=== PATIENT | female | born 1935 | race Caucasian/White ===

== ENCOUNTER 2018-12-06 07:14 | Inpatient (IN) | payer MEDICARE ==
[2018-12-06] MEDS ORDERED: NALOXONE 0.4 MG/ML 1 ML VIAL IV PRN (10:48)
[2018-12-06] MEDS ORDERED: ACETAMINOPHEN TAB 325 MG TAB PO PRN (10:48)
[2018-12-06 12:00] LABS: Glucose,Whole Blood 148 mg/dL (75-99)
[2018-12-06] MEDS: INSULIN ASPART (NovoLOG) 100 UNIT/ML VIAL SQ SCH ×3 (12:14→20:23)
--- NOTE | 2018-12-06 12:14 | P.CONS ---
History of Present Illness - Reason for Consult Consult date: 12/06/18 GI bleeding Requesting physician: Marce Marcelo - Chief Complaint Abdominal pain nausea vomiting diarrhea - History of Present Illness 83-year-old female history of cholecystectomy, breast carcinoma with lumpectomy radiation in 2006, diabetes mellitus, glaucoma, anemia maintained on oral iron admitted to [facility] emergency room with nausea vomiting epigastric pain diarrhea 1 week recently traveled to [place]. Prior to vacationing she felt well with no complaints. Patient states last Wednesday when driving down to [place] she had a bagel within a few hours developed intractable nausea vomiting diarrhea. The symptoms persisted through the weekend she cut her vacation short and with stroke home on Wednesday. Diarrhea has subsided. She reports black colored diarrhea and took herself off of oral iron about a month ago. Pain located mostly in the upper abdomen. FOBT positive. BUN 25. Creatinine 0.8. White count 7. Hemoglobin on admission 13.3 decreased to 11.8. Platelet 162. Magnesium 1.0. Amylase lipase LFTs within normal limits. Lactic acid normal 1.7. Denies weight loss fever or chills. No recent EGD. She was scheduled for outpatient colonoscopy screening next month and [facility] with Dr. Tracey. No alcohol or NSAIDs. CT abdomen and pelvis reported inflammatory changes of the duodenum and proximal jejunum favoring an infectious inflammatory enteritis duodenitis with normal appendix. Colonic diverticulosis without diverticulitis. Review of Systems Constitutional: Denies fever, chills, sweats, weight gain, or loss. HEENT: Negative for migraines, blurred vision or loss, earaches, drainage, tinnitus, oral mucosal lesions, dysphagia, or odynophagia. CARDIAC: Negative for chest pain, arrhythmias, or palpitation. RESPIRATORY: Negative for shortness of breath, hemoptysis, cough, or sputum production. GI: See HPI for pertinent findings. : Negative for hematuria, urgency, frequency, polyuria, or dysuria. GYNc: Denies possibility of . Negative vaginal discharge. MUSCULOSKELETAL: Negative for muscle aches, swelling, arthritis, and arthralgias. NEUROLOGIC: Negative for stroke or TIA. ENDOCRINE: Negative for thyroid problems. SKIN: Negative for rash or itching. PSYCHIATRIC: Negative history for depression and anxiety Past Medical History Past Medical History: Cancer, Eye Disorder, Hypertension Additional Past Medical History / Comment(s): 2006 R breast cancer with lumpectomy/radiation, NIDDM type II, neuropathy bilateral hands/feet, anemia, occasional low back pain, bilateral glaucoma History of Any Multi-Drug Resistant Organisms: None Reported Past Surgical History: Back Surgery, Breast Surgery, Cholecystectomy, Hysterectomy Additional Past Surgical History / Comment(s): R breast lumpectomy, D&C, low back surgery x2 including caging, EGD, colonoscopy, surgery for kidney stones. Past Anesthesia/Blood Transfusion Reactions: No Reported Reaction Additional Past Anesthesia/Blood Transfusion Reaction / Comm: Pt has received blood in past without reaction. Smoking Status: Never smoker - Past Family History Father Additional Family Medical History / Comment(s): Father in a hunting accident when pt was 5 yrs old. Mother Family Medical History: Cancer Additional Family Medical History / Comment(s): Leukemia Medications and Allergies Home Medications Medication Instructions Recorded Confirmed Type Aspirin [Vance Aspirin EC] 81 mg PO DAILY 12/06/18 12/06/18 History Cholecalciferol (Vitamin D3) 2,000 unit PO DAILY 12/06/18 12/06/18 History [Vitamin D3] Cod Liver Oil 1 cap PO DAILY 12/06/18 12/06/18 History Glimepiride [Amaryl] 1 mg PO HS 12/06/18 12/06/18 History Hydrochlorothiazide [Hydrodiuril] 12.5 mg PO DAILY 12/06/18 12/06/18 History Latanoprost [Xalatan 0.005%] 1 drop BOTH EYES HS 12/06/18 12/06/18 History Liraglutide [Victoza 2-Earl] 1.2 ml SQ DAILY 12/06/18 12/06/18 History Loperamide HCl [Imodium A-D] 4 mg PO BID 12/06/18 12/06/18 History Oxybutynin Chloride [Ditropan] 5 mg PO DAILY 12/06/18 12/06/18 History Potassium 99 mg PO DAILY 12/06/18 12/06/18 History Pregabalin [Lyrica] 50 mg PO BID 12/06/18 12/06/18 History Quinapril HCl [Accupril] 20 mg PO BID 12/06/18 12/06/18 History Ranitidine HCl [Zantac] 150 mg PO DAILY 12/06/18 12/06/18 History Timolol 0.5% Ophth Soln [Timoptic 1 drop BOTH EYES BID 12/06/18 12/06/18 History 0.5% Ophth Soln] Zolpidem [Ambien] 5 mg PO HS 12/06/18 12/06/18 History metFORMIN HCL [Glucophage] 1,000 mg PO PC-SUPPER 12/06/18 12/06/18 History metFORMIN HCL [Glucophage] 500 mg PO DAILY 12/06/18 12/06/18 History Allergies Allergy/AdvReac Type Severity Reaction Status Date / Time sulfamethoxazole Allergy Unknown Verified 12/06/18 11:11 [From Bactrim] trimethoprim [From Bactrim] Allergy Unknown Verified 12/06/18 11:11 Physical Exam Vitals: Vital Signs Temp Pulse Resp BP Pulse Ox 12/06/18 09:38 97.8 F 64 16 149/70 97 Intake and Output 12/05/18 12/06/18 12/06/18 22:59 06:59 14:59 Other: Voiding Method Toilet Weight 76.8 kg General appearance: The patient is alert, oriented, in no acute distress. HET: Head is normocephalic and atraumatic. Pupils are equal and reactive. Oropharynx is clear without lesions. Neck: Supple without lymphadenopathy. Trachea midline. Heart: S1 S2. Regular rate and rhythm. Lungs: No crackles or wheezes are heard. Abdomen: Soft, nontender, nondistended with bowel sounds. No peritoneal signs. No palpable organomegaly or masses. Extremities: Normal skin color and turgor. No cyanosis, rash, ulceration, clubbing, or edema. Radial and pedal pulses are 2/4 bilaterally. Neurological: No focal deficits. Strength and sensation are grossly intact. Results CT scan - abdomen: report reviewed ([facility] report reviewed by Dr. Edgar) Assessment and Plan (1) Abdominal pain Narrative/Plan: 83-year-old female admitted with mild normocytic mild acute blood loss anemia hemoglobin 13.3 decreased to 11.8 with intractable epigastric upper abdominal pain nausea vomiting black colored diarrhea [address] reported inflammatory changes of the duodenum and proximal jejunum favoring an infectious inflammatory enteritis duodenitis with normal appendix. Colonic diverticulosis without diverticulitis. Current Visit: Yes Status: Acute Code(s): R10.9 - UNSPECIFIED ABDOMINAL PAIN SNOMED Code(s): 42813849 (2) Nausea vomiting and diarrhea Current Visit: Yes Status: Acute Code(s): R11.2 - NAUSEA WITH VOMITING, UNSPECIFIED; R19.7 - DIARRHEA, UNSPECIFIED SNOMED Code(s): 5882470 (3) Guaiac positive stools Current Visit: Yes Status: Acute Code(s): R19.5 - OTHER FECAL ABNORMALITIES SNOMED Code(s): 38476892 (4) Anemia Current Visit: Yes Status: Acute Code(s): D64.9 - ANEMIA, UNSPECIFIED SNOMED Code(s): 711806443 Plan: 1. EGD. Stool studies if diarrhea returns. Protonix 40 mg twice daily. CBC monitoring. Patient can follow up in the outpatient setting with Dr. Tracey next month for colonoscopy screening. The administrative assistant office manager has discussed the risks, benefits and alternative therapies for the above-mentioned procedure and for both sedation/analgesia as well as necessary blood product administration, if indicated, as they pertain to this patient. The patient has indicated understanding and acceptance of the risks and procedures discussed. Thank you for this kind referral and the opportunity to participate in the care of your patient. This consultation was discussed with Dr. Edgar. The impression and plan of care have been directed as dictated.
[2018-12-06] MEDS ORDERED: IV FLUID CONTINUATION 900 ML IV ONE (14:41)
[2018-12-06] MEDS ORDERED: LIDOCAINE 1% INJ 10MG/ML (20 ML MDV) ONE (14:41)
[2018-12-06] MEDS ORDERED: PROPOFOL 10 MG/ML 20 ML VIAL IV ONE (14:41)
--- NOTE | 2018-12-06 15:13 | P.PCN ---
Date of Procedure: 12/06/18 Description of Procedure: BRIEF HISTORY: 83-year-old female history of cholecystectomy, breast carcinoma with lumpectomy radiation in 2006, diabetes mellitus, glaucoma, anemia maintained on oral iron admitted to [facility] emergency room with nausea vomiting epigastric pain diarrhea 1 week recently traveled to [place]. Prior to vacationing she felt well with no complaints. Patient states last Wednesday when driving down to [place] she had a bagel within a few hours developed intractable nausea vomiting diarrhea. The symptoms persisted through the weekend she cut her vacation short and with stroke home on Wednesday. Diarrhea has subsided. She reports black colored diarrhea and took herself off of oral iron about a month ago. Pain located mostly in the upper abdomen. FOBT positive. BUN 25. Creatinine 0.8. White count 7. Hemoglobin on admission 13.3 decreased to 11.8. Platelet 162. Magnesium 1.0. Amylase lipase LFTs within normal limits. Lactic acid normal 1.7. Denies weight loss fever or chills. No recent EGD. She was scheduled for outpatient colonoscopy screening next month and [facility] with Dr. Tracey. No alcohol or NSAIDs. CT abdomen and pelvis reported inflammatory changes of the duodenum and proximal jejunum favoring an infectious inflammatory enteritis duodenitis with normal appendix. Colonic diverticulosis without diverticulitis. PROCEDURE PERFORMED: Esophagogastroduodenoscopy with biopsy. PREOPERATIVE DIAGNOSIS: Epigastric abdominal pain, nausea and vomiting, stool positive for occult blood, melena. ESTIMATED BLOOD LOSS: Minimal. IV sedation per anesthesia. PROCEDURE: After informed consent was obtained, the patient was brought into the endoscopy unit. IV sedation was administered by Anesthesia under continuous monitoring. Initially the Olympus GIF-190 video endoscope was inserted into the mouth. Jocy jani intubated without any difficulty. It was gradually advanced into the stomach and duodenum and carefully examined. The bulb appeared normal, however there was severe duodenitis in the second third portion of the duodenum marked by erythema and multiple superficial ulcerations with biopsies taken. The scope at this time was withdrawn to the stomach, adequately insufflated with air, and upon careful examination, mucosa of the antrum, body, cardia and the fundus appeared normal except for some mild scattered erythema in the antrum and body which were biopsied. The scope was then withdrawn into the esophagus. The GE junction was located at 39 cm from the incisors. LA grade B esophagitis noted in the distal esophagus and biopsied. The patient tolerated the procedure well. IMPRESSION: 1. Severe duodenitis with multiple superficial nonbleeding ulcers in the second and third portion, biopsied. 2. Mild gastritis antrum and body, biopsied. 3. LA grade B esophagitis in the distal esophagus, biopsied. RECOMMENDATIONS: The findings of this examination were discussed with the patient, her son and . Await pathology from biopsies. Continue Protonix therapy twice daily. Continue to monitor hemoglobin and hematocrit and transfuse as needed. Okay for diet. Labs have been ordered including CBC, CMP and lactic acid. Consideration for CT angiography if ischemia noted on pathology.
--- NOTE | 2018-12-06 16:06 | P.HPIM ---
History of Present Illness 83-year-old the female was transferred from [facility] for possibility of endoscopy. Patient presented there with complaints of nausea vomiting epigastric abdominal pain has been going on for about one week patient appears to have chronic diarrhea as well. Patient was having flulike symptoms he appears to have gastroenteritis CAT scan of the abdomen did not show any dermatitis but did show significant inflammatory changes in the ER in one proximal jejunum consistent with enteritis and duodenitis. Patient had a ques tionable history of dark stools. Although patient is signs of mentation at home. Discussed with gastroneurology tended of being upper GI endoscopy which showed 6 severe esophagitis. Patient denied any recent antibiotic use but will obtain C. diff testing. Patient is on IV Protonix at this time. Donaldo pain is diffuse and mostly crampy presently resolved Review of Systems REVIEW OF SYSTEMS: CONSTITUTIONAL: No fever, no malaise, no fatigue. HEENT: No recent visual problems or hearing problems. Denied any sore throat. CARDIOVASCULAR: No chest pain, orthopnea, PND, no palpitations, no syncope. PULMONARY: No shortness of breath, no cough, no hemoptysis. GASTROINTESTINAL: As mentioned in HPI NEUROLOGICAL: No headaches, no weakness, no numbness. HEMATOLOGICAL: Denies any bleeding or petechiae. GENITOURINARY: Denies any burning micturition, frequency, or urgency. MUSCULOSKELETAL/RHEUMATOLOGICAL: Denies any joint pain, swelling, or any muscle pain. ENDOCRINE: Denies any polyuria or polydipsia. The rest of the 14-point review of systems is negative. Past Medical History Past Medical History: Cancer, Eye Disorder, Hypertension Additional Past Medical History / Comment(s): 2007 R breast cancer with lumpectomy/radiation, NIDDM type II, neuropathy bilateral hands/feet, anemia, occasional low back pain, bilateral glaucoma History of Any Multi-Drug Resistant Organisms: None Reported Past Surgical History: Back Surgery, Breast Surgery, Cholecystectomy, Hysterectomy Additional Past Surgical History / Comment(s): R breast lumpectomy, D&C, low back surgery x2 including caging, EGD, colonoscopy, surgery for kidney stones. Past Anesthesia/Blood Transfusion Reactions: No Reported Reaction Additional Past Anesthesia/Blood Transfusion Reaction / Comment(s): Pt has received blood in past without reaction. Smoking Status: Never smoker - Past Family History Father Additional Family Medical History / Comment(s): Father in a hunting accident when pt was 5 yrs old. Mother Family Medical History: Cancer Additional Family Medical History / Comment(s): Leukemia Medications and Allergies Home Medications Medication Instructions Recorded Confirmed Type Aspirin [Pima Aspirin EC] 81 mg PO DAILY 12/06/18 12/06/18 History Cholecalciferol (Vitamin D3) 2,000 unit PO DAILY 12/06/18 12/06/18 History [Vitamin D3] Cod Liver Oil 1 cap PO DAILY 12/06/18 12/06/18 History Glimepiride [Amaryl] 1 mg PO HS 12/06/18 12/06/18 History Hydrochlorothiazide [Hydrodiuril] 12.5 mg PO DAILY 12/06/18 12/06/18 History Latanoprost [Xalatan 0.005%] 1 drop BOTH EYES HS 12/06/18 12/06/18 History Liraglutide [Victoza 2-Earl] 1.2 ml SQ DAILY 12/06/18 12/06/18 History Loperamide HCl [Imodium A-D] 4 mg PO BID 12/06/18 12/06/18 History Oxybutynin Chloride [Ditropan] 5 mg PO DAILY 12/06/18 12/06/18 History Potassium 99 mg PO DAILY 12/06/18 12/06/18 History Pregabalin [Lyrica] 50 mg PO BID 12/06/18 12/06/18 History Quinapril HCl [Accupril] 20 mg PO BID 12/06/18 12/06/18 History Ranitidine HCl [Zantac] 150 mg PO DAILY 12/06/18 12/06/18 History Timolol 0.5% Ophth Soln [Timoptic 1 drop BOTH EYES BID 12/06/18 12/06/18 History 0.5% Ophth Soln] Zolpidem [Ambien] 5 mg PO HS 12/06/18 12/06/18 History metFORMIN HCL [Glucophage] 1,000 mg PO PC-SUPPER 12/06/18 12/06/18 History metFORMIN HCL [Glucophage] 500 mg PO DAILY 12/06/18 12/06/18 History Allergies Allergy/AdvReac Type Severity Reaction Status Date / Time sulfamethoxazole Allergy Unknown Verified 12/06/18 11:11 [From Bactrim] trimethoprim [From Bactrim] Allergy Unknown Verified 12/06/18 11:11 Physical Exam Vitals: Vital Signs Temp Pulse Resp BP Pulse Ox 12/06/18 14:08 97.9 F 66 16 158/75 97 12/06/18 09:38 97.8 F 64 16 149/70 97 Intake and Output 12/06/18 12/06/18 12/06/18 06:59 14:59 22:59 Intake Total 100 Balance 100 Intake: IV 100 Other: Voiding Method Toilet # Voids 1 Weight 76.8 kg PHYSICAL EXAMINATION: GENERAL: The patient is alert and oriented x3, not in any acute distress. Well d eveloped, well nourished. HEENT: Pupils are round and equally reacting to light. EOMI. No scleral icterus. No conjunctival pallor. Normocephalic, atraumatic. No pharyngeal erythema. No thyromegaly. CARDIOVASCULAR: S1 and S2 present. No murmurs, rubs, or gallops. PULMONARY: Chest is clear to auscultation, no wheezing or crackles. ABDOMEN: Soft, nontender, nondistended, normoactive bowel sounds. No palpable organomegaly. MUSCULOSKELETAL: No joint swelling or deformity. EXTREMITIES: No cyanosis, clubbing, or pedal edema. NEUROLOGICAL: Gross neurological examination did not reveal any focal deficits. SKIN: No rashes. Results Labs: Abnormal Lab Results - Last 24 Hours (Table) 12/06/18 Range/Units 11:55 POC Glucose (mg/dL) 148 H (75-99) mg/dL Thrombosis Risk Factor Assmnt - Choose All That Apply Any of the Below Risk Factors Present?: Yes Each Factor Represents 1 point: Obesity (BMI >25) Other Risk Factors: Yes Each Risk Factor Represents 2 Points: Malignancy Each Risk Factor Represents 3 Points: Age 75 years or older Other congenital or acquired thrombophilia - If yes, enter type in comment: No Thrombosis Risk Factor Assessment Total Risk Factor Score: 6 Thrombosis Risk Factor Assessment Level: High Risk Assessment and Plan Plan: Possible viral gastroenteritis supportive care IV fluids. -Severe duodenitis and gastritis: Protonix twice a day IV -Hypertension continue with. -Chronic low back pain with peripheral neuropathy continue with Lyrica Azithromycin urinary incontinence for which patient is on oxybutynin which will be continued -Type 2 diabetes mellitus resumed on home regimen along with sliding scale insulin glimepiride and metformin will be temporally held. -History of chronic diarrhea may need colonoscopy as an outpatient -DVT prophylaxis: Early ambulation
[2018-12-06 16:09] LABS: Basophils % (A) 0 %; Eosinophils # (A) 0.1 k/uL (0-0.7); Eosinophils % (A) 1 %; HGB 11.8 gm/dL (11.4-16.0); Hypochromasia Slight; Lymphocytes # (A) 1.1 k/uL (1.0-4.8); Lymphocytes % (A) 16 %; MCH 28.7 pg (25.0-35.0); MCHC 32.8 g/dL (31.0-37.0); MCV 87.5 fL (80.0-100.0); Mean Platelet Volume 8.8; Monocytes # (A) 0.7 k/uL (0-1.0); Monocytes % (A) 10 %; Neutrophils % (A) 70 %; Platelet Count 142 k/uL (150-450); RBC 4.12 m/uL (3.80-5.40); RDW 13.8 % (11.5-15.5); WBC 7.1 k/uL (3.8-10.6)
[2018-12-06 16:12] LABS: ALT 28 U/L (9-52); AST 32 U/L (14-36); Alkaline Phosphatase 38 U/L (38-126); Anion Gap 6 mmol/L; Blood Urea Nitrogen 8 mg/dL (7-17); Carbon Dioxide 24 mmol/L (22-30); Chloride 109 mmol/L (98-107); Glucose 135 mg/dL (74-99); Sodium 139 mmol/L (137-145); Total Bilirubin 0.7 mg/dL (0.2-1.3); Total Protein 5.5 g/dL (6.3-8.2)
[2018-12-06 16:24] LABS: Potassium 4.4 mmol/L (3.5-5.1)
[2018-12-06 16:43] LABS: Glucose,Whole Blood 135 mg/dL (75-99)
[2018-12-06] MEDS: SODIUM CHLORIDE 0.9% 1,000 ML IV SCH (17:49)
[2018-12-06] MEDS: MAGNESIUM SULFATE-D5W PMX 1 GM in DEXTROSE/WATER 1 100ML.BAG IVPB SCH ×3 (17:50→21:38)
[2018-12-06 20:09] LABS: Glucose,Whole Blood 183 mg/dL (75-99)
[2018-12-06] MEDS: PREGABALIN 50 MG CAP PO SCH (20:22)
[2018-12-06] MEDS: TIMOLOL 0.5% OPHTH DROPS 5 ML BTL BOTH EYES SCH (20:22)
[2018-12-06] MEDS: LISINOPRIL 20 MG TAB PO SCH (20:22)
[2018-12-06] MEDS: PANTOPRAZOLE 40 MG/10 ML VIAL IV SCH (20:22)
[2018-12-06] MEDS ORDERED: LATANOPROST 0.005% OPHTH DROPS 2.5 ML BTL BOTH EYES SCH (21:00)
[2018-12-07] MEDS: SODIUM CHLORIDE 0.9% 1,000 ML IV SCH ×2 (02:27→12:28)
[2018-12-07 07:05] LABS: Glucose,Whole Blood 177 mg/dL (75-99)
[2018-12-07] MEDS: PREGABALIN 50 MG CAP PO SCH (08:10)
[2018-12-07] MEDS: PANTOPRAZOLE 40 MG/10 ML VIAL IV SCH (08:10)
[2018-12-07] MEDS: LISINOPRIL 20 MG TAB PO SCH (08:10)
[2018-12-07] MEDS: INSULIN ASPART (NovoLOG) 100 UNIT/ML VIAL SQ SCH (08:11)
[2018-12-07] MEDS: TIMOLOL 0.5% OPHTH DROPS 5 ML BTL BOTH EYES SCH (08:15)
[2018-12-07 08:17] VITALS: BP 164/73; PULSE 67; RESP 12; TEMP 98.5
[2018-12-07] MEDS ORDERED: OXYBUTYNIN CHLORIDE 5 MG TAB PO SCH (09:00)
[2018-12-07] MEDS ORDERED: ASPIRIN 81 MG PO SCH (09:00)
[2018-12-07 11:04] LABS: ALT 30 U/L (9-52); AST 20 U/L (14-36); Albumin 2.9 g/dL (3.5-5.0); Alkaline Phosphatase 48 U/L (38-126); Anion Gap 6 mmol/L; Blood Urea Nitrogen 6 mg/dL (7-17); Calcium 8.2 mg/dL (8.4-10.2); Carbon Dioxide 28 mmol/L (22-30); Chloride 106 mmol/L (98-107); Glucose 214 mg/dL (74-99); Magnesium 1.7 mg/dL (1.6-2.3); Potassium 3.7 mmol/L (3.5-5.1); Sodium 140 mmol/L (137-145); Total Bilirubin 0.4 mg/dL (0.2-1.3); Total Protein 5.4 g/dL (6.3-8.2)
[2018-12-07 11:40] LABS: Glucose,Whole Blood 235 mg/dL (75-99)
[2018-12-07 12:09] LABS: Basophils % (A) 0 %; Eosinophils # (A) 0.1 k/uL (0-0.7); Eosinophils % (A) 2 %; HGB 12.1 gm/dL (11.4-16.0); Hypochromasia Slight; Lymphocytes # (A) 0.9 k/uL (1.0-4.8); Lymphocytes % (A) 12 %; MCH 28.3 pg (25.0-35.0); MCV 91.5 fL (80.0-100.0); Mean Platelet Volume 7.9; Monocytes # (A) 0.5 k/uL (0-1.0); Monocytes % (A) 6 %; Neutrophils # (A) 5.8 k/uL (1.3-7.7); Neutrophils % (A) 78 %; Platelet Count 171 k/uL (150-450); RBC 4.26 m/uL (3.80-5.40); RDW 13.7 % (11.5-15.5); WBC 7.4 k/uL (3.8-10.6)
--- NOTE | 2018-12-07 12:52 | P.DS ---
Providers Date of admission: 12/06/18 09:37 Attending physician: Dain Ayon MD Primary care physician: Stated None Hospital Course: 83-year-old the female was transferred from [facility] for possibility of endoscopy. Patient presented there with complaints of nausea vomiting epigastric abdominal pain has been going on for about one week patient appears to have chronic diarrhea as well. Patient was having flulike symptoms he appears to have gastroenteritis CAT scan of the abdomen did not show any dermatitis but did show significant inflammatory changes in the ER in one proximal jejunum consistent with enteritis and duodenitis. Patient had a q uestionable history of dark stools. Although patient is signs of mentation at home. Discussed with gastroneurology tended of being upper GI endoscopy which showed 6 severe esophagitis. Patient denied any recent antibiotic use but will obtain C. diff testing. Patient is on IV Protonix at this time. Donaldo pain is diffuse and mostly crampy presently resolved. 12/07/2018 No evidence of GI bleed any more have symptoms completely resolved feeling much better wanted to go home. Patient will be discharged on 40 mg of Prilosec for a month. Patient will follow gastric body as an outpatient. If her biopsy showed 6 ischemia patient at that time related a CT angio of the abdomen. PHYSICAL EXAMINATION: GENERAL: The patient is alert and oriented x3, not in any acute distress. Well developed, well nourished. HEENT: Pupils are round and equally reacting to light. EOMI. No scleral icterus. No conjunctival pallor. Normocephalic, atraumatic. No pharyngeal erythema. No thyromegaly. CARDIOVASCULAR: S1 and S2 present. No murmurs, rubs, or gallops. PULMONARY: Chest is clear to auscultation, no wheezing or crackles. ABDOMEN: Soft, nontender, nondistended, normoactive bowel sounds. No palpable organomegaly. MUSCULOSKELETAL: No joint swelling or deformity. EXTREMITIES: No cyanosis, clubbing, or pedal edema. NEUROLOGICAL: Gross neurological examination did not reveal any focal deficits. SKIN: No rashes. Assessment and Plan Plan: Possible viral gastroenteritis -Severe duodenitis and gastritis: -Hypertension continue with. -Chronic low back pain with peripheral neuropathy continue with Lyrica Azithromycin urinary incontinence for which patient is on oxybutynin which will be continued -Type 2 diabetes mellitus resumed on home regimen -History of chronic diarrhea may need colonoscopy as an outpatient -DVT prophylaxis: Early ambulation Plan - Discharge Summary Discharge Rx Participant: No New Discharge Prescriptions: New Omeprazole [PriLOSEC] 40 mg PO -[facility] #30 capsule.dr Continue Cholecalciferol (Vitamin D3) [Vitamin D3] 2,000 unit PO DAILY Timolol 0.5% Ophth Soln [Timoptic 0.5% Ophth Soln] 1 drop BOTH EYES BID Liraglutide [Victoza 2-Earl] 1.2 ml SQ DAILY Potassium 99 mg PO DAILY Oxybutynin Chloride [Ditropan] 5 mg PO DAILY metFORMIN HCL [Glucophage] 1,000 mg PO PC-SUPPER metFORMIN HCL [Glucophage] 500 mg PO DAILY Pregabalin [Lyrica] 50 mg PO BID Loperamide HCl [Imodium A-D] 4 mg PO BID Latanoprost [Xalatan 0.005%] 1 drop BOTH EYES HS Hydrochlorothiazide [Hydrodiuril] 12.5 mg PO DAILY Quinapril HCl [Accupril] 20 mg PO BID Glimepiride [Amaryl] 1 mg PO HS Cod Liver Oil 1 cap PO DAILY Aspirin [Jay Aspirin EC] 81 mg PO DAILY Zolpidem [Ambien] 5 mg PO HS Discontinued Ranitidine HCl [Zantac] 150 mg PO DAILY Discharge Medication List Aspirin [Jay Aspirin EC] 81 mg PO DAILY 12/06/18 [History] Cholecalciferol (Vitamin D3) [Vitamin D3] 2,000 unit PO DAILY 12/06/18 [History] Cod Liver Oil 1 cap PO DAILY 12/06/18 [History] Glimepiride [Amaryl] 1 mg PO HS 12/06/18 [History] Hydrochlorothiazide [Hydrodiuril] 12.5 mg PO DAILY 12/06/18 [History] Latanoprost [Xalatan 0.005%] 1 drop BOTH EYES HS 12/06/18 [History] Liraglutide [Victoza 2-Earl] 1.2 ml SQ DAILY 12/06/18 [History] Loperamide HCl [Imodium A-D] 4 mg PO BID 12/06/18 [History] Oxybutynin Chloride [Ditropan] 5 mg PO DAILY 12/06/18 [History] Potassium 99 mg PO DAILY 12/06/18 [History] Pregabalin [Lyrica] 50 mg PO BID 12/06/18 [History] Quinapril HCl [Accupril] 20 mg PO BID 12/06/18 [History] Timolol 0.5% Ophth Soln [Timoptic 0.5% Ophth Soln] 1 drop BOTH EYES BID 12/06/18 [History] Zolpidem [Ambien] 5 mg PO HS 12/06/18 [History] metFORMIN HCL [Glucophage] 1,000 mg PO PC-SUPPER 12/06/18 [History] metFORMIN HCL [Glucophage] 500 mg PO DAILY 12/06/18 [History] Omeprazole [PriLOSEC] 40 mg PO [id number] #30 capsule. 12/07/18 [Rx] Follow up Appointment(s)/Referral(s): Deysi Tracey MD [STAFF PHYSICIAN] - 01/05/19 12:00 pm (Has appt at [place] office in December, if cannot get in earlier please add that date to discharge) Discharge Disposition: HOME SELF-CARE
[2018-12-07 18:25] LABS: Hemoglobin A1C 6.7 % (4.0-6.0)
== END 2018-12-07 13:35 | disposition home or self-care (01) | DRG 392 ==
LOC: 4SSUR 09:37
PROVIDERS: ADMIT Internal Medicine; ATTEND Internal Medicine
PROC: 0DB78ZX Excision of Stomach, Pylorus, Via Natural or Artificial Opening Endoscopic, Diagnostic (ICD-10-PCS; 2018-12-06)
PROC: 0DB38ZX Excision of Lower Esophagus, Via Natural or Artificial Opening Endoscopic, Diagnostic (ICD-10-PCS; 2018-12-06)
PROC: 0DB98ZX Excision of Duodenum, Via Natural or Artificial Opening Endoscopic, Diagnostic (ICD-10-PCS; principal; 2018-12-06 09:05)
DX: K29.80 Duodenitis without bleeding (principal); D62 Acute posthemorrhagic anemia; K29.70 Gastritis, unspecified, without bleeding; K20.9 Esophagitis, unspecified; K52.9 Noninfective gastroenteritis and colitis, unspecified; K57.30 Diverticulosis of large intestine without perforation or abscess without bleeding; R32 Unspecified urinary incontinence; Z80.6 Family history of leukemia; Z79.899 Other long term (current) drug therapy; Z79.84 Long term (current) use of oral hypoglycemic drugs; Z92.3 Personal history of irradiation; Z90.710 Acquired absence of both cervix and uterus; Z87.442 Personal history of urinary calculi; Z85.3 Personal history of malignant neoplasm of breast; E11.9 Type 2 diabetes mellitus without complications; E11.42 Type 2 diabetes mellitus with diabetic polyneuropathy; G89.29 Other chronic pain; H40.9 Unspecified glaucoma; I10 Essential (primary) hypertension; M54.5 Low back pain; Z88.2 Allergy status to sulfonamides
CPT/HCPCS: 43239; 80053; 83036; 83605; 83735; 85025; 87324; 88305

== ENCOUNTER → 2019-03-27 | Day surgery (SDC) | payer MEDICARE, BC ==
[2019-03-27 11:29] VITALS: RESP 16; BMI 33.4
[2019-03-27 14:21] VITALS: BP 145/78; PULSE 72; TEMP 97.7
--- NOTE | 2019-03-28 14:26 | USB ---
EXAMINATION TYPE: US biopsy breast VAD RT, MG diagnostic mammo RT wo CAD DATE OF EXAM: 03/27/2019 CLINICAL HISTORY: 84-year-old female N63 breast lump RT breast. Referred from [facility] for right breast biopsy. History of right breast cancer 12 years ago. TECHNIQUE: Ultrasound guided core biopsy of the right breast. COMPARISON: Outside imaging 03/06/2019 and 02/16/2019 FINDINGS: The procedure of ultrasound guided core biopsy was explained to the patient. Benefits, alternatives, and risks were discussed. An informed consent was then obtained. Initial scanning redemonstrated a similar focal hypoechoic area measuring 9 mm located at the 2:00 position rather than the 4:00 position. Suspect that patient positioning accounts for the altered altered location. The lower inner quadrant was thoroughly scanned and no other suspicious biopsy target is identified to correspond to the 4:00 outside ultrasound finding. The patient was placed in supine positioning for imaging and for the procedure. The overlying skin was prepped and draped in usual sterile fashion. Lidocaine was used as anesthetic into the skin and subcutaneous tissue up to area of concern in the 2:00 right breast. Under ultrasound guidance, a 19-gauge vacuum-assisted mammotome Elite biopsy gun was used to obtain 4 core samples. Following this, a ribbon clip was left at the site of biopsy. The patient tolerated the procedure well without any immediate complication. The patient was kept in the radiology department for short stay after the procedure and then discharged home in stable condition. Post procedure mammogram shows clip at the 3:00 position corresponding to the initially identified mammographic focal asymmetry. IMPRESSION: Successful, uncomplicated ultrasound guided core biopsy of the 2-3 o'clock area of concern in the right breast corresponding to the new/increasing mammographic focal asymmetry; full pathology results to follow. Patient with personal history of right breast cancer treated 12 years ago. Note that outside ultrasound described the lesion to be at 4:00. Pathology Results: Benign RIGHT BREAST, ULTRASOUND GUIDED CORE BIOPSY: Nodular scar with fat necrosis, inflammation and hemorrhage. Negative for malignancy. Recommendation Follow up mammogram of the right breast in 6 months. DAVIDD
== END | disposition home or self-care (01) ==
LOC: RADUSWWP 10:43
PROVIDERS: ATTEND Internal Medicine Hematology & Oncology
DX: N64.1 Fat necrosis of breast (principal); N61.0 Mastitis without abscess; Z85.3 Personal history of malignant neoplasm of breast
CPT/HCPCS: 88305; 77065; 19083; A4648; J2001

== ENCOUNTER → 2019-11-24 | Day surgery (SDC) | payer MEDICARE, BC ==
[2019-11-24 10:51] VITALS: BP 124/56; PULSE 72; RESP 16; TEMP 98.1
--- NOTE | 2019-11-24 12:15 | USB ---
EXAMINATION TYPE: US discontinued breast bx RT DATE OF EXAM: 11/24/2019 CLINICAL HISTORY: R92.8 abn mamm. Abnormal ultrasound. TECHNIQUE: Ultrasound guided core biopsy of right breast. COMPARISON: Prior outside right breast ultrasound September 06, 2019 and mammogram September 04, 2019 a nd older outside studies along with right breast ultrasound biopsy here March 27, 2019 FINDINGS: The procedure of ultrasound guided core biopsy was explained to the patient. Benefits, alt ernatives, and risks were discussed. An informed consent was then obtained. The patient was placed in supine positioning for imaging and for the procedure. Preprocedure scannin g of the entire right breast 12 to 6:00 position including targeting 2 and 4:00 levels at area of rayo or ultrasound concern corresponding to mammogram biopsy clip failed to redemonstrate suspicious hypoe choic lesion near 1 cm which was biopsied with benign results March 27, 2019 felt slightly increa sing in size on outside ultrasound. Real-time scanning performed by myself also at time of patient pr esentation. Because distinct enlarging hypoechoic lesion cannot be identified. Biopsy procedure was canceled. Patient was agreeable to cancel procedure and short-term follow-up. The patient was kept in the radiology department for short stay after the attempted procedure and the n discharged home in stable condition. IMPRESSION: Unsuccessful, canceled ultrasound guided core biopsy of area of concern in the right . Pa tient due for bilateral breast mammogram in 3 months time to be back on annual schedule. Repeat diagn ostic right breast ultrasound advised at time of mammogram. BI-RADS 3 probable benign findings.
== END ==
LOC: RADUSWWP 09:20
PROVIDERS: ATTEND Surgery
DX: R92.8 Other abnormal and inconclusive findings on diagnostic imaging of breast (principal); Z11.59 Encounter for screening for other viral diseases
CPT/HCPCS: 87635

== ENCOUNTER → 2020-12-18 | Outpatient (CLI) | payer MEDICARE, BC ==
--- NOTE | 2020-12-18 12:45 | MR ---
EXAMINATION TYPE: MR knee RT wo con DATE OF EXAM: 12/18/2020 COMPARISON: Outside right knee x-ray 1 week ago HISTORY: R knee pain and locking for years per patient. TECHNIQUE: Multiplanar, multisequence imaging of the right knee is performed without IV contrast. FINDINGS: MEDIAL MENISCUS: Increased signal posterior horn with some fraying along posterior margin. LATERAL MENISCUS: Anterior horn has globular increased signal extending to superior articular surface . CRUCIATE LIGAMENTS: The anterior and posterior cruciate ligaments are intact and unremarkable. COLLATERAL LIGAMENTS: The medial collateral ligament and lateral collateral ligament complex are inta ct and unremarkable. EXTENSOR MECHANISM: Visualized quadriceps and patellar tendons are intact. EFFUSION: There is moderate size suprapatellar joint effusion. POPLITEAL CYST: Moderate sized multi septated popliteal/weaver cyst sagittal image 10 with slight latonia rounding fluid. TRICOMPARTMENT SPACES: [id number]-hg-[id number] tricompartment joint space loss and spurring. CARTILAGE: Chondromalacia patella with cartilaginous loss along the posterior patellar pole particula rly medial aspect. Thinning of articular cartilage medial tibiofemoral compartment. BONE MARROW SIGNAL: No focal abnormal marrow signal is appreciated. OTHER: No additional significant abnormality is appreciated. IMPRESSION: 1. Full-thickness tear anterior horn of lateral meniscus. 2. Full-thickness tear posterior horn of medial meniscus. 3. Fairly moderate tricompartment degenerative changes as detailed above. 4. Moderate-sized suprapatellar joint effusion. 5. Moderate size septated leaking popliteal cyst.
== END | disposition home or self-care (01) ==
LOC: RADMRIMAIN 11:16
PROVIDERS: ATTEND Orthopaedic Surgery
DX: M23.321 Other meniscus derangements, posterior horn of medial meniscus, right knee (principal); M23.341 Other meniscus derangements, anterior horn of lateral meniscus, right knee; M66.0 Rupture of popliteal cyst; M17.11 Unilateral primary osteoarthritis, right knee

== ENCOUNTER 2021-01-23 08:10 | Day surgery (SDC) | payer MEDICARE, BC ==
[2021-01-22 11:52] VITALS: BMI 32.5
--- NOTE | 2021-01-22 18:52 | HP ---
HISTORY AND PHYSICAL REASON FOR ADMISSION: Surgery is scheduled for 01/23/2021 HISTORY OF PRESENT ILLNESS: Ángela Donohue is an 85-year-old patient seen with progressive right knee pain. We discussed options. She elected to proceed with right knee arthroscopy. Consent obtained. PAST MEDICAL HISTORY: Hypertension, hyperlipidemia, pyt-wbmtbwz-iiiajwued diabetes. PAST SURGICAL HISTORY: Cholecystectomy, hysterectomy, sinus surgery. MEDICATIONS: Atenolol, aspirin, glimepiride, metformin, omeprazole. ALLERGIES: NONE. SOCIAL HISTORY: She denies tobacco use. Cardiac clearance was provided by Dr. Rodriges. PHYSICAL EXAMINATION: Examination of the right knee: Range of motion is -2 to 125. Mild effusion. Tenderness medial joint line. Positive medial Clay's. Positive lateral Clay's. Tenderness along the lateral joint line. Ligaments stable. Hip rotation is without pain. Distal neurovascular exam is intact. RADIOGRAPHS: Right knee radiographs revealed some mild osteoarthritic changes, as well as chondrocalcinosis. MRI revealed a complex medial and lateral meniscal tears. IMPRESSION: 1. Internal derangement of right knee with medial and lateral meniscal tears. 2. Hypertension. 3. Hyperlipidemia. 4. Sqq-zyxacdz-wsibzrrgk diabetes. PLAN: Right knee arthroscopy with partial meniscectomy and debridement. Surgery scheduled for 01/23/2021. MMODL / IJN: [id number] /
[~2021-01-23 08:10] MED LIST: HYDROmorphone 0.5 MG/0.5 ML SYRINGE IVP PRN; LACTATED RINGERS 1,000 ML IV SCH; ONDANSETRON 4 MG/2 ML VIAL IVP ONE
[2021-01-23 09:08] LABS: Glucose,Whole Blood 142 mg/dL (75-99)
[2021-01-23] MEDS ORDERED: DEXAMETHASONE SOD PHOSPHATE 4 MG/ML 1 ML VIAL IVP ONE (09:23)
[2021-01-23] MEDS ORDERED: LIDOCAINE 1% INJ 10MG/ML (20 ML MDV) ONE (09:28)
[2021-01-23] MEDS ORDERED: fentaNYL (PF) 50 MCG/ML 2 ML AMP ONE (09:28)
[2021-01-23] MEDS ORDERED: PROPOFOL 10 MG/ML 20 ML VIAL IV ONE (09:28)
[2021-01-23] MEDS ORDERED: BUPIVACAINE (PF) 0.25% 30 ML VIAL SQ ONE (09:47)
[2021-01-23 10:11] VITALS: RESP 16; TEMP 97.9
--- NOTE | 2021-01-23 10:15 | P.OP ---
Date of Procedure: 01/23/21 Preoperative Diagnosis: Internal derangement right knee Postoperative Diagnosis: 1. Tear medial meniscus right knee 2. Grade 2/3 chondromalacia medial femoral condyle right knee 3. Reactive synovitis medial, lateral and suprapatellar compartments right knee Procedure(s) Performed: 1. Arthroscopic partial medial meniscectomy right knee 2. Arthroscopic chondroplasty medial femoral condyle right knee 3. Arthroscopic partial synovectomy medial, lateral and suprapatellar compartments right knee Anesthesia: PRINCEA, local Surgeon: Perry Rosales Estimated Blood Loss (ml): 5 Pathology: none sent Condition: stable Disposition: PACU Indications for Procedure: 85-year-old patient seen with progressive right knee pain. After treatment options were discussed, she elected to proceed with arthroscopy. Operative Findings: See description of procedure Description of Procedure: Patient was taken to the operative suite. Patient underwent a general anesthetic by the department of anesthesia. Patient was given preoperative antibiotics. The right lower extremity was placed in a well-padded arthroscopic leg maddox. The right leg was prepped and draped in the normal sterile orthopedic fashion. A lateral parapatellar and suprapatellar incision was made. Trochars were inserted. Arthroscopy was initiated. Suprapatellar pouch revealed diffuse thick reactive synovitis. The patellofemoral joint appeared to articulate congruently. There was grade 2/3 chondromalacia of the patella with no osteochondral tears present. The scope was guided into the medial gutter. No loose bodies or plica were identified. The scope was then guided into the medial compartment. A medial parapatellar incision was made. Trocar inserted followed by probe. There was a complex tear involving the posterior horn and midbody medial meniscus. There were grade 2/3 chondromalacia changes the medial femoral condyle. There was thick reactive synovitis anteriorly. I performed a partial medial meniscectomy getting down to stable meniscal tissue. I performed a chondroplasty of the medial femoral condyle getting down to stable osteochondral tissue. I performed a partial synovectomy decompressing the thick reactive synovitis. Shaver was removed. The residual meniscus was stable. The residual osteochondral surface was stable. There was good decompression of the synovitis. Scope and probe were then guided into the intercondylar notch. Cruciates were identified, probed and found to be stable. The scope and probe were then guided into lateral compartment. There was some superficial fraying of the anterior horn lateral meniscus. There were mild grade 1 chondromalacia changes of lateral compartment. There was thick reactive synovitis anteriorly. I introduced a motorized shaver and debrided out that area superficial fraying. I now performed a partial synovectomy decompressing the thick reactive synovitis. The shaver was now removed. There was good decompression of the synovitis. The scope was in guided back into the suprapatellar compartment. Used a motorized shaver into the super patellar compartment. I debrided some piecemeal fragments of meniscus I encountered. I performed a partial synovectomy decompressing the thick reactive synovitis. The shaver was now removed. I now took one more look on the entire knee, no residual debris. Instruments were now removed from the joint. The joint was infiltrated with .25% Marcaine. Steri-Strips were applied to the portal sites. Sterile dressings were applied. The patient was placed into a JAXON hose. No tourniquet was utilized. The patient was awakened, transferred to a bed and taken to recovery stable satisfactory condition.
[2021-01-23 11:43] VITALS: BP 128/79; PULSE 77
== END 2021-01-23 12:03 | disposition home or self-care (01) ==
LOC: OR 08:10
PROVIDERS: ATTEND Orthopaedic Surgery
DX: M23.203 Derangement of unspecified medial meniscus due to old tear or injury, right knee (principal); M94.261 Chondromalacia, right knee; M65.861 Other synovitis and tenosynovitis, right lower leg; I10 Essential (primary) hypertension; E78.5 Hyperlipidemia, unspecified; E11.9 Type 2 diabetes mellitus without complications; Z90.49 Acquired absence of other specified parts of digestive tract; Z90.710 Acquired absence of both cervix and uterus; Z98.890 Other specified postprocedural states; Z88.2 Allergy status to sulfonamides; Z79.84 Long term (current) use of oral hypoglycemic drugs; Z79.82 Long term (current) use of aspirin; Z79.899 Other long term (current) drug therapy; Z87.442 Personal history of urinary calculi; Z88.8 Allergy status to other drugs, medicaments and biological substances
CPT/HCPCS: 29881; 29876; J1100; J0690; J2405; J2001; J3010; J2704

== ENCOUNTER → 2021-05-22 | Outpatient (CLI) | payer MEDICARE, BC | END | disposition home or self-care (01) | LOC: LABPAT 14:00 | PROVIDERS: ATTEND Orthopaedic Surgery | DX: Z01.812 Encounter for preprocedural laboratory examination (principal); M17.12 Unilateral primary osteoarthritis, left knee; Z22.322 Carrier or suspected carrier of Methicillin resistant Staphylococcus aureus | CPT/HCPCS: 87070 ==

== ENCOUNTER 2021-05-26 10:39 | Inpatient (IN) | payer MEDICARE, BC ==
[2021-05-22 11:01] VITALS: BMI 31.4
--- NOTE | 2021-05-25 18:03 | HP ---
HISTORY AND PHYSICAL DATE OF SURGERY: 05/26/2021 Ángela Donohue is an 86-year-old patient seen with symptomatic left knee osteoarthritis. We discussed options for treatment. She elected to proceed with left total knee arthroplasty. Consent was obtained. Cardiac clearance was provided by Dr. Rodriges. PAST MEDICAL HISTORY: Hypertension, hyperlipidemia, zvk-wszvjud-gelwmxlki diabetes, cardiovascular disease. PAST SURGICAL HISTORY: Cholecystectomy, hysterectomy, sinus surgery. DAILY MEDICATIONS: Atenolol, glimepiride, metformin, omeprazole, quinapril. ALLERGIES: NONE. SOCIAL HISTORY: She denies tobacco use. PHYSICAL EVALUATION OF THE LEFT KNEE: Range of motions is negative 2/3 to 125. Tenderness, medial joint line. Crepitus, medial and patellofemoral compartments with range of motion. Pain with patellofemoral compression. Ligaments stable. Hip rotation without pain. Distal neurovascular exam is intact. Radiographs of the left knee reveal severe osteoarthritic changes. IMPRESSION: 1. Left knee osteoarthritis. 2. Hypertension. 3. Hyperlipidemia. 4. Zpq-mxtydwd-visebtskt diabetes. PLAN: Left total knee arthroplasty. MMODL / IJN: [id number] /
[~2021-05-26 10:39] MED LIST changes: +ACETAMINOPHEN TAB 500 MG TAB PO PRN; +DEXAMETHASONE SOD PHOSPHATE 4 MG/ML 1 ML VIAL IV ONE; -LACTATED RINGERS 1,000 ML IV SCH; +MELOXICAM 7.5 MG TAB PO PRN; +MIDAZOLAM 2 MG/2 ML VIAL IV PRN; +ROPIVACAINE/EPI/CLONIDINE/KET 50 ML SYRINGE MISCELLANE PRN; +TRANEXAMIC ACID 1,000 MG in SODIUM CHLORIDE 0.9% 100 ML IVPB PRN; +VANCOMYCIN 1,000 MG in SODIUM CHLORIDE 0.9% 250 ML IVPB ONE
[2021-05-26] MEDS ORDERED: LIDOCAINE 1% (10MG/ML) FOR IV START INTRADERMA ONE (11:43)
[2021-05-26 11:44] LABS: Glucose,Whole Blood 98 mg/dL (75-99)
[2021-05-26] MEDS: LACTATED RINGERS 1,000 ML IV SCH (11:44)
[2021-05-26] MEDS ORDERED: MIDAZOLAM 2 MG/2 ML VIAL IVP ONE (12:00)
[2021-05-26] MEDS ORDERED: fentaNYL (PF) 50 MCG/ML 2 ML AMP IVP ONE (12:01)
[2021-05-26] MEDS ORDERED: TRANEXAMIC ACID 1,000 MG/10 ML VIAL ONE (12:44)
[2021-05-26] MEDS ORDERED: fentaNYL (PF) 50 MCG/ML 2 ML AMP ONE (12:44)
[2021-05-26] MEDS ORDERED: ROPIVACAINE 5 MG/ML 30 ML VIAL ONE (12:44)
[2021-05-26] MEDS ORDERED: PROPOFOL 10 MG/ML 20 ML VIAL IV ONE (12:44)
[2021-05-26] MEDS ORDERED: KETAMINE 10 MG/ML 20 ML VIAL ONE (12:44)
[2021-05-26] MEDS ORDERED: SODIUM CHLORIDE 0.9% 100 ML BAG ONE (12:44)
[2021-05-26] MEDS ORDERED: SODIUM CHLORIDE 0.9% (PF) 10 ML VIAL ONE (12:44)
--- NOTE | 2021-05-26 13:10 | P.ANPRN ---
Procedure Note - Anesthesia - Nerve Block Performed Left Adductor Canal Single Time Out Performed: Yes (115) Date of Procedure: 05/26/21 Procedure Start Time: 12:00 Procedure Stop Time: 12:05 Location of Patient: PreOp Indication: Acute Post-Operative Pain, Requested by Surgeon Specifically requested for management of pain by DrChastity: Perry Rosales Sedation Type: Sedate with meaningful contact maintained Preparation: Sterile Prep, Sterile Dressing Position: Supine Catheter Depth at Skin (cm): 7 Catheter: Indwelling Needle Types: Pajunk Needle Gauge: 21 Ultrasound used to visualize needle placement: Yes Ultrasound used to observe medication spread: Yes Injectate: 0.5% Ropivacaine (see comment for volume) (15cc + 5cc nacl pf) Blood Aspirated: No Pain Paresthesia on Injection Noted: No Resistance on Injection: Normal Image Stored and Saved: Yes Events: Uneventful and Well Tolerated Left iPack Single Time Out Performed: Yes (115) Date of Procedure: 05/26/21 Procedure Start Time: 12:06 Procedure Stop Time: 12:09 Location of Patient: PreOp Indication: Acute Post-Operative Pain, Requested by Surgeon Specifically requested for management of pain by DrChastity: Perry Rosales Sedation Type: Sedate with meaningful contact maintained Preparation: Sterile Prep Position: Supine Catheter: None Needle Types: Pajunk Needle Gauge: 21 Ultrasound used to visualize needle placement: Yes Ultrasound used to observe medication spread: Yes Injectate: 0.5% Ropivacaine (see comment for volume) (15cc + nacl pf 5cc) Blood Aspirated: No Pain Paresthesia on Injection Noted: No Resistance on Injection: Normal Image Stored and Saved: Yes Events: Uneventful and Well Tolerated
[2021-05-26] MEDS ORDERED: HYDROmorphone 0.5 MG/0.5 ML SYRINGE IVP PRN (14:29)
[2021-05-26] MEDS ORDERED: NALOXONE 0.4 MG/ML 1 ML VIAL IV PRN (14:29)
[2021-05-26] MEDS ORDERED: HYDROmorphone 0.2 MG/1 ML SYRINGE IVP PRN (14:29)
[2021-05-26] MEDS ORDERED: ONDANSETRON 4 MG/2 ML VIAL IVP PRN (14:29)
--- NOTE | 2021-05-26 14:29 | P.OP ---
Date of Procedure: 05/26/21 Preoperative Diagnosis: Left knee osteoarthritis Postoperative Diagnosis: Left knee osteoarthritis Procedure(s) Performed: Left total knee arthroplasty Implants: 1. Depuy attune size 5 narrow left cruciate retaining cemented femur 2. Depuy attune size 5 fixed bearing cemented tibial baseplate 3. Depuy attune size 5 fixed bearing cruciate retaining 7 mm polyethylene tibial insert 4. Depuy attune 38 mm all polyethylene cemented patella Anesthesia: regional (Adductor canal catheter, Ipack block), spinal Surgeon: Perry Rosales Oceanographer Geological #1: Yonathan Solares Estimated Blood Loss (ml): 45 Pathology: other (Bone) Condition: stable Disposition: PACU Indications for Procedure: 86-year-old patient seen with symptomatic left knee osteoarthritis. After treatment options were discussed, she elected to proceed with total knee arthroplasty. Operative Findings: See description of procedure Description of Procedure: Patient was taken to the operative suite after having an adductor canal catheter placed by the department of anesthesia as well as an Ipack block for postoperative pain management . Patient underwent a spinal anesthetic by the department of anesthesia. Patient was given preoperative IV intake antibiotics and TXA. A well-padded tourniquet was placed about [facility] lower extremity. The lower extremity was then prepped and draped in the normal sterile orthopedic fashion. The extremity was elevated, a tourniquet was insufflated to 300. A standard anterior incision was made sharply through skin. Dissection was taken down through the subcutaneous soft tissues down to the extensor mechanism. A medial arthrotomy was performed, patella was everted and knee was flexed. There was advanced osteoarthritis noted. I introduced my distal intramedullary femoral drill. I then introduced the distal femoral cutting jig. Yonathan MOSQUERA secured the cutting jig with 2 pins. I held retractors in position while Yonathan MOSQUERA performed the distal femoral resection through the guide area we now removed her distal femoral cutting guide. We now placed our 4-in-1 femoral cutting block and positioned and it was secured with 2 pins by Yonathan MOSQUERA while I held the block in position. The distal femoral finishing was now completed. A proximal tibial cutting guide was positioned. I held the guide in the appropriate position with both hands while Yonathan MOSQUERA inserted stabilizing pins into the guide. Proximal tibial cut was made. We now placed a trial femoral component into position, along with an appropriate size tibial tray and insert. We now took the knee through range of motion and had full extension good flexion and good overall soft tissue balance noted. The patella was everted and stabilized with 2 towel clips held by Yonathan MOSQUERA while I performed a flush with patellar quad tendon utilizing a fresh sawblade. We templated the patella, appropriate drill holes were made. An appropriate trial patella was positioned, knee was taken through full range of motion with the patella tracking very nicely. The trial patella was removed. Drill holes were made through the femoral component. All trial components were removed after m arking off the appropriate rotation of the tibia. Retractors were now positioned along the proximal tibia. An appropriate keel punch was made with the appropriate size tibial guide by myself on Yonathan MOSQUERA assisted by holding retractors. At this point appropriate size implants were chosen and opened. The joint was irrigated copiously with pulse lavage mechanical irrigation. The posterior capsule was infiltrated with local analgesic. The wound was irrigated with pulse lavage mechanical irrigation. We mixed antibiotic methylmethacrylate. We placed the knee into flexion. We placed mul tiple retractors assisted by Yonathan MOSQUERA to expose the proximal tibia. Once the methyl methacrylate was ready, the tibial component was cemented into place removing any excess methylmethacrylate form by both myself and Yonathan MOSQUERA. The femoral component was cemented into place removing the removing any excess methylmethacrylate performed by both myself and Yonathan MOSQUERA. We then inserted the appropriate size polyethylene tibial insert. We made sure that it was locked into position. We took the knee into full extension, and then back in a flexion making sure we had removed any excess methylmethacrylate. The patellar component was then cemented down and secured with clamp. Excess methylmethacrylate removed. We kept the knee in full extension, patellar clamp in position until methylmethacrylate had hardened. Once it had hardened the patellar clamp was removed. The knee was taken through full range of motion. The patella tracked nicely. There was good soft tissue balancing. The tourniquet was now released. Additional hemostasis was achieved via electrocautery. A second gram of TXA was given. The wound again was irrigated with pulse lavage mechanical irrigation. The superficial soft tissues were infiltrated local analgesic. The extensor mechanism was repaired with Vicryl. We checked the repair with range of motion and it was stable. The subcutaneous soft tissues were repaired with Vicryl in layers. The skin was approximated with pernio/Dermabond. Sterile dressings were applied followed by loose web roll and Michael bandage. The patient was transferred to a bed, and taken to recovery in stable and satisfactory condition. Yonathan MOSQUERA assisted with this complex procedure.
[2021-05-26 14:55] LABS: Glucose,Whole Blood 134 mg/dL (75-99)
[2021-05-26] MEDS: SODIUM CHLORIDE 0.9% 1,000 ML IV SCH ×2 (15:44→16:38)
--- NOTE | 2021-05-26 15:46 | XR ---
EXAMINATION TYPE: XR knee limited LT DATE OF EXAM: 05/26/2021 COMPARISON: None HISTORY: Postop knee TECHNIQUE: Left knee is examined in 2 views FINDINGS: Tibiofemoral components in place. No acute fracture is evident. Soft tissue postsurgical ch anges are evident. IMPRESSION: 1. No acute fracture post left knee replacement.
[2021-05-26 16:32] LABS: Glucose,Whole Blood 154 mg/dL (75-99)
[2021-05-26] MEDS: HYDROmorphone 0.5 MG/0.5 ML SYRINGE IVP PRN ×2 (16:36→20:12)
[2021-05-26] MEDS: SENNOSIDES-DOCUSATE SODIUM 1 EACH TAB PO SCH (20:02)
[2021-05-26 20:57] LABS: Glucose,Whole Blood 236 mg/dL (75-99)
[2021-05-26] MEDS: HYDROcodone/APAP 5-325MG 1 EACH TAB PO PRN (23:30)
[2021-05-27] MEDS: ENOXAPARIN 30 MG/0.3 ML SYRINGE SQ SCH ×2 (03:08→15:05)
[2021-05-27] MEDS: HYDROmorphone 0.5 MG/0.5 ML SYRINGE IVP PRN ×3 (04:47→14:20)
--- NOTE | 2021-05-27 06:02 | P.CONS ---
History of Present Illness - Reason for Consult Consult date: 05/26/21 medical management Requesting physician: Perry Rosales - Chief Complaint Left knee osteoarthritis - History of Present Illness 86-year-old female with diabetes mellitus hypertension Patient comes in for scheduled left total knee arthroplasty patient tolerated procedure well however she is currently having difficulty walking she went to the bathroom already she's tolerated by mouth intake she has urinated with no complications. She denies any observed immediate postoperative complications. She denies any chest pain trouble breathing abdominal pain. Denies any nausea vomiting Pain is well tolerated Review of Systems Pertinent positives as noted in HPI. All other systems were reviewed and are negative Past Medical History Past Medical History: Cancer, Diabetes Mellitus, Eye Disorder, GERD/Reflux, Hypertension, Osteoarthritis (OA) Additional Past Medical History / Comment(s): herminia knee pain,torn meniscus rt knee,hx 2006 R breast cancer with lumpectomy/radiation, NIDDM type II, neuropathy bilateral hands/feet, past hx anemia, occasional low back pain, b ilateral glaucoma History of Any Multi-Drug Resistant Organisms: None Reported Past Surgical History: Back Surgery, Breast Surgery, Cholecystectomy, H ysterectomy Additional Past Surgical History / Comment(s): R breast lumpectomy, D&C, low back surgery x2 including caging, EGD, colonoscopy, surgery for kidney stones,sinus surgery, OOPHERECTOMY- BILATERAL Past Anesthesia/Blood Transfusion Reactions: No Reported Reaction, Motion Sickness Additional Past Anesthesia/Blood Transfusion Reaction / Comm: Pt has received blood in past without reaction. Smoking Status: Never smoker - Past Family History Father Family Medical History: No Reported History Additional Family Medical History / Comment(s): Father in a hunting accident Mother Family Medical History: Cancer Additional Family Medical History / Comment(s): Leukemia Medications and Allergies Home Medications Medication Instructions Recorded Confirmed Type Aspirin [[place] Aspirin EC] 81 mg PO DAILY 12/06/18 05/26/21 History Cholecalciferol (Vitamin D3) 2,000 unit PO DAILY 12/06/18 05/26/21 History [Vitamin D3] Glimepiride [Amaryl] 0.5 mg PO DAILY 12/06/18 05/26/21 History Latanoprost [Xalatan 0.005%] 1 drop BOTH EYES HS 12/06/18 05/26/21 History Loperamide HCl [Imodium A-D] 2 mg PO BID 12/06/18 05/26/21 History Quinapril HCl [Accupril] 20 mg PO BID 12/06/18 05/26/21 History Timolol 0.5% Ophth Soln [Timoptic 1 drop BOTH EYES BID 12/06/18 05/26/21 History 0.5% Ophth Soln] metFORMIN HCL [Glucophage] 1,000 mg PO PC-SUPPER 12/06/18 05/26/21 History metFORMIN HCL [Glucophage] 500 mg PO DAILY 12/06/18 05/26/21 History atenoloL [Tenormin] 50 mg PO QAM 03/23/19 05/26/21 History Furosemide [Lasix] 20 mg PO MOWEFR 03/27/19 05/26/21 History Ascorbic Acid [Vitamin C] 1,000 mg PO DAILY 01/22/21 05/26/21 History Cetirizine HCl [Zyrtec] 5 mg PO DAILY 01/22/21 05/26/21 History Escitalopram Oxalate [Lexapro] 5 mg PO QAM 01/22/21 05/26/21 History Melatonin 5 mg PO HS 01/22/21 05/26/21 History Omeprazole [PriLOSEC] 20 mg PO AC-BRKFST 01/22/21 05/26/21 History Potassium Chloride ER [K-Dur 10] 10 meq PO MOWEFR 01/22/21 05/26/21 History Semaglutide [Ozempic] 0.5 mg SQ WE 05/22/21 05/26/21 History Allergies Allergy/AdvReac Type Severity Reaction Status Date / Time atorvastatin [From Lipitor] Allergy muscle pain Verified 05/26/21 11:17 rosuvastatin [From Crestor] Allergy muscle pain Verified 05/26/21 11:17 sulfamethoxazole Allergy Nausea & Verified 05/26/21 11:17 [From Bactrim] Vomiting trimethoprim [From Bactrim] Allergy Nausea & Verified 05/26/21 11:17 Vomiting Physical Exam Vitals: Vital Signs Temp Pulse Resp BP Pulse Ox 05/27/21 02:00 97.6 F 71 119/69 97 05/26/21 20:00 97.4 F L 70 15 146/76 96 05/26/21 16:15 66 171/71 98 05/26/21 16:00 65 188/81 96 05/26/21 15:45 97.4 F L 68 16 179/77 95 05/26/21 15:15 63 14 177/77 100 05/26/21 15:00 64 14 155/74 100 05/26/21 14:48 96.8 F L 67 14 184/77 95 05/26/21 12:19 61 15 129/59 98 05/26/21 11:21 98.8 F 71 17 186/84 96 Intake and Output 05/26/21 05/26/21 05/27/21 14:59 22:59 06:59 Intake Total 550 320 Output Total 45 Balance 505 320 Intake: IV 550 Oral 320 Output: Estimated Blood Loss 45 Other: # Voids 1 Weight 73.028 kg Constitutional: No acute distress, conversant, pleasant Eyes: Anicteric sclerae, moist conjunctiva, Pupils equal round reactive to light ENMT: NC/AT Oropharynx clear, no erythema, or exudates Neck: Supple, FROM, no masses, or JVD No carotid bruits No thyromegaly Lungs: Clear to auscultation Clear to percussion Normal respiratory effort, no accessory muscle use Cardiovascular: Heart regular in rate and rhythm, No murmurs, gallops, or rubs No peripheral edema Abdominal: Soft Nontender, no guarding, rebound or rigidity Abdomen moving with respiration Normoactive bowel sounds No hepatomegaly, No splenomegaly No palpable mass No abdominal wall hernia noted Skin: Normal temperature, tone, texture, turgor No induration No subcutaneous nodules No rash, lesions No ulcers Extremities: No digital cyanosis No clubbing Pedal pulses intact and symmetrical Radial pulses intact and symmetrical No calf tenderness Psychiatric: Alert and oriented to person, place and time Appropriate affect fair judgement Neuro Muscles Strength 4/5 in bilateral upper and right lower extremity. left lower extremity limited exam due to surgery Sensation to light touch grossly present throughout Cranial nerves II-XII grossly intact Lymphatics: no palpable cervical or supraclavicular , or inguinal lymph nodes Results Labs: Abnormal Lab Results - Last 24 Hours (Table) 05/26/21 05/26/21 05/26/21 Range/Units 14:53 16:28 20:55 POC Glucose (mg/dL) 134 H 154 H 236 H (75-99) mg/dL Assessment and Plan Assessment: Left knee osteoarthritis status post left total knee arthroplasty postoperative day 0 Postoperative care per orthopedic Currently on Lovenox twice a day subcu Diabetes mellitus Insulin sliding scale Hypertension Resume atenolol Supportive care Follow-up renal function and hemoglobin level Thank you for allowing us to participate in the care of this patient. Do not hesitate to contact us with questions. Someone can be reached from the [facility] [place] hospitalist group at all hours of the day at [phone].
[2021-05-27 07:14] LABS: Glucose,Whole Blood 154 mg/dL (75-99)
[2021-05-27] MEDS: INSULIN ASPART (NovoLOG) 100 UNIT/ML VIAL SQ SCH ×4 (07:38→21:06)
[2021-05-27] MEDS: PANTOPRAZOLE 40 MG TABLET PO SCH (07:38)
[2021-05-27] MEDS: LACTATED RINGERS 1,000 ML IV SCH (08:22)
[2021-05-27] MEDS: HYDROcodone/APAP 5-325MG 1 EACH TAB PO PRN ×2 (08:30→15:01)
--- NOTE | 2021-05-27 08:31 | P.PN ---
Progress Note - Text The patient is status post[ left] adductor canal catheter placement. The catheter was placed for postoperative pain control, status post total [left ] arthroplasty. Ropivacaine 0.2% is infusing at[ 8] mLs per hour. The patient has no complaints of[ left] lower extremity numbness or weakness. Patient's VAS score is[0-1-10 at rest. 4-5 with movement. Assessment: Patient's adductor canal catheter is in place and working appropriately. Plan: continue infusion and adjust it as needed.
[2021-05-27] MEDS: ESCITALOPRAM 5 MG TAB PO SCH (09:03)
[2021-05-27] MEDS: atenoloL 50 MG TAB PO SCH (09:03)
[2021-05-27 09:08] LABS: Basophils # (A) 0.01 X 10*3/uL (0.00-0.10); Basophils % (A) 0.1 %; Eosinophils # (A) 0 X 10*3/uL (0.04-0.35); Eosinophils % (A) 0 %; HCT 35.4 % (37.2-46.3); HGB 10.3 g/dL (12.0-15.0); Lymphocytes # (A) 0.94 X 10*3/uL (0.90-5.00); Lymphocytes % (A) 8.6 %; MCH 26.7 pg (27.0-32.0); MCHC 29.1 g/dL (32.0-37.0); MCV 91.7 fL (80.0-97.0); Mean Platelet Volume 11.3 fL (9.5-12.2); Monocytes % (A) 8.2 %; Neutrophils # (A) 9.06 X 10*3/uL (1.80-7.70); Neutrophils % (A) 82.5 %; Platelet Count 196 X 10*3/uL (140-440); RBC 3.86 X 10*6/uL (4.10-5.20); RDW 14.6 % (11.5-14.5); WBC 10.98 X 10*3/uL (4.50-10.00)
[2021-05-27 10:55] LABS: Glucose,Whole Blood 154 mg/dL (75-99)
[2021-05-27] MEDS: SODIUM CHLORIDE 0.9% 1,000 ML IV SCH (11:18)
[2021-05-27 12:11] LABS: African American GFR (CKD) 72.5 (60.0-200.0); Anion Gap 13.6 mmol/L (4.00-12.00); BUN/Creat Ratio 27.4 Ratio (12.00-20.00); Blood Urea Nitrogen 23.4 mg/dL (9.0-27.0); Calcium 8.2 mg/dL (8.7-10.3); Carbon Dioxide 23.3 mmol/L (21.6-31.8); Non-African American GFR(CKD) 62.6 (60.0-200.0); Potassium 4.8 mmol/L (3.5-5.5)
--- NOTE | 2021-05-27 12:51 | P.PN ---
Subjective Progress Note Date: 05/27/21 Principal diagnosis: Left knee osteoarthritis Patient seen at bedside this morning resting complaint sitting up in chair. Patient says she is having some knee pain mostly located front of the knee. Patient says she did try to get up with therapy this morning was able to get up using her walker to the bathroom and back. Patient feels that she should wait 1 more day before going to rehab. Patient does say she has a walker at home. Patient says her does have some heart issues she is looking at going to rehab for a little bit before going home. Patient says she has not had bowel movement yet, however, she says she has passed gas. Patient denies chest pain, fever, shortness of breath, nausea, vomiting, change in vision, loss of bowel/bladder control. Objective - Vital Signs Vital signs: Vital Signs Temp 97.5 F L 05/27/21 07:43 Pulse 72 05/27/21 07:43 Resp 16 05/27/21 07:43 BP 113/61 05/27/21 07:43 Pulse Ox 97 05/27/21 07:43 Intake & Output 05/26/21 05/27/21 05/27/21 18:59 06:59 18:59 Intake Total 670 200 200 Output Total 45 Balance 625 200 200 Weight 73.028 kg Intake: IV 550 Oral 120 200 200 Output: Estimated Blood Loss 45 Other: Voiding Method Incontinent # Voids 1 - Exam Left knee: Incision is clean, dry, and intact. The silver foam dressing is in good condition. There is minimal soft tissue swelling and ecchymosis surrounding the medial and lateral aspects of the incision. Calf is soft, no tenderness with palpation. Plantar flexion, dorsiflexion, EHL, FHL are intact. Sensory exam to light touch throughout the extremity is intact, dorsal pedis pulses 2+. - Labs CBC & Chem 7: 05/27/21 06:12 05/27/21 06:12 Labs: Abnormal Lab Results - Last 24 Hours (Table) 05/26/21 05/26/21 05/26/21 Range/Units 14:53 16:28 20:55 WBC (4.50-10.00) X 10*3/uL RBC (4.10-5.20) X 10*6/uL Hgb (12.0-15.0) g/dL Hct (37.2-46.3) % MCH (27.0-32.0) pg MCHC (32.0-37.0) g/dL RDW (11.5-14.5) % Immature Gran # (0.00-0.04) X 10*3/uL Neutrophils # (1.80-7.70) X 10*3/uL Eosinophils # (0.04-0.35) X 10*3/uL POC Glucose (mg/dL) 134 H 154 H 236 H (75-99) mg/dL 05/27/21 05/27/21 Range/Units 06:12 07:13 WBC 10.98 H (4.50-10.00) X 10*3/uL RBC 3.86 L (4.10-5.20) X 10*6/uL Hgb 10.3 L (12.0-15.0) g/dL Hct 35.4 L (37.2-46.3) % MCH 26.7 L (27.0-32.0) pg MCHC 29.1 L (32.0-37.0) g/dL RDW 14.6 H (11.5-14.5) % Immature Gran # 0.07 H (0.00-0.04) X 10*3/uL Neutrophils # 9.06 H (1.80-7.70) X 10*3/uL Eosinophils # 0 L (0.04-0.35) X 10*3/uL POC Glucose (mg/dL) 154 H (75-99) mg/dL Assessment and Plan Assessment: Left knee osteoarthritis Postoperative day #1 status post left total knee arthroplasty Plan: 1. Left knee osteoarthritis - left total knee arthroplasty performed yesterday, 05/26/2021. Patient stable at bedside today. Plan discharge to rehab tomorrow 2. Appreciate medical management 3. Pain management - [place] 5 mg/325 mg; IV meds only when needed; add tramadol 50 mg between doses [place] 4. DVT prophylaxis - Lovenox 5. GI prophylaxis - senna; Protonix 6. PT/OT - weightbearing as tolerated with walker for assistance 7. Encourage incentive spirometer use 8. Discharge planning - plan discharge to rehab tomorrow Time with Patient: Less than 30
--- NOTE | 2021-05-27 14:47 | P.PN ---
Subjective Progress Note Date: 05/27/21 Hospital course: Patient is a very pleasant 86-year-old female with a past medical history of type II [id number]-isjlusmrz diabetes mellitus, hypertension, and ost eoarthritis. She is currently admitted under orthopedic surgery team and is status post left total knee arthroplasty secondary to left knee osteoarthritis. We have been consulted to follow along throughout hospitalization to provide continued medical management. Physical exam: Patient seen and fully evaluated at the bedside this morning. She was sitting upright in chair in currently reports doing well. Patient states postoperative pain is controlled and she has been ambulating with walker to and from bathroom without reported difficulties. Patient states some continued pain and left knee, but states current pain management regimen is controlling. Patient denies experiencing any headache, lightheadedness, dizziness, chest pain, palpitations, shortness of breath, or experiencing any numbness/tingling/weakness in her extremities. Patient reports she has been eating well and has had no difficulties with urinary output. Morning postoperative hemoglobin stable at 10.3. Vital signs reviewed and stable. General: Nontoxic, no distress and appears stated age. Derm: Skin warm and dry, normal coloration for ethnicity. Head: Atraumatic, normocephalic and symmetric. Eyes: EOMs intact, no lid lag, and anicteric sclera Mouth: no lip lesions, mucus membranes moist Cardiovascular: regular rate and rhythm with normal S1S2, no murmur, positive posterior tibial pulses bilaterally, and cap refill < 2 seconds. Lungs: Respirations even, regular, and unlabored on room air. Lungs CTA bilaterally, no rhonchi, no rales, no wheezing, and no accessory muscle usage. Abdominal: soft, nontender to palpation, no guarding, no appreciable organome robb Ext: Movement and sensation intact. No gross muscle atrophy, no edema, no contractures. Postoperative dressing to left knee. Neuro: Speech clear, face symmetrical and CN II-XII grossly intact with no noted focal neuro deficits Psych: Alert and oriented to person, place, time, and situation. Appropriate and pleasant affect. Assessment and Plan of Care: Status post total left knee arthroplasty secondary to left knee osteoarthritis, postoperative day 1. -Management per primary admitting orthopedic surgery team. -DVT prophylaxis, pain management, weightbearing, PT OT as directed by orthopedic surgery team. -DVT prophylaxis currently with Lovenox. Hypertension Monitor vital signs and continue daily medication regimen with atenolol. [id number] diabetes mellitus type 2 -Hold Glucophage and glimepiride and place patient on glycemic protocol with NovoLog sliding scale. Thank you for allowing us to participate in the care of this pleasant patient. Do not hesitate to contact us with questions. Someone can be reached from the [facility] hospitalist group all hours of the day at [phone] or via perfect serve. Objective - Vital Signs Vital signs: Vital Signs Temp 97.6 F 05/27/21 02:00 Pulse 71 05/27/21 02:00 Resp 15 05/26/21 20:00 BP 119/69 05/27/21 02:00 Pulse Ox 97 05/27/21 02:00 Intake & Output 05/26/21 05/27/21 05/27/21 18:59 06:59 18:59 Intake Total 670 200 Output Total 45 Balance 625 200 Weight 73.028 kg Intake: IV 550 Oral 120 200 Output: Estimated Blood Loss 45 Other: # Voids 1 - Labs CBC & Chem 7: 05/27/21 06:12 05/27/21 06:12 Labs: Abnormal Lab Results - Last 24 Hours (Table) 05/26/21 05/26/21 05/26/21 Range/Units 14:53 16:28 20:55 POC Glucose (mg/dL) 134 H 154 H 236 H (75-99) mg/dL 05/27/21 Range/Units 07:13 POC Glucose (mg/dL) 154 H (75-99) mg/dL
[2021-05-27 17:05] LABS: Glucose,Whole Blood 185 mg/dL (75-99)
[2021-05-27 19:37] VITALS: RESP 16
[2021-05-27] MEDS: lisinopriL 20 MG TAB PO SCH (19:40)
[2021-05-27] MEDS: traMADol 50 MG TAB PO SCH (19:40)
[2021-05-27] MEDS: SENNOSIDES-DOCUSATE SODIUM 1 EACH TAB PO SCH (19:40)
[2021-05-27 21:02] LABS: Glucose,Whole Blood 249 mg/dL (75-99)
[2021-05-27] MEDS: MELATONIN 5 MG TABLET PO SCH (21:05)
[2021-05-27] MEDS: TIMOLOL 0.5% OPHTH DROPS 5 ML BTL BOTH EYES SCH (21:11)
[2021-05-27] MEDS: LATANOPROST 0.005% OPHTH DROPS 2.5 ML BTL BOTH EYES SCH (21:24)
[2021-05-28] MEDS: HYDROcodone/APAP 5-325MG 1 EACH TAB PO PRN ×3 (03:34→19:30)
[2021-05-28] MEDS: ENOXAPARIN 30 MG/0.3 ML SYRINGE SQ SCH ×2 (03:35→17:21)
[2021-05-28 07:09] LABS: Glucose,Whole Blood 191 mg/dL (75-99)
[2021-05-28] MEDS: lisinopriL 20 MG TAB PO SCH ×2 (08:14→19:31)
[2021-05-28] MEDS: atenoloL 50 MG TAB PO SCH (08:14)
[2021-05-28] MEDS: traMADol 50 MG TAB PO SCH (08:18)
[2021-05-28] MEDS: INSULIN ASPART (NovoLOG) 100 UNIT/ML VIAL SQ SCH ×4 (08:20→21:43)
[2021-05-28] MEDS: CHOLECALCIFEROL 25 MCG (1000 IU) TABLET PO SCH (08:21)
[2021-05-28] MEDS: LORATADINE 10 MG TAB PO SCH (08:21)
[2021-05-28] MEDS: ASCORBIC ACID 500 MG TAB PO SCH (08:22)
[2021-05-28] MEDS: PANTOPRAZOLE 40 MG TABLET PO SCH (08:22)
[2021-05-28] MEDS: TIMOLOL 0.5% OPHTH DROPS 5 ML BTL BOTH EYES SCH ×2 (08:22→19:32)
[2021-05-28] MEDS: ESCITALOPRAM 5 MG TAB PO SCH (08:23)
--- NOTE | 2021-05-28 11:36 | P.PN ---
Subjective Progress Note Date: 05/28/21 Principal diagnosis: Left knee osteoarthritis Patient was seen up with physical therapy this morning using walker. Patient did use very small steps shuffling along the room. Patient says she did feel a little bit unsteady while walking around the room. However she says she is feeling better walking today versus yesterday. Patient also mentions she is feeling pretty tired this morning. Patient states her pain is under better control. Patient says she has used incentive spirometer. Patient says she has not had bowel movement yet, however, she says she has passed gas. Patient denies chest pain, fever, shortness of breath, nausea, vomiting, change in vision, loss of bowel/bladder control. Objective - Vital Signs Vital signs: Vital Signs Temp 97.7 F 05/28/21 08:00 Pulse 68 05/28/21 08:00 Resp 16 05/28/21 08:00 BP 131/72 05/28/21 08:00 Pulse Ox 98 05/28/21 08:00 Intake & Output 05/27/21 05/28/21 05/28/21 18:59 06:59 18:59 Intake Total 500 Balance 500 Intake: Oral 500 Other: Voiding Method Incontinent Incontinent Bedside Commode # Voids 6 3 1 # Bowel Movements 1 - Labs CBC & Chem 7: 05/27/21 06:12 05/27/21 06:12 Labs: Abnormal Lab Results - Last 24 Hours (Table) 05/27/21 05/27/21 05/27/21 Range/Units 06:12 17:03 20:58 Anion Gap 13.60 H (4.00-12.00) mmol/L BUN/Creatinine Ratio 27.40 H (12.00-20.00) Ratio Glucose 148 H (70-110) mg/dL POC Glucose (mg/dL) 185 H 249 H (75-99) mg/dL Calcium 8.2 L (8.7-10.3) mg/dL 05/28/21 Range/Units 07:08 Anion Gap (4.00-12.00) mmol/L BUN/Creatinine Ratio (12.00-20.00) Ratio Glucose (70-110) mg/dL POC Glucose (mg/dL) 191 H (75-99) mg/dL Calcium (8.7-10.3) mg/dL Assessment and Plan Assessment: Left knee osteoarthritis Postoperative day #2 status post left total knee arthroplasty Plan: 1. Left knee osteoarthritis - left total knee arthroplasty performed 05/26/2021. Patient stable at bedside today. Plan discharge to rehab tomorrow, 05/29/2021 2. Appreciate medical management 3. Pain management - [place] 5 mg/325 mg; d/c Tramadol, d/c Dilaudid 0.5 mg IVP q3h and Dilaudid 0.2 mg IVP q3h 4. DVT prophylaxis - Lovenox 5. GI prophylaxis - senna; Protonix 6. PT/OT - weightbearing as tolerated with walker for assistance 7. Encourage incentive spirometer use 8. Discharge planning - plan discharge to rehab tomorrow, 05/29/2021 Time with Patient: Less than 30
[2021-05-28 11:44] LABS: Glucose,Whole Blood 213 mg/dL (75-99)
--- NOTE | 2021-05-28 11:45 | P.PN ---
Subjective Progress Note Date: 05/28/21 Hospital course: Patient is a very pleasant 86-year-old female with a past medical history of type II yhd-vpsdwhh-tqprfzkno diabetes mellitus, hypertension, and ost eoarthritis. She is currently admitted under orthopedic surgery team and is status post left total knee arthroplasty secondary to left knee osteoarthritis. We have been consulted to follow along throughout hospitalization to provide continued medical management. Physical exam: Patient seen and fully evaluated at the bedside this morning. She was resting comfortably in bed and reports feeling very tired this morning. She states her postoperative pain is controlled and denies having any nausea or vomiting. Patient has been tolerating oral intake and denies any difficulties with the restroom. Vital signs unremarkable. Patient denies having any headache, lightheadedness, dizziness, chest pain, palpitations, shortness of breath, or experiencing any numbness/tingling/weakness in her extremities. Vital signs reviewed and stable. General: Nontoxic, no distress and appears stated age. Derm: Skin warm and dry, normal coloration for ethnicity. Head: Atraumatic, normocephalic and symmetric. Eyes: EOMs intact, no lid lag, and anicteric sclera Mouth: no lip lesions, mucus membranes moist Cardiovascular: regular rate and rhythm with normal S1S2, no murmur, positive posterior tibial pulses bilaterally, and cap refill < 2 seconds. Lungs: Respirations even, regular, and unlabored on room air. Lungs CTA bilaterally, no rhonchi, no rales, no wheezing, and no accessory muscle usage. Abdominal: soft, nontender to palpation, no guarding, no appreciable organomegaly Ext: Movement and sensation intact. No gross muscle atrophy, no edema, no contractures. Postoperative dressing to left knee. Neuro: Speech clear, face symmetrical and CN II-XII grossly intact with no noted focal neuro deficits Psych: Alert and oriented to person, place, time, and situation. Appropriate and pleasant affect. Assessment and Plan of Care: Status post total left knee arthroplasty secondary to left knee osteoarthritis, postoperative day 1. -Management per primary admitting orthopedic surgery team. -DVT prophylaxis, pain management, weightbearing, PT OT as directed by orthopedic surgery team. -DVT prophylaxis currently with Lovenox. Hypertension Monitor vital signs and continue daily medication regimen with atenolol. Xzy-tidpjmd-yjjgimxfw diabetes mellitus type 2 -Hold Glucophage and glimepiride and place patient on glycemic protocol with NovoLog sliding scale. Thank you for allowing us to participate in the care of this pleasant patient. Do not hesitate to contact us with questions. Someone can be reached from the [facility] hospitalist group all hours of the day at [phone] or via perfect serve. Objective - Vital Signs Vital signs: Vital Signs Temp 97.6 F 05/28/21 02:28 Pulse 72 05/28/21 02:28 Resp 16 05/27/21 20:00 BP 133/77 05/28/21 02:28 Pulse Ox 96 05/28/21 02:28 Intake & Output 05/27/21 05/28/21 05/28/21 18:59 06:59 18:59 Intake Total 500 Balance 500 Intake: Oral 500 Other: Voiding Method Incontinent Incontinent # Voids 6 3 # Bowel Movements 1 - Labs CBC & Chem 7: 05/27/21 06:12 05/27/21 06:12 Labs: Abnormal Lab Results - Last 24 Hours (Table) 05/27/21 05/27/21 05/27/21 Range/Units 06:12 06:12 10:52 WBC 10.98 H (4.50-10.00) X 10*3/uL RBC 3.86 L (4.10-5.20) X 10*6/uL Hgb 10.3 L (12.0-15.0) g/dL Hct 35.4 L (37.2-46.3) % MCH 26.7 L (27.0-32.0) pg MCHC 29.1 L (32.0-37.0) g/dL RDW 14.6 H (11.5-14.5) % Immature Gran # 0.07 H (0.00-0.04) X 10*3/uL Neutrophils # 9.06 H (1.80-7.70) X 10*3/uL Eosinophils # 0 L (0.04-0.35) X 10*3/uL Anion Gap 13.60 H (4.00-12.00) mmol/L BUN/Creatinine Ratio 27.40 H (12.00-20.00) Ratio Glucose 148 H (70-110) mg/dL POC Glucose (mg/dL) 154 H (75-99) mg/dL Calcium 8.2 L (8.7-10.3) mg/dL 05/27/21 05/27/21 05/28/21 Range/Units 17:03 20:58 07:08 WBC (4.50-10.00) X 10*3/uL RBC (4.10-5.20) X 10*6/uL Hgb (12.0-15.0) g/dL Hct (37.2-46.3) % MCH (27.0-32.0) pg MCHC (32.0-37.0) g/dL RDW (11.5-14.5) % Immature Gran # (0.00-0.04) X 10*3/uL Neutrophils # (1.80-7.70) X 10*3/uL Eosinophils # (0.04-0.35) X 10*3/uL Anion Gap (4.00-12.00) mmol/L BUN/Creatinine Ratio (12.00-20.00) Ratio Glucose (70-110) mg/dL POC Glucose (mg/dL) 185 H 249 H 191 H (75-99) mg/dL Calcium (8.7-10.3) mg/dL
[2021-05-28 16:30] LABS: Glucose,Whole Blood 180 mg/dL (75-99)
[2021-05-28] MEDS: MELATONIN 5 MG TABLET PO SCH (19:31)
[2021-05-28] MEDS: LATANOPROST 0.005% OPHTH DROPS 2.5 ML BTL BOTH EYES SCH (19:31)
[2021-05-28] MEDS: SENNOSIDES-DOCUSATE SODIUM 1 EACH TAB PO SCH (19:31)
[2021-05-28 20:48] LABS: Glucose,Whole Blood 227 mg/dL (75-99)
[2021-05-28] MEDS: SODIUM CHLORIDE 0.9% 1,000 ML IV SCH (23:08)
[2021-05-29] MEDS: ENOXAPARIN 30 MG/0.3 ML SYRINGE SQ SCH (06:11)
[2021-05-29 07:11] LABS: Glucose,Whole Blood 171 mg/dL (75-99)
[2021-05-29] MEDS: LORATADINE 10 MG TAB PO SCH (07:46)
[2021-05-29] MEDS: ASCORBIC ACID 500 MG TAB PO SCH (07:46)
[2021-05-29] MEDS: INSULIN ASPART (NovoLOG) 100 UNIT/ML VIAL SQ SCH ×2 (07:46→12:11)
[2021-05-29] MEDS: lisinopriL 20 MG TAB PO SCH (07:48)
[2021-05-29] MEDS: atenoloL 50 MG TAB PO SCH (07:48)
[2021-05-29] MEDS: ESCITALOPRAM 5 MG TAB PO SCH (07:50)
[2021-05-29] MEDS: TIMOLOL 0.5% OPHTH DROPS 5 ML BTL BOTH EYES SCH (07:54)
[2021-05-29] MEDS: CHOLECALCIFEROL 25 MCG (1000 IU) TABLET PO SCH (08:03)
[2021-05-29] MEDS: PANTOPRAZOLE 40 MG TABLET PO SCH (08:03)
[2021-05-29 08:58] VITALS: BP 151/79; PULSE 69; TEMP 97.6
[2021-05-29] MEDS ORDERED: ENOXAPARIN 30 MG/0.3 ML SYRINGE SQ SCH (09:00)
[2021-05-29 09:12] LABS: Basophils # (A) 0.02 X 10*3/uL (0.00-0.10); Basophils % (A) 0.2 %; Eosinophils # (A) 0.16 X 10*3/uL (0.04-0.35); Eosinophils % (A) 1.5 %; HCT 32.2 % (37.2-46.3); HGB 9.3 g/dL (12.0-15.0); Lymphocytes # (A) 0.73 X 10*3/uL (0.90-5.00); Lymphocytes % (A) 6.7 %; MCH 27.3 pg (27.0-32.0); MCHC 28.9 g/dL (32.0-37.0); MCV 94.4 fL (80.0-97.0); Mean Platelet Volume 11.5 fL (9.5-12.2); Monocytes # (A) 0.99 X 10*3/uL (0.20-1.00); Monocytes % (A) 9.1 %; Neutrophils % (A) 81.8 %; Platelet Count 166 X 10*3/uL (140-440); RBC 3.41 X 10*6/uL (4.10-5.20); RDW 14.8 % (11.5-14.5); WBC 10.88 X 10*3/uL (4.50-10.00)
--- NOTE | 2021-05-29 09:29 | P.PN ---
Subjective Progress Note Date: 05/29/21 Principal diagnosis: Status post left total knee arthroplasty, acute blood loss anemia expected surgical Patient was evaluated today at bedside, she is resting in her hospital bed. Patient states that she does continue to be quite tired, her pain is better controlled with current medication she states. She has been up ambulating, she is requiring quite a bit of assistance. Patient continues to utilize a walker for ambulation. Currently she denies any headaches, lightheadedness, chest pain or shortness of breath. Objective - Vital Signs Vital signs: Vital Signs Temp 97.6 F 05/29/21 08:00 Pulse 69 05/29/21 08:00 Resp 16 05/29/21 08:00 BP 151/79 05/29/21 08:00 Pulse Ox 100 05/29/21 08:00 Intake & Output 05/28/21 05/29/21 05/29/21 18:59 06:59 18:59 Intake Total 236 236 Balance 236 236 Intake: Oral 236 236 Other: Voiding Method Bedside Commode Bedside Commode # Voids 1 1 # Bowel Movements 0 - Exam Right lower extremity: Incision is clean, dry, and intact. The foam dressing is in good condition. There is minimal soft tissue swelling and ecchymosis surrounding the medial and lateral aspects of the incision. Calf is soft, no tenderness with palpation. Plantar flexion, dorsiflexion, EHL, FHL are intact. Sensory exam to light touch throughout the extremity is intact, dorsal pedis pulses 2+. - Labs CBC & Chem 7: 05/29/21 05:52 05/27/21 06:12 Labs: Abnormal Lab Results - Last 24 Hours (Table) 05/28/21 05/28/21 05/28/21 Range/Units 11:43 16:28 20:46 WBC (4.50-10.00) X 10*3/uL RBC (4.10-5.20) X 10*6/uL Hgb (12.0-15.0) g/dL Hct (37.2-46.3) % MCHC (32.0-37.0) g/dL RDW (11.5-14.5) % Immature Gran # (0.00-0.04) X 10*3/uL Neutrophils # (1.80-7.70) X 10*3/uL Lymphocytes # (0.90-5.00) X 10*3/uL POC Glucose (mg/dL) 213 H 180 H 227 H (75-99) mg/dL 05/29/21 05/29/21 Range/Units 05:52 07:09 WBC 10.88 H (4.50-10.00) X 10*3/uL RBC 3.41 L (4.10-5.20) X 10*6/uL Hgb 9.3 L (12.0-15.0) g/dL Hct 32.2 L (37.2-46.3) % MCHC 28.9 L (32.0-37.0) g/dL RDW 14.8 H (11.5-14.5) % Immature Gran # 0.08 H (0.00-0.04) X 10*3/uL Neutrophils # 8.90 H (1.80-7.70) X 10*3/uL Lymphocytes # 0.73 L (0.90-5.00) X 10*3/uL POC Glucose (mg/dL) 171 H (75-99) mg/dL Assessment and Plan Assessment: Postoperative day #3 status post right total knee arthroplasty Acute blood loss anemia, expected surgical outcome Plan: Pain control, plan for discharge on [place] 5 mg/25 mg DVT prophylaxis, aspirin 81 mg twice a day for 30 days, we'll resume daily aspirin after that Ferrous sulfate 325 mg twice a day for a month for anemia Wound care instructions were discussed with patient, this including icing and elevating techniques Recommend use of walker with ambulation at all times, daily therapy at subacute rehab Medical recommendations Discharge planning: Patient will be discharged to rehab today Time with Patient: Less than 30
--- NOTE | 2021-05-29 09:34 | P.DS ---
Providers Date of admission: 05/27/21 14:51 Expected date of discharge: 05/29/21 Attending physician: Perry Rosales Consults: 05/26/21 14:29 Consult Physician Routine Consulting Provider: Braydon Ochoa Consult Reason/Comments: Medical management Do you want consulting provider notified?: Yes Primary care physician: Kristopher Lopes Hospital Course: Date of admission: 05/26/2021 Date of discharge: 05/29/2021 Admission diagnosis: Status post right total knee arthroplasty Discharge diagnosis: Same Attending physician: Dr. Rosales Surgical procedures: Right total knee arthroplasty Brief history: Patient is a 86-year-old female with a history of progressive primary right knee osteoarthritis. At this point patient has failed conservative treatment measures and has opted to proceed with a elective right total knee arthroplasty. Hospital course: Details of patient's surgery can be found in operative report. Patient tolerated the procedure well and was subsequently transported to orthopedic floor. Patient's orthopeidc and medical care was provided daily. Patient had daily laboratory tests performed for evaluation of overall blood counts. Patient had daily physical therapy to include strengthening range of motion as well as education with walker ambulation. Patient was treated with Lovenox for their postoperative DVT prophylaxis during their inpatient stay. Patient was noted to have a relatively uneventful postoperative course. Patient reported satisfactory pain control with oral pain medications by postoperative day 0. Patient showed satisfactory progress with physical therapy. Patient moved steadily through the program and had no difficulty meeting the goals by postoperative day 3. Given patient's otherwise satisfactory course and having met physical therapy goals, plan is to discharge patient rehab on postoperative day 3. Discharge condition/disposition: Patient will be discharged rehab in stable condition. Discharge medications: Instructions are given on resumption of patient's normal daily medications per primary care recommendation, in addition patient will be prescribed [place] 5 mg/325 mg, Colace 100 mg, aspirin 81 mg, ferrous sulfate 325 mg. Discharge instructions: 1. Wound care and infection precautions, [keep incision dry and covered while showering], no lotions, creams, moisturizers. No soaking, tubs, pools, hottubs. Do not scrub over the incision. 2. Weight-bear [as tolerated] with walker / cane until follow-up. 3. Ice and elevate when necessary. Do not exceed 20 minutes per hour with ice pack. 4. Utilize compression sleeve until seen at first follow up appointment. 5. Visiting nursing care. 6. Home physical therapy [including home CPM]. 7. Pain meds and anticoagulants per prescription. 8. Pain medication has potential to cause constipation. Increase oral fluid and fiber intake. Contact primary care provider if you have not had a bowel movement within 48 hours after discharge 9. No anti-inflammatory medication until discussed at first post operative visit, this including Motrin, Aleve, Mobic, Diclofenac. 10. Follow up in office at 2 weeks postop with Kristopher Lyon PA-C/Yonathan John 11. Follow up with your primary care doctor 7-10 days after discharge. 12. Contact [facility] with any questions, . Procedures: Right total knee arthroplasty Patient Condition at Discharge: Good Plan - Discharge Summary Discharge Rx Participant: No New Discharge Prescriptions: New Aspirin [Adult Low Dose Aspirin EC] 81 mg PO BID #60 tab Docusate [Colace] 100 mg PO DAILY #30 capsule Ferrous Sulfate [Iron (65 MG Elemental)] 325 mg PO BID #60 tab HYDROcodone/APAP 5-325MG [[place] 5-325] 1 tab PO Q6HR PRN #28 tab PRN Reason: Pain No Action Cholecalciferol (Vitamin D3) [Vitamin D3] 2,000 unit PO DAILY Timolol 0.5% Ophth Soln [Timoptic 0.5% Ophth Soln] 1 drop BOTH EYES BID metFORMIN HCL [Glucophage] 1,000 mg PO PC-SUPPER metFORMIN HCL [Glucophage] 500 mg PO DAILY Loperamide HCl [Imodium A-D] 2 mg PO BID Latanoprost [Xalatan 0.005%] 1 drop BOTH EYES HS Quinapril HCl [Accupril] 20 mg PO BID Glimepiride [Amaryl] 0.5 mg PO DAILY atenoloL [Tenormin] 50 mg PO QAM Furosemide [Lasix] 20 mg PO MOWEFR Omeprazole [PriLOSEC] 20 mg PO AC-BRKFST Ascorbic Acid [Vitamin C] 1,000 mg PO DAILY Melatonin 5 mg PO HS Potassium Chloride ER [K-Dur 10] 10 meq PO MOWEFR Escitalopram Oxalate [Lexapro] 5 mg PO QAM Cetirizine HCl [Zyrtec] 5 mg PO DAILY Semaglutide [Ozempic] 0.5 mg SQ WE Discharge Medication List Cholecalciferol (Vitamin D3) [Vitamin D3] 2,000 unit PO DAILY 12/06/18 [History] Glimepiride [Amaryl] 0.5 mg PO DAILY 12/06/18 [History] Latanoprost [Xalatan 0.005%] 1 drop BOTH EYES HS 12/06/18 [History] Loperamide HCl [Imodium A-D] 2 mg PO BID 12/06/18 [History] Quinapril HCl [Accupril] 20 mg PO BID 12/06/18 [History] Timolol 0.5% Ophth Soln [Timoptic 0.5% Ophth Soln] 1 drop BOTH EYES BID 12/06/18 [History] metFORMIN HCL [Glucophage] 1,000 mg PO PC-SUPPER 12/06/18 [History] metFORMIN HCL [Glucophage] 500 mg PO DAILY 12/06/18 [History] atenoloL [Tenormin] 50 mg PO QAM 03/23/19 [History] Furosemide [Lasix] 20 mg PO MOWEFR 03/27/19 [History] Ascorbic Acid [Vitamin C] 1,000 mg PO DAILY 01/22/21 [History] Cetirizine HCl [Zyrtec] 5 mg PO DAILY 01/22/21 [History] Escitalopram Oxalate [Lexapro] 5 mg PO QAM 01/22/21 [History] Melatonin 5 mg PO HS 01/22/21 [History] Omeprazole [PriLOSEC] 20 mg PO AC-BRKFST 01/22/21 [History] Potassium Chloride ER [K-Dur 10] 10 meq PO MOWEFR 01/22/21 [History] Semaglutide [Ozempic] 0.5 mg SQ WE 05/22/21 [History] Aspirin [Adult Low Dose Aspirin EC] 81 mg PO BID #60 tab 05/29/21 [Rx] Docusate [Colace] 100 mg PO DAILY #30 capsule 05/29/21 [Rx] Ferrous Sulfate [Iron (65 MG Elemental)] 325 mg PO BID #60 tab 05/29/21 [Rx] HYDROcodone/APAP 5-325MG [[place] 5-325] 1 tab PO Q6HR PRN #28 tab 05/29/21 [Rx] Follow up Appointment(s)/Referral(s): Sam Lyon PAC [PHYSICIAN S[employer]IOR [employer]ELOPER] - 06/13/21 11:10 am Kristopher Lopes MD [Primary Care Provider] - 1 Week Patient Instructions/Handouts: *Surgery [facility] - On-Q Pain Pump Discharge Instructions, Knee Replacement (DC) Activity/Diet/Wound Care/Special Instructions: *Discharging RN - Call Nancie Swingbed at [phone] and ask for the nurse's station to give report and estimated arrival time to the staff. Orthopedic Discharge Instructions: 1. Wound care and infection precautions, keep incision dry and covered while showering, no lotions, creams, moisturizers. No soaking, pools, hot tubs. Do not scrub over incision. 2. Weight-bear as tolerated with walker / cane until follow-up. 3. Ice and elevate when necessary. Do not exceed 20 minutes per hour with ice pack. 4. Utilize compression sleeve until seen at first follow up appointment. 5. Pain meds and anticoagulants per prescription. 6. Pain medication has potential to cause constipation. Increase oral fluid and fiber intake. Contact primary care provider if you have not had a bowel movement within 48 hours after discharge. 7. No anti-inflammatory medication until discussed at first post operative visit, this including Motrin, Aleve, Mobic, Diclofenac. 8. Follow up in office at 2 weeks postop with Kristopher Lyon PA-C/Yonathan Solares PA-C 9. Follow up with your primary care doctor 7-10 days after discharge. 10. Contact [facility] with any questions, . Wound care instructions: 1. Remove foam dressing on 06/02/2021 2. Please keep incision covered and dry while showering until seen at first postoperative visit Discharge Disposition: TRANSFER TO SNF/ECF
[2021-05-29 11:49] LABS: Glucose,Whole Blood 181 mg/dL (75-99)
--- NOTE | 2021-05-29 12:58 | P.PN ---
Subjective Progress Note Date: 05/29/21 Hospital course: Patient is a very pleasant 86-year-old female with a past medical history of type II hal-fjvwvje-cescriqxj diabetes mellitus, hypertension, and ost eoarthritis. She is currently admitted under orthopedic surgery team and is status post left total knee arthroplasty secondary to left knee osteoarthritis. We have been consulted to follow along throughout hospitalization to provide continued medical management. Physical exam: Patient seen and fully evaluated at the bedside this morning. She was ambulating in her room with walker working with PT/OT and doing well. Patient states her postoperative pain remains controlled and continues to deny having any other complaints including headache, lightheadedness, dizziness, chest pain, palpitations, shortness of breath, nausea, vomiting, or experiencing any numbness/tingling/weakness in her extremities. Vital signs unremarkable. SpO2 98% on room air. Morning labs reviewed and stable. Vital signs reviewed and stable. General: Nontoxic, no distress and appears stated age. Derm: Skin warm and dry, normal coloration for ethnicity. Head: Atraumatic, normocephalic and symmetric. Eyes: EOMs intact, no lid lag, and anicteric sclera Mouth: no lip lesions, mucus membranes moist Cardiovascular: regular rate and rhythm with normal S1S2, no murmur, positive posterior tibial pulses bilaterally, and cap refill < 2 seconds. Lungs: Respirations even, regular, and unlabored on room air. Lungs CTA bilaterally, no rhonchi, no rales, no wheezing, and no accessory muscle usage. Abdominal: soft, nontender to palpation, no guarding, no appreciable or ganomegaly Ext: Movement and sensation intact. No gross muscle atrophy, no edema, no contractures. Postoperative dressing to left knee. Neuro: Speech clear, face symmetrical and CN II-XII grossly intact with no noted focal neuro deficits Psych: Alert and oriented to person, place, time, and situation. Appropriate and pleasant affect. Assessment and Plan of Care: Status post total left knee arthroplasty secondary to left knee osteoarthritis, completed on 05/26/21 -Management per primary admitting orthopedic surgery team. -DVT prophylaxis, pain management, weightbearing, PT OT as directed by orthopedic surgery team. -DVT prophylaxis currently with Lovenox. Hypertension Monitor vital signs and continue daily medication regimen with atenolol. Snt-nzsubti-sbsxjchfm diabetes mellitus type 2 -Hold Glucophage and glimepiride and place patient on glycemic protocol with NovoLog sliding scale. Thank you for allowing us to participate in the care of this pleasant patient. Do not hesitate to contact us with questions. Someone can be reached from the [facility] hospitalist group all hours of the day at [phone] or via perfect serve. Objective - Vital Signs Vital signs: Vital Signs Temp 97.4 F L 05/29/21 01:49 Pulse 75 05/29/21 01:49 Resp 16 05/28/21 15:51 BP 130/55 05/29/21 01:49 Pulse Ox 98 05/29/21 06:29 Intake & Output 05/28/21 05/29/21 05/29/21 18:59 06:59 18:59 Intake Total 236 Balance 236 Intake: Oral 236 Other: Voiding Method Bedside Commode Bedside Commode # Voids 1 1 # Bowel Movements 0 - Labs CBC & Chem 7: 05/29/21 05:52 05/27/21 06:12 Labs: Abnormal Lab Results - Last 24 Hours (Table) 05/28/21 05/28/21 05/28/21 Range/Units 11:43 16:28 20:46 POC Glucose (mg/dL) 213 H 180 H 227 H (75-99) mg/dL 05/29/21 Range/Units 07:09 POC Glucose (mg/dL) 171 H (75-99) mg/dL
== END 2021-05-29 13:11 | disposition swing bed (61) | DRG 470 ==
LOC: OR 10:39 → 4SSUR 14:48 → OR 05-27 14:51
PROVIDERS: ADMIT Orthopaedic Surgery; ATTEND Orthopaedic Surgery
PROC: 0SRD0J9 Replacement of Left Knee Joint with Synthetic Substitute, Cemented, Open Approach (ICD-10-PCS; principal; 2021-05-26 12:30)
DX: M17.0 Bilateral primary osteoarthritis of knee (principal); D62 Acute posthemorrhagic anemia; E11.40 Type 2 diabetes mellitus with diabetic neuropathy, unspecified; Z20.822 Contact with and (suspected) exposure to COVID-19; I10 Essential (primary) hypertension; E78.5 Hyperlipidemia, unspecified; K21.9 Gastro-esophageal reflux disease without esophagitis; I25.10 Atherosclerotic heart disease of native coronary artery without angina pectoris; H40.9 Unspecified glaucoma; M54.50 Low back pain, unspecified; R32 Unspecified urinary incontinence; Z79.84 Long term (current) use of oral hypoglycemic drugs; Z79.899 Other long term (current) drug therapy; Z90.49 Acquired absence of other specified parts of digestive tract; Z90.710 Acquired absence of both cervix and uterus; Z87.19 Personal history of other diseases of the digestive system; Z87.42 Personal history of other diseases of the female genital tract; Z87.09 Personal history of other diseases of the respiratory system; Z85.3 Personal history of malignant neoplasm of breast; Z92.3 Personal history of irradiation; Z98.1 Arthrodesis status; Z90.722 Acquired absence of ovaries, bilateral; Z87.442 Personal history of urinary calculi; Z97.4 Presence of external hearing-aid; Z98.890 Other specified postprocedural states; Z88.2 Allergy status to sulfonamides; Z88.8 Allergy status to other drugs, medicaments and biological substances; Z80.6 Family history of leukemia
CPT/HCPCS: 64448; 64999; 76942; 80048; 85025; 87635; 88300

== ENCOUNTER 2023-02-20 20:45 | Inpatient (IN) | payer MEDICARE, BC ==
--- NOTE | 2023-02-20 21:24 | ED ---
Skin/Abscess/FB HPI - General Chief complaint: Skin/Abscess/Foreign Body Stated complaint: Feet pain Time Seen by Provider: 02/20/23 21:06 Source: family Mode of arrival: wheelchair Limitations: no limitations - History of Present Illness Initial comments: This patient is an 88-year-old woman who arrives here as a transfer from [facility]. The patient states she had gone there this afternoon to have evaluation for concerns about foot infection. She has history of diabetes and previous partial amputation of toe. The patient noticed that she has been feeling fatigued and that she has decreased energy going on for 2 or 3 days now. She has not noted fever or other systemic symptoms. She noticed that she has had some redness and swelling of both feet, the left first toe and the right second toe. She was evaluated at the other hospital and transferred here to have infectious disease consultation. Patient denies other symptoms of i nfection, no cough or dyspnea. No change in urination or bowel movements. She does note some bilateral leg edema right greater than left. Given dose of Zosyn at approximately 5 PM today and transferred here for further care. MD complaint: discoloration Onset/Timin -: days(s) Tetanus Up to Date: yes Location: LLE, RLE Severity: mild Quality: dull Consistency: constant Improves with: none Worsens with: none Associated symptoms: malaise Treatments Prior to Arrival: none - Related Data Home Medications Medication Instructions Recorded Confirmed Glimepiride [Amaryl] 1 mg PO DAILY 12/06/18 02/20/23 Latanoprost [Xalatan 0.005%] 1 drop BOTH EYES HS 12/06/18 02/20/23 Timolol 0.5% Ophth Soln [Timoptic 1 drop BOTH EYES BID 12/06/18 02/20/23 0.5% Ophth Soln] Ascorbic Acid [Vitamin C] 1,000 mg PO HS 01/22/21 02/20/23 Aspirin [Adult Low Dose Aspirin EC] 81 mg PO DAILY 02/20/23 02/20/23 Brinzolamide/Brimonidine Tart 1 drop BOTH EYES TID 02/20/23 02/20/23 [Simbrinza 1%-0.2% Eye Drops] Cholecalciferol [Vitamin D3 (25 50 mcg PO HS 02/20/23 02/20/23 Mcg = 1000 Iu)] Cholestyramine/Aspartame 4 gm PO TID-W/MEALS 02/20/23 02/20/23 [Cholestyramine Light Packet] Cranberry Fruit Concentrate [Azo 250 mg PO BID 02/20/23 02/20/23 Cranberry] Cyanocobalamin (Vitamin B-12) 5,000 mcg PO DAILY 02/20/23 02/20/23 [Vitamin B-12] Escitalopram Oxalate [Lexapro] 10 mg PO DAILY 02/20/23 02/20/23 Ferrous Sulfate [Iron (65 MG 325 mg PO DAILY 02/20/23 02/20/23 Elemental)] Fluticasone Nasal [place] [Flonase 1 spray EA NOSTRIL BID 02/20/23 02/20/23 Nasal [place]] Lactobacillus Acidophilus 1 cap PO HS 02/20/23 02/20/23 [Florajen Acidophilus] Omeprazole 20 mg PO DAILY 02/20/23 02/20/23 Pioglitazone [Actos] 15 mg PO DAILY 02/20/23 02/20/23 Turmeric Root Extract [Turmeric] 1,053 mg PO BID 02/20/23 02/20/23 atenoloL [Tenormin] 25 mg PO DAILY 02/20/23 02/20/23 lisinopriL [Zestril] 20 mg PO HS 02/20/23 02/20/23 Previous Rx's Medication Instructions Recorded Amoxic-Pot Clav 875-125Mg 1 tab PO BID 10 Days #20 tab 02/24/23 [Augmentin 875-125] Acetaminophen Tab [Tylenol] 650 mg PO Q6HR PRN tab 02/25/23 Albuterol Nebulized [Ventolin 2.5 mg INHALATION RT-Q6H PRN ml 02/25/23 Nebulized] Famotidine [Pepcid] 20 mg PO DAILY tab 02/25/23 Allergies Allergy/AdvReac Type Severity Reaction Status Date / Time atorvastatin [From Lipitor] Allergy muscle pain Verified 02/20/23 21:32 rosuvastatin [From Crestor] Allergy muscle pain Verified 02/20/23 21:32 sulfamethoxazole Allergy Nausea & Verified 02/20/23 21:32 [From Bactrim] Vomiting trimethoprim [From Bactrim] Allergy Nausea & Verified 02/20/23 21:32 Vomiting Review of Systems ROS Statement: Those systems with pertinent positive or pertinent negative responses have been documented in the HPI. ROS Other: All systems not noted in ROS Statement are negative. Constitutional: Reports: weakness. Denies: fever, chills Respiratory: Denies: cough, dyspnea Cardiovascular: Reports: edema. Denies: chest pain, palpitations, orthopnea Endocrine: Reports: fatigue Gastrointestinal: Denies: abdominal pain, vomiting, diarrhea Genitourinary: Denies: dysuria, frequency, hematuria Musculoskeletal: Denies: back pain Skin: Reports: change in color Neurological: Denies: headache, weakness, numbness Past Medical History Past Medical History: Cancer, Diabetes Mellitus, Eye Disorder, GERD/Reflux, Hypertension, Osteoarthritis (OA) Additional Past Medical History / Comment(s): herminia knee pain,torn meniscus rt knee,hx 2007 R breast cancer with lumpectomy/radiation, NIDDM type II, neuropathy bilateral hands/feet, past hx anemia, occasional low back pain, bilateral glaucoma History of Any Multi-Drug Resistant Organisms: None Reported Past Surgical History: Back Surgery, Breast Surgery, Cholecystectomy, Hysterectomy Additional Past Surgical History / Comment(s): R breast lumpectomy, D&C, low back surgery x2 including caging, EGD, colonoscopy, surgery for kidney stones,sinus surgery, OOPHERECTOMY- BILATERAL Past Anesthesia/Blood Transfusion Reactions: No Reported Reaction, Motion Sickness Additional Past Anesthesia/Blood Transfusion Reaction / Comment(s): Pt has received blood in past without reaction. Past Psychological History: No Psychological Hx Reported Smoking Status: Never smoker Past Alcohol Use History: Rare Past Drug Use History: None Reported - Past Family History Father Family Medical History: No Reported History Additional Family Medical History / Comment(s): Father in a hunting accident Mother Family Medical History: Cancer Additional Family Medical History / Comment(s): Leukemia General Exam Limitations: no limitations General appearance: alert, in no apparent distress Head exam: Present: atraumatic, normocephalic Eye exam: Present: normal appearance. Absent: scleral icterus, conjunctival i njection Neck exam: Present: normal inspection Respiratory exam: Present: rales (bilateral bases). Absent: respiratory distress, wheezes, rhonchi, stridor Cardiovascular Exam: Present: regular rate, normal rhythm, systolic murmur. Absent: diastolic murmur, rubs, gallop GI/Abdominal exam: Present: soft. Absent: distended, tenderness, guarding, rebound, rigid, mass Extremities exam: Present: full ROM, normal capillary refill, pedal edema (Right Greater than left). Absent: tenderness, calf tenderness Back exam: Present: normal inspection. Absent: CVA tenderness (R), CVA tenderness (L) Neurological exam: Present: alert Skin exam: Present: warm, dry, intact, normal color. Absent: rash Course Vital Signs 02/20/23 02/20/23 20:50 22:40 Temperature 98.4 F Pulse Rate 65 81 Respiratory 18 18 Rate Blood Pressure 139/59 O2 Sat by Pulse 96 93 L Oximetry Medical Decision Making - Medical Decision Making Was pt. sent in by a medical professional or institution (, PA, E MARKETING SPECIALIST, urgent care, hospital, or alf...) When possible be specific @ -Patient is transferred here from the outside hospital Did you speak to anyone other than the patient for history (EMS, parent, family, police, friend...)? What history was obtained from this source @ -[This was discussed with the transferring physician Did you review nursing and triage notes (agree or disagree)? Why? @ -[I reviewed and agree with nursing and triage notes] Were old charts reviewed (outside hosp., previous admission, EMS record, old EKG, old radiological studies, urgent care reports/EKG's, alf records)? Report findings @ -[No old charts were reviewed] Differential Diagnosis (chest pain, altered mental status, abdominal pain women, abdominal pain men, vaginal bleeding, weakness, fever, dyspnea, syncope, headache, dizziness, GI bleed, back pain, seizure, CVA, palpatations, mental health, musculoskeletal)? @ -[Differential diagnosis for the patient's foot erythema and swelling includes cellulitis, osteomyelitis, DVT, vasculitis, ALLERGIC reaction, amongst other conditions EKG interpreted by me (3pts min.). @ -[ X-rays interpreted by me (1pt min.). @ -[None done] CT interpreted by me (1pt min.). @ -[None done] U/S interpreted by me (1pt. min.). @ -[None done] What testing was considered but not performed or refused? (CT, X-rays, U/S, labs)? Why? @ -[None] What meds were considered but not given or refused? Why? @ -[None] Did you discuss the management of the patient with other professionals (professionals i.e. , PA, E MARKETING SPECIALIST, lab, RT, psych nurse, certified social workers in health care, single needle operator, teacher, staff air defense officer, case management manager)? Give summary @ -[Face was discussed with the transferring physician and also with the admitting physician Was smoking cessation discussed for >3mins.? @ -[No] Was critical care preformed (if so, how long)? @ -[No] Were there social determinants of health that impacted care today? How? (Homelessness, low income, unemployed, alcoholism, drug addiction, transportation, low edu. Level, literacy, decrease access to med. care, [place] [facility], rehab)? @ -[No] Was there de-escalation of care discussed even if they declined (Discuss DNR or withdrawal of care, Hospice)? DNR status @ -[No] What co-morbidities impacted this encounter? (DM, HTN, Smoking, COPD, CAD, Cancer, CVA, ARF, Chemo, Hep., AIDS, mental health diagnosis, sleep apnea, morbid obesity)? @ -[\Diabetes Was patient admitted / discharged? Hospital course, mention meds given and route, prescriptions, significant lab abnormalities, going to OR and other pertinent info. @ -[The patient is admitted to have IV antibiotics, the Zosyn was continued, the patient also have infectious disease and vascular surgery consult Undiagnosed new problem with uncertain prognosis? @ -[No] Drug Therapy requiring intensive monitoring for toxicity (Heparin, Nitro, Insulin, Cardizem)? @ -[No] Were any procedures done? @ -[No] Diagnosis/symptom? @ -[Bilateral diabetic foot infection History of peripheral vascular disease Acute, or Chronic, or Acute on Chronic? @ -[Acute on chronic Uncomplicated (without systemic symptoms) or Complicated (systemic symptoms)? @ -[Uncomplicated Side effects of treatment? @ -[No] Exacerbation, Progression, or Severe Exacerbation? @ -[No] Poses a threat to life or bodily function? How? (Chest pain, [place], [place], pneumonia, PE, COPD, DKA, ARF, appy, cholecystitis, CVA, Diverticulitis, Homicidal, Suicidal, threat to staff... and all critical care pts) @ -[Yes, diabetic foot infections can progress to osteomyelitis or sepsis, may also require debridement sometimes amputation - Lab Data Result diagrams: 02/23/23 05:18 02/23/23 05:18 Lab Results 02/21/23 02/21/23 02/21/23 Range/Units 05:53 11:52 16:54 WBC (4.50-10.00) X 10*3/uL RBC (4.10-5.20) X 10*6/uL Hgb (12.0-15.0) d/dL Hct (37.2-46.3) % MCV (80.0-97.0) FL MCH (27.0-32.0) pg MCHC (32.0-37.0) d/dL RDW (11.5-14.5) % Plt Count (140-440) X 10*3/uL MPV (9.5-12.2) FL Immature Gran % (Auto) % Absolute Nucleated RBC % Neutrophils % % Lymphocytes % % Monocytes % % Eosinophils % % Basophils % % Immature Gran # X 10*3/uL Neutrophils # (1.80-7.70) X 10*3/uL Lymphocytes # (0.90-5.00) X 10*3/uL Monocytes # (0.20-1.00) X 10*3/uL Eosinophils # (0.04-0.35) X 10*3/uL Basophils # (0.00-0.10) X 10*3/uL NRBC/100 WBC Diff (0.00-0.01) X 10*3/uL Sodium (135-145) mmol/L Potassium (3.5-5.5) mmol/L Chloride (96-109) mmol/L Carbon Dioxide (21.6-31.8) mmol/L Anion Gap (4.00-12.00) mmol/L BUN (9.0-27.0) mg/dL Creatinine (0.6-1.5) mg/dL Est GFR (CKD-EPI) (>=60) BUN/Creatinine Ratio (12.00-20.00) Ratio Glucose (70-110) mg/dL POC Glucose (mg/dL) 127 H 161 H 148 H (70-110) mg/dL POC Glu Char Conveyor Tender Cellar ID Violeta MonteKaren Natasha Calcium (8.7-10.3) mg/dL 02/21/23 02/22/23 02/22/23 Range/Units 20:11 05:34 05:34 WBC 10.98 H (4.50-10.00) X 10*3/uL RBC 3.60 L (4.10-5.20) X 10*6/uL Hgb 10.5 L (12.0-15.0) d/dL Hct 34.1 L (37.2-46.3) % MCV 94.7 (80.0-97.0) FL MCH 29.2 (27.0-32.0) pg MCHC 30.8 L (32.0-37.0) d/dL RDW 15.1 H (11.5-14.5) % Plt Count 213 (140-440) X 10*3/uL MPV 11.2 (9.5-12.2) FL Immature Gran % (Auto) 0.50 % Absolute Nucleated RBC 0 % Neutrophils % 80.1 % Lymphocytes % 8.2 % Monocytes % 8.2 % Eosinophils % 2.6 % Basophils % 0.4 % Immature Gran # 0.05 X 10*3/uL Neutrophils # 8.80 H (1.80-7.70) X 10*3/uL Lymphocytes # 0.90 (0.90-5.00) X 10*3/uL Monocytes # 0.90 (0.20-1.00) X 10*3/uL Eosinophils # 0.29 (0.04-0.35) X 10*3/uL Basophils # 0.04 (0.00-0.10) X 10*3/uL NRBC/100 WBC Diff 0 (0.00-0.01) X 10*3/uL Sodium 140 (135-145) mmol/L Potassium 4.0 (3.5-5.5) mmol/L Chloride 103 (96-109) mmol/L Carbon Dioxide 27.3 (21.6-31.8) mmol/L Anion Gap 9.70 (4.00-12.00) mmol/L BUN 13.8 (9.0-27.0) mg/dL Creatinine 0.8 (0.6-1.5) mg/dL Est GFR (CKD-EPI) 72 (>=60) BUN/Creatinine Ratio 17.25 (12.00-20.00) Ratio Glucose 123 H (70-110) mg/dL POC Glucose (mg/dL) 212 H (70-110) mg/dL POC Glu Char Conveyor Tender Cellar ID Violeta Monte Calcium 9.1 (8.7-10.3) mg/dL 02/22/23 02/22/23 Range/Units 06:10 11:37 WBC (4.50-10.00) X 10*3/uL RBC (4.10-5.20) X 10*6/uL Hgb (12.0-15.0) d/dL Hct (37.2-46.3) % MCV (80.0-97.0) FL MCH (27.0-32.0) pg MCHC (32.0-37.0) d/dL RDW (11.5-14.5) % Plt Count (140-440) X 10*3/uL MPV (9.5-12.2) FL Immature Gran % (Auto) % Absolute Nucleated RBC % Neutrophils % % Lymphocytes % % Monocytes % % Eosinophils % % Basophils % % Immature Gran # X 10*3/uL Neutrophils # (1.80-7.70) X 10*3/uL Lymphocytes # (0.90-5.00) X 10*3/uL Monocytes # (0.20-1.00) X 10*3/uL Eosinophils # (0.04-0.35) X 10*3/uL Basophils # (0.00-0.10) X 10*3/uL NRBC/100 WBC Diff (0.00-0.01) X 10*3/uL Sodium (135-145) mmol/L Potassium (3.5-5.5) mmol/L Chloride (96-109) mmol/L Carbon Dioxide (21.6-31.8) mmol/L Anion Gap (4.00-12.00) mmol/L BUN (9.0-27.0) mg/dL Creatinine (0.6-1.5) mg/dL Est GFR (CKD-EPI) (>=60) BUN/Creatinine Ratio (12.00-20.00) Ratio Glucose (70-110) mg/dL POC Glucose (mg/dL) 132 H 222 H (70-110) mg/dL POC Glu Char Conveyor Tender Cellar ID Roberto Oneil Allison Calcium (8.7-10.3) mg/dL Disposition Clinical Impression: Diabetic foot ulcer associated with diabetes mellitus due to underlying condition, Cellulitis of toe of left foot, Cellulitis of toe of right foot Disposition: ADMITTED IP TO THIS HOSP Condition: Stable
[2023-02-20] MEDS ORDERED: NALOXONE 0.4 MG/ML 1 ML VIAL IV PRN (21:46)
--- NOTE | 2023-02-20 22:15 | US ---
EXAMINATION TYPE: US venous doppler duplex LE RT DATE OF EXAM: 02/20/2023 9:29 PM COMPARISON: NONE CLINICAL INDICATION: Female, 88 years old with history of swelling, possible DVT; Rt ankle swelling. Pt states hx of PE in September 2022. Not on blood thinners anymore. SIDE PERFORMED: Right TECHNIQUE: The lower extremity deep venous system is examined utilizing real time linear array sonog geovanny with graded compression, doppler sonography and color-flow sonography. VESSELS IMAGED: Common Femoral Vein Deep Femoral Vein Greater Saphenous Vein * Femoral Vein Popliteal Vein Small Saphenous Vein * Proximal Calf Veins (* superficial vessels) Right Leg: No evidence for DVT. Edema noted in rt ankle IMPRESSION: No evidence for DVT within the right lower extremity imaged from the groin to the upper c arely. Some nonspecific soft tissue swelling/subcutaneous edema at the level of the ankle.
[2023-02-20] MEDS: SODIUM CHLORIDE 0.9% 1,000 ML IV SCH (22:16)
--- NOTE | 2023-02-21 04:54 | P.HPIM ---
History of Present Illness H&P Date: 02/20/23 The patient is an 88-year-old female with a PMH of type II DM with peripheral vascular disease status post palpitations of bilateral third toes distal phalanx who was transferred from [facility] with the patient had presented earlier today with complaints of redness and possible infection in her feet. The patient reports that over the past 2-3 days, she had been feeling more fatigued and had been sleeping more. She felt that this was unusual for her and when she noticed that her feet were getting red and developing ulcers, she decided to have them evaluated. She also reported having chills although did not document a fever. She underwent an extensive evaluation at [facility] which was all reviewed. Bilateral feet x-ray revealed no findings for acute osteomyelitis. Laboratory evaluation revealed an ESR of 47, sodium 138, potassium 4.0, chloride 104, CO2 23, BUN 17, creatinine 0.9, lactic acid 0.8, CRP 11.79, magnesium 1.6, WBC count 13.2 and hemoglobin 10.8. Right lower extremity venous Doppler was negative for DVT. ED documentation reviewed and case discussed with ED provider. Review of systems: Pertinent positives and negatives as discussed in HPI, a complete review of systems was performed and all other systems are negative. Physical examination: Vital signs reviewed General: non toxic, no distress, appears at stated age, normal weight Derm: Left great toe ulcer with surrounding erythema, right second toe ulcer with surrounding erythema Head: atraumatic, normocephalic, symmetric Eyes: EOMI, no lid lag, anicteric sclera, pupils equal round reactive to light ENT: Nose and ears atraumatic Neck: No cervical lymphadenopathy, trachea midline, supple Mouth: no lip lesion, mucus membranes moist Cardiovascular: S1S2 reg, no murmur, positive dorsalis pedis pulse bilateral, right lower extremity 1+ pitting edema noted without Tenderness Lungs: CTA bilateral, no rhonchi, no rales, no accessory muscle use Abdominal: soft, nontender to palpation, no guarding Ext: muscle strength 5 out of 5 in all 4 extremities grossly, no gross muscle atrophy, no contractures, Neuro: CN II-XI grossly intact, no gross focal neuro deficits Psych: Alert, oriented, appropriate affect Assessment: Bilateral diabetic ulcers with cellulitis Chronic conditions: Type II DM, hypertension Imaging: Bilateral feet x-ray revealed no findings for acute osteomyelitis. Data Review: Laboratory evaluation revealed an ESR of 47, sodium 138, potassium 4.0, chloride 104, CO2 23, BUN 17, creatinine 0.9, lactic acid 0.8, CRP 11.79, magnesium 1.6, WBC count 13.2 and hemoglobin 10.8. Plan: Continue with broad spectrum IV antibiotic coverage with Zosyn Infectious disease and vascular surgery consult Continue home medications Insulin sliding scale and blood glucose monitoring DVT prophylaxis: Lovenox The patient is admitted with an anticipated less than 2 midnight stay for evaluation of ulcers CODE STATUS: Full Code Discussed with: Patient Anticipated discharge place: Home Past Medical History Past Medical History: Cancer, Diabetes Mellitus, Eye Disorder, GERD/Reflux, Hypertension, Osteoarthritis (OA) Additional Past Medical History / Comment(s): herminia knee pain,torn meniscus rt knee,hx 2006 R breast cancer with lumpectomy/radiation, NIDDM type II, neuropathy bilateral hands/feet, past hx anemia, occasional low back pain, bilateral glaucoma History of Any Multi-Drug Resistant Organisms: None Reported Past Surgical History: Back Surgery, Breast Surgery, Cholecystectomy, Hysterectomy Additional Past Surgical History / Comment(s): R breast lumpectomy, D&C, low back surgery x2 including caging, EGD, colonoscopy, surgery for kidney stones,sinus surgery, OOPHERECTOMY- BILATERAL Past Anesthesia/Blood Transfusion Reactions: No Reported Reaction, Motion Sickness Additional Past Anesthesia/Blood Transfusion Reaction / Comment(s): Pt has received blood in past without reaction. Past Psychological History: No Psychological Hx Reported Additional Psychological History / Comment(s): Pt resides with spouse. She uses a cane prn. She is independent. Smoking Status: Never smoker Past Alcohol Use History: Rare Past Drug Use History: None Reported - Past Family History Father Family Medical History: No Reported History Additional Family Medical History / Comment(s): Father in a hunting accident Mother Family Medical History: Cancer Additional Family Medical History / Comment(s): Leukemia Medications and Allergies Home Medications Medication Instructions Recorded Confirmed Type Glimepiride [Amaryl] 1 mg PO DAILY 12/06/18 02/20/23 History Latanoprost [Xalatan 0.005%] 1 drop BOTH EYES HS 12/06/18 02/20/23 History Timolol 0.5% Ophth Soln [Timoptic 1 drop BOTH EYES BID 12/06/18 02/20/23 History 0.5% Ophth Soln] Ascorbic Acid [Vitamin C] 1,000 mg PO HS 01/22/21 02/20/23 History Aspirin [Adult Low Dose Aspirin EC] 81 mg PO DAILY 02/20/23 02/20/23 History Brinzolamide/Brimonidine Tart 1 drop BOTH EYES TID 02/20/23 02/20/23 History [Simbrinza 1%-0.2% Eye Drops] Cholecalciferol [Vitamin D3 (25 50 mcg PO HS 02/20/23 02/20/23 History Mcg = 1000 Iu)] Cholestyramine/Aspartame 4 gm PO TID-W/MEALS 02/20/23 02/20/23 History [Cholestyramine Light Packet] Cranberry Fruit Concentrate [Azo 250 mg PO BID 02/20/23 02/20/23 History Cranberry] Cyanocobalamin (Vitamin B-12) 5,000 mcg PO DAILY 02/20/23 02/20/23 History [Vitamin B-12] Escitalopram Oxalate [Lexapro] 10 mg PO DAILY 02/20/23 02/20/23 History Ferrous Sulfate [Iron (65 MG 325 mg PO DAILY 02/20/23 02/20/23 History Elemental)] Fluticasone Nasal [place] [Flonase 1 spray EA NOSTRIL BID 02/20/23 02/20/23 History Nasal [place]] Lactobacillus Acidophilus 1 cap PO HS 02/20/23 02/20/23 History [Florajen Acidophilus] Omeprazole 20 mg PO DAILY 02/20/23 02/20/23 History Pioglitazone [Actos] 15 mg PO DAILY 02/20/23 02/20/23 History Turmeric Root Extract [Turmeric] 1,053 mg PO BID 02/20/23 02/20/23 History atenoloL [Tenormin] 25 mg PO DAILY 02/20/23 02/20/23 History lisinopriL [Zestril] 20 mg PO HS 02/20/23 02/20/23 History Allergies Allergy/AdvReac Type Severity Reaction Status Date / Time atorvastatin [From Lipitor] Allergy muscle pain Verified 02/20/23 21:32 rosuvastatin [From Crestor] Allergy muscle pain Verified 02/20/23 21:32 sulfamethoxazole Allergy Nausea & Verified 02/20/23 21:32 [From Bactrim] Vomiting trimethoprim [From Bactrim] Allergy Nausea & Verified 02/20/23 21:32 Vomiting Physical Exam Vitals: Vital Signs Temp Pulse Pulse Resp BP BP Pulse Ox 02/20/23 23:11 98.6 F 71 17 147/68 95 02/20/23 22:40 81 18 93 L 02/20/23 20:50 98.4 F 65 18 139/59 96 Intake and Output 02/20/23 02/20/23 02/21/23 14:59 22:59 06:59 Other: Weight 69.853 kg Thrombosis Risk Factor Assmnt - Choose All That Apply Any of the Below Risk Factors Present?: Yes Each Factor Represents 1 point: Obesity (BMI >25), Swollen legs (current) Other Risk Factors: Yes Each Risk Factor Represents 3 Points: Age 75 years or older Other congenital or acquired thrombophilia - If yes, enter type in comment: No Thrombosis Risk Factor Assessment Total Risk Factor Score: 5 Thrombosis Risk Factor Assessment Level: High Risk
[2023-02-21 05:59] LABS: Glucose,Whole Blood 127 mg/dL (70-110)
[2023-02-21] MEDS: PIPERACILLIN-TAZOBACTAM 3.375 GM in SODIUM CHLORIDE 0.9% 100 ML IVPB SCH ×3 (06:37→20:29)
[2023-02-21] MEDS: INSULIN ASPART (NovoLOG) 100 UNIT/ML VIAL SQ SCH ×4 (07:05→20:50)
[2023-02-21] MEDS: FERROUS SULFATE 325 MG TAB PO SCH (08:28)
[2023-02-21] MEDS: TIMOLOL 0.5% OPHTH DROPS 5 ML BTL BOTH EYES SCH ×2 (08:28→20:44)
[2023-02-21] MEDS: FLUTICASONE 50MCG/SPRAY NASAL 16GM EA NOSTRIL SCH ×2 (08:28→20:41)
[2023-02-21] MEDS: ENOXAPARIN 40 MG/0.4 ML SYRINGE SQ SCH (08:28)
[2023-02-21] MEDS: FAMOTIDINE 20 MG TAB PO SCH ×2 (08:28→20:41)
[2023-02-21] MEDS: ESCITALOPRAM 10 MG TAB PO SCH (08:29)
[2023-02-21 11:54] LABS: Glucose,Whole Blood 161 mg/dL (70-110)
--- NOTE | 2023-02-21 11:56 | P.GSCN ---
History of Present Illness Consult date: 02/21/23 History of present illness: Patient is an 88-year-old female who has a history of previous toe partial indications for infected wounds. She has had worsening coloration of some of her toes which caused her to present to an outside ER and subsequently be transferred to this hospital. She states that she's been utilizing her treadmill for walking and she cannot yet seem to find shoes that are comfortable in order to do this. She had some areas that were rubbing and over the past few days had some worsening coloration of her left great toe and right second toe. She denies any previous current wounds or wound care to her toes she denies any calf pain or leg pain with ambulation. She denies any fevers or chills. Past Medical History Past Medical History: Cancer, Diabetes Mellitus, Eye Disorder, GERD/Reflux, Hypertension, Osteoarthritis (OA) Additional Past Medical History / Comment(s): herminia knee pain,torn meniscus rt knee,hx 2006 R breast cancer with lumpectomy/radiation, NIDDM type II, neur opathy bilateral hands/feet, past hx anemia, occasional low back pain, bilateral glaucoma History of Any Multi-Drug Resistant Organisms: None Reported Past Surgical History: Back Surgery, Breast Surgery, Cholecystectomy, Hysterectomy Additional Past Surgical History / Comment(s): R breast lumpectomy, D&C, low back surgery x2 including caging, EGD, colonoscopy, surgery for kidney stones,sinus surgery, OOPHERECTOMY- BILATERAL Past Anesthesia/Blood Transfusion Reactions: No Reported Reaction, Motion Sickness Additional Past Anesthesia/Blood Transfusion Reaction / Comm: Pt has received blood in past without reaction. Past Psychological History: No Psychological Hx Reported Additional Psychological History / Comment(s): Pt resides with spouse. She uses a cane prn. She is independent. Smoking Status: Never smoker Past Alcohol Use History: Rare Past Drug Use History: None Reported - Past Family History Father Family Medical History: No Reported History Additional Family Medical History / Comment(s): Father in a hunting accident Mother Family Medical History: Cancer Additional Family Medical History / Comment(s): Leukemia Medications and Allergies Home Medications Medication Instructions Recorded Confirmed Type Glimepiride [Amaryl] 1 mg PO DAILY 12/06/18 02/20/23 History Latanoprost [Xalatan 0.005%] 1 drop BOTH EYES HS 12/06/18 02/20/23 History Timolol 0.5% Ophth Soln [Timoptic 1 drop BOTH EYES BID 12/06/18 02/20/23 History 0.5% Ophth Soln] Ascorbic Acid [Vitamin C] 1,000 mg PO HS 01/22/21 02/20/23 History Aspirin [Adult Low Dose Aspirin EC] 81 mg PO DAILY 02/20/23 02/20/23 History Brinzolamide/Brimonidine Tart 1 drop BOTH EYES TID 02/20/23 02/20/23 History [Simbrinza 1%-0.2% Eye Drops] Cholecalciferol [Vitamin D3 (25 50 mcg PO HS 02/20/23 02/20/23 History Mcg = 1000 Iu)] Cholestyramine/Aspartame 4 gm PO TID-W/MEALS 02/20/23 02/20/23 History [Cholestyramine Light Packet] Cranberry Fruit Concentrate [Azo 250 mg PO BID 02/20/23 02/20/23 History Cranberry] Cyanocobalamin (Vitamin B-12) 5,000 mcg PO DAILY 02/20/23 02/20/23 History [Vitamin B-12] Escitalopram Oxalate [Lexapro] 10 mg PO DAILY 02/20/23 02/20/23 History Ferrous Sulfate [Iron (65 MG 325 mg PO DAILY 02/20/23 02/20/23 History Elemental)] Fluticasone Nasal [place] [Flonase 1 spray EA NOSTRIL BID 02/20/23 02/20/23 History Nasal [place]] Lactobacillus Acidophilus 1 cap PO HS 02/20/23 02/20/23 History [Florajen Acidophilus] Omeprazole 20 mg PO DAILY 02/20/23 02/20/23 History Pioglitazone [Actos] 15 mg PO DAILY 02/20/23 02/20/23 History Turmeric Root Extract [Turmeric] 1,053 mg PO BID 02/20/23 02/20/23 History atenoloL [Tenormin] 25 mg PO DAILY 02/20/23 02/20/23 History lisinopriL [Zestril] 20 mg PO HS 02/20/23 02/20/23 History Allergies Allergy/AdvReac Type Severity Reaction Status Date / Time atorvastatin [From Lipitor] Allergy muscle pain Verified 02/20/23 21:32 rosuvastatin [From Crestor] Allergy muscle pain Verified 02/20/23 21:32 sulfamethoxazole Allergy Nausea & Verified 02/20/23 21:32 [From Bactrim] Vomiting trimethoprim [From Bactrim] Allergy Nausea & Verified 02/20/23 21:32 Vomiting Surgical - Exam Vital Signs Temp Pulse Resp BP Pulse Ox 98.4 F 65 18 139/59 96 02/20/23 20:50 02/20/23 20:50 02/20/23 20:50 02/20/23 20:50 02/20/23 20:50 Gen. is a pleasant cooperative female in no acute distress. HEENT is no cephalic, atraumatic, etc. he motion intact. Heart appears regular. Lungs are clear. Abdomen is soft. Extremity show no cyanosis. There is mild bilateral lower extremity edema at the ankles. She maintains a palpable left dorsalis pedis and right posterior tibial pulse. Motor sensory intact. On the right second toe there is an area of the leg with surrounding erythema. On the left great toe there is a bullae with surrounding erythema. Results After verbal and informed consent, both the areas of bullae and toes were prepped with alcohol swabs. A scalpel was utilized in order to excise and de bride the area of bullae. There was purulent drainage which was cultured from the left great toe. The left great toe blister was fully removed and there did appear to be a small punctate wound to the medial plantar portion of the toe with fibrinous tissue. This tissue was sharply excised. The resultant wound measured 1.7 x 1 x 0.3 to subcutaneous tissues. On the right second toe similarly, the bullae was sharply incised and drained, due to the appearance of the fluid, the entirety of the bullae was unroofed, there did not appear to be any underlying wound. The wound was debrided to the level of the dermis and final measurements were 1.2 x 1 x 0.2 cm. Patient tolerated the procedure well. - Labs Abnormal Lab Results - Last 24 Hours (Table) 02/21/23 Range/Units 05:53 POC Glucose (mg/dL) 127 H (70-110) mg/dL Assessment and Plan Assessment: Infected wounds bilateral toes Diabetes Plan: Continue with IV antibiotics, continue with local wound care at this point. No aggressive need for urgent intervention/amputation currently. Did discuss with the patient that should she not have healing of her wound she may need further imaging such as a bone scan in order to evaluate for more chronic osteomyelitis however this can be performed as an outpatient with appropriate wound care follow-up. Await culture results for antibiotic recommendation per ID.
--- NOTE | 2023-02-21 14:29 | P.PN ---
Subjective Progress Note Date: 02/21/23 Hospital Course: 88-year-old female with a PMH of type II DM with peripheral vascular disease status post palpitations of bilateral third toes distal phalanx who was transferred from [facility] with the patient had presented earlier today with complaints of redness and possible infection in her feet. Bilateral feet x-ray revealed no findings for acute osteomyelitis. Laboratory evaluation revealed an ESR of 47, sodium 138, potassium 4.0, chloride 104, CO2 23, BUN 17, creatinine 0.9, lactic acid 0.8, CRP 11.79, magnesium 1.6, WBC count 13.2 and hemoglobin 10.8. Right lower extremity venous Doppler was negative for DVT. Patient was admitted for cellulitis, started on IV Zosyn. ID and ask for surgery consulted. Subjective: Patient seen and examined at bedside. No acute events overnight. Does not have much feeling in her lower extremity due to long-standing diabetes. Claims that her feet have been more erythematous and edematous especially right. Pertinent positives and negatives as discussed above, a complete review of systems was performed and all other systems are negative. Vitals Signs Reviewed. General: non toxic, no distress, appears at stated age, normal weight Derm: Left great toe ulcer with surrounding erythema, right second toe ulcer wit h surrounding erythema Head: atraumatic, normocephalic, symmetric Eyes: EOMI, no lid lag, anicteric sclera, pupils equal round reactive to light ENT: Nose and ears atraumatic Neck: No cervical lymphadenopathy, trachea midline, supple Mouth: no lip lesion, mucus membranes moist Cardiovascular: S1S2 reg, no murmur, positive dorsalis pedis pulse bilateral, right lower extremity 1+ pitting edema noted without Tenderness Lungs: CTA bilateral, no rhonchi, no rales, no accessory muscle use Abdominal: soft, nontender to palpation, no guarding Ext: muscle strength 5 out of 5 in all 4 extremities grossly, no gross muscle atrophy, no contractures, Neuro: CN II-XI grossly intact, no gross focal neuro deficits Psych: Alert, oriented, appropriate affect Data Reviewed Today: Pertinent Labs: Blood glucose range between 120 716 Imaging: No imaging Assessment and Plan: Active: Diabetic foot infection Lower extremity cellulitis Type 2 diabetes -Vascular surgery note reviewed, continue IV antibiotics and local wound care, no interventions at the moment -Cultures pending -ID consulted -Continue IV Zosyn -Sliding scale insulin Chronic: Hypertension DVT ppx: Lovenox Code status: Full code Anticipated discharge place: Pending clinical course Anticipated discharge time: Pending clinical course Objective - Vital Signs Vital signs: Vital Signs Temp 98.0 F 02/21/23 08:40 Pulse 73 02/21/23 08:40 Resp 18 02/21/23 08:40 BP 165/75 02/21/23 08:40 Pulse Ox 92 L 02/21/23 08:40 FiO2 Intake & Output 02/20/23 02/21/23 02/21/23 18:59 06:59 18:59 Weight 69.853 kg Other: # Voids 2 1 # Bowel Movements 1 - Labs Labs: Abnormal Lab Results - Last 24 Hours (Table) 02/21/23 02/21/23 Range/Units 05:53 11:52 POC Glucose (mg/dL) 127 H 161 H (70-110) mg/dL
[2023-02-21 16:57] LABS: Glucose,Whole Blood 148 mg/dL (70-110)
[2023-02-21] MEDS: BRIMONIDINE TARTRATE 0.2% DROPS 5 ML BTL BOTH EYES SCH ×2 (17:42→20:29)
[2023-02-21] MEDS: DORZOLAMIDE HCL 2% DROPS 10 ML BTL BOTH EYES SCH ×2 (17:44→20:29)
[2023-02-21] MEDS: CHOLESTYRAMINE (WITH SUGAR) 4 GM PACKET PO SCH (17:44)
[2023-02-21 20:13] LABS: Glucose,Whole Blood 212 mg/dL (70-110)
[2023-02-21] MEDS: lisinopriL 20 MG TAB PO SCH (20:39)
[2023-02-21] MEDS: CHOLECALCIFEROL 25 MCG (1000 IU) TABLET PO SCH (20:40)
[2023-02-21] MEDS: ASCORBIC ACID 500 MG TAB PO SCH (20:40)
[2023-02-21] MEDS: LACTOBACILLUS ACIDOPHILUS/PECT 1 EACH CAPSULE PO SCH (20:41)
[2023-02-21] MEDS: LATANOPROST 0.005% OPHTH DROPS 2.5 ML BTL BOTH EYES SCH (20:43)
[2023-02-21] MEDS: SODIUM CHLORIDE 0.9% 1,000 ML IV SCH (22:31)
--- NOTE | 2023-02-21 22:54 | P.CONS ---
History of Present Illness - Reason for Consult Consult date: 02/21/23 - History of Present Illness Patient is a 88-year-old female with a past medical history sniffing and for type 2 diabetes mellitus peripheral vascular disease patient did have a bilateral third toe distal phalanx amputation and second presented to the [facility] for feeling fatigue sleeping more and noticed to having swelling redness to the left big toe and the right second toe patient denies any history of any trauma, patient did have a bilateral feet x-ray at the [facility] negative for any osteomyelitis did have white count 13.2 and worsening Doppler was negative for DVT patient was subsequently transferred to [facility] for further evaluation patient has been complaining of sore to the left big toe and right second toe that been going on for more than a week she has been complaining of pain at especially to the left big toe area with a sore on the bottom with associated swelling redness. Describes the pain to be sharp 5-6/10 no radiation, patient was evaluated by vascular surgery and the patient did have a excision of the bullae with evidence of purulent material similar procedure was done on the right second toe cultures has been obtained which are currently pending patient is currently being treated with Zosyn infectious he was consulted for further management of antibiotic therapy Past Medical History Past Medical History: Cancer, Diabetes Mellitus, Eye Disorder, GERD/Reflux, Hypertension, Osteoarthritis (OA) Additional Past Medical History / Comment(s): herminia knee pain,torn meniscus rt knee,hx 2006 R breast cancer with lumpectomy/radiation, NIDDM type II, neuropathy bilateral hands/feet, past hx anemia, occasional low back pain, bilateral glaucoma History of Any Multi-Drug Resistant Organisms: None Reported Past Surgical History: Back Surgery, Breast Surgery, Cholecystectomy, Hysterectomy Additional Past Surgical History / Comment(s): R breast lumpectomy, D&C, low back surgery x2 including caging, EGD, colonoscopy, surgery for kidney stones,sinus surgery, OOPHERECTOMY- BILATERAL Past Anesthesia/Blood Transfusion Reactions: No Reported Reaction, Motion Sickness Additional Past Anesthesia/Blood Transfusion Reaction / Comm: Pt has received blood in past without reaction. Past Psychological History: No Psychological Hx Reported Additional Psychological History / Comment(s): Pt resides with spouse. She uses a cane prn. She is independent. Smoking Status: Never smoker Past Alcohol Use History: Rare Past Drug Use History: None Reported - Past Family History Father Family Medical History: No Reported History Additional Family Medical History / Comment(s): Father in a hunting accident Mother Family Medical History: Cancer Additional Family Medical History / Comment(s): Leukemia Medications and Allergies Home Medications Medication Instructions Recorded Confirmed Type Glimepiride [Amaryl] 1 mg PO DAILY 12/06/18 02/20/23 History Latanoprost [Xalatan 0.005%] 1 drop BOTH EYES HS 12/06/18 02/20/23 History Timolol 0.5% Ophth Soln [Timoptic 1 drop BOTH EYES BID 12/06/18 02/20/23 History 0.5% Ophth Soln] Ascorbic Acid [Vitamin C] 1,000 mg PO HS 01/22/21 02/20/23 History Aspirin [Adult Low Dose Aspirin EC] 81 mg PO DAILY 02/20/23 02/20/23 History Brinzolamide/Brimonidine Tart 1 drop BOTH EYES TID 02/20/23 02/20/23 History [Simbrinza 1%-0.2% Eye Drops] Cholecalciferol [Vitamin D3 (25 50 mcg PO HS 02/20/23 02/20/23 History Mcg = 1000 Iu)] Cholestyramine/Aspartame 4 gm PO TID-W/MEALS 02/20/23 02/20/23 History [Cholestyramine Light Packet] Cranberry Fruit Concentrate [Azo 250 mg PO BID 02/20/23 02/20/23 History Cranberry] Cyanocobalamin (Vitamin B-12) 5,000 mcg PO DAILY 02/20/23 02/20/23 History [Vitamin B-12] Escitalopram Oxalate [Lexapro] 10 mg PO DAILY 02/20/23 02/20/23 History Ferrous Sulfate [Iron (65 MG 325 mg PO DAILY 02/20/23 02/20/23 History Elemental)] Fluticasone Nasal [place] [Flonase 1 spray EA NOSTRIL BID 02/20/23 02/20/23 History Nasal [place]] Lactobacillus Acidophilus 1 cap PO HS 02/20/23 02/20/23 History [Florajen Acidophilus] Omeprazole 20 mg PO DAILY 02/20/23 02/20/23 History Pioglitazone [Actos] 15 mg PO DAILY 02/20/23 02/20/23 History Turmeric Root Extract [Turmeric] 1,053 mg PO BID 02/20/23 02/20/23 History atenoloL [Tenormin] 25 mg PO DAILY 02/20/23 02/20/23 History lisinopriL [Zestril] 20 mg PO HS 02/20/23 02/20/23 History Allergies Allergy/AdvReac Type Severity Reaction Status Date / Time atorvastatin [From Lipitor] Allergy muscle pain Verified 02/20/23 21:32 rosuvastatin [From Crestor] Allergy muscle pain Verified 02/20/23 21:32 sulfamethoxazole Allergy Nausea & Verified 02/20/23 21:32 [From Bactrim] Vomiting trimethoprim [From Bactrim] Allergy Nausea & Verified 02/20/23 21:32 Vomiting Physical Exam Vitals: Vital Signs Temp Pulse Pulse Resp BP BP Pulse Ox 02/21/23 08:40 98.0 F 73 18 165/75 92 L 02/21/23 01:30 98.7 F 74 18 152/72 94 L 02/20/23 23:11 98.6 F 71 17 147/68 95 02/20/23 22:40 81 18 93 L 02/20/23 20:50 98.4 F 65 18 139/59 96 Intake and Output 02/20/23 02/21/23 02/21/23 22:59 06:59 14:59 Other: # Voids 2 1 # Bowel Movements 1 Weight 69.853 kg Results Labs: Abnormal Lab Results - Last 24 Hours (Table) 02/21/23 02/21/23 Range/Units 05:53 11:52 POC Glucose (mg/dL) 127 H 161 H (70-110) mg/dL Assessment and Plan Plan: 1patient with diabetic foot infection involving the left big toe with likely infected callus/bullae that has been debrided at the bedside by vascular surgery and also her right second toe will need to cover for the polymicrobial rica usually associated with diabetic foot infection. 2patient to continue Zosyn 3.375 g every 8 hours while waiting for the culture to finalize. 3local wound care per vascular surgery. We will follow on clinical condition and cultures to further adjust medication if needed Thank you for this consultation we will follow the patient along with you Dictation was produced using [employer] dictation software. please excuse any grammatical, word or spelling errors. Time with Patient: Greater than 30
[2023-02-22 06:12] LABS: Glucose,Whole Blood 132 mg/dL (70-110)
[2023-02-22] MEDS: PIPERACILLIN-TAZOBACTAM 3.375 GM in SODIUM CHLORIDE 0.9% 100 ML IVPB SCH ×3 (06:56→21:17)
[2023-02-22] MEDS: PANTOPRAZOLE 40 MG TABLET PO SCH (06:57)
[2023-02-22] MEDS: CHOLESTYRAMINE (WITH SUGAR) 4 GM PACKET PO SCH ×3 (06:57→16:55)
[2023-02-22] MEDS: INSULIN ASPART (NovoLOG) 100 UNIT/ML VIAL SQ SCH ×4 (07:34→21:20)
[2023-02-22] MEDS: ACETAMINOPHEN TAB 325 MG TAB PO PRN (07:44)
[2023-02-22 08:24] LABS: Basophils # (A) 0.04 X 10*3/uL (0.00-0.10); Basophils % (A) 0.4 %; Eosinophils # (A) 0.29 X 10*3/uL (0.04-0.35); Eosinophils % (A) 2.6 %; HCT 34.1 % (37.2-46.3); HGB 10.5 d/dL (12.0-15.0); Lymphocytes % (A) 8.2 %; MCH 29.2 pg (27.0-32.0); MCHC 30.8 d/dL (32.0-37.0); MCV 94.7 FL (80.0-97.0); Mean Platelet Volume 11.2 FL (9.5-12.2); Monocytes % (A) 8.2 %; NRBC Per 100 WBC 0 X 10*3/uL (0.00-0.01); Neutrophils % (A) 80.1 %; Platelet Count 213 X 10*3/uL (140-440); RDW 15.1 % (11.5-14.5); WBC 10.98 X 10*3/uL (4.50-10.00)
[2023-02-22 08:40] LABS: BUN/Creat Ratio 17.25 Ratio (12.00-20.00); Blood Urea Nitrogen 13.8 mg/dL (9.0-27.0); Calcium 9.1 mg/dL (8.7-10.3); Carbon Dioxide 27.3 mmol/L (21.6-31.8); Chloride 103 mmol/L (96-109); Glucose 123 mg/dL (70-110); Sodium 140 mmol/L (135-145)
[2023-02-22] MEDS: ALBUTEROL NEBULIZED 2.5 MG/3 ML INHALATION PRN ×2 (08:41→19:54)
--- NOTE | 2023-02-22 09:11 | XR ---
EXAMINATION TYPE: XR chest 1V portable DATE OF EXAM: 02/22/2023 8:18 AM COMPARISON: none TECHNIQUE: XR chest 1V portable Frontal view of the chest. CLINICAL INDICATION:Female, 88 years old with history of SOB; FINDINGS: Lungs/Pleura: There is no evidence of pleural effusion, focal consolidation, or pneumothorax. Pulmonary vascularity: Unremarkable. Heart/mediastinum: Cardiomediastinal silhouette is unremarkable. Musculoskeletal: No acute osseous pathology. Right axillary surgical clips. IMPRESSION: No acute cardiopulmonary disease/process.
[2023-02-22] MEDS: BRIMONIDINE TARTRATE 0.2% DROPS 5 ML BTL BOTH EYES SCH ×3 (10:04→21:21)
[2023-02-22] MEDS: DORZOLAMIDE HCL 2% DROPS 10 ML BTL BOTH EYES SCH ×3 (10:04→21:20)
[2023-02-22] MEDS: FAMOTIDINE 20 MG TAB PO SCH (10:05)
[2023-02-22] MEDS: ASPIRIN 81 MG PO SCH (10:05)
[2023-02-22] MEDS: CYANOCOBALAMIN 500 MCG TAB PO SCH (10:05)
[2023-02-22] MEDS: ENOXAPARIN 40 MG/0.4 ML SYRINGE SQ SCH (10:05)
[2023-02-22] MEDS: FERROUS SULFATE 325 MG TAB PO SCH (10:06)
[2023-02-22] MEDS: FLUTICASONE 50MCG/SPRAY NASAL 16GM EA NOSTRIL SCH ×2 (10:06→21:20)
[2023-02-22] MEDS: atenoloL 25 MG TAB PO SCH (10:06)
[2023-02-22] MEDS: TIMOLOL 0.5% OPHTH DROPS 5 ML BTL BOTH EYES SCH ×2 (10:06→21:21)
[2023-02-22] MEDS: ESCITALOPRAM 10 MG TAB PO SCH (10:06)
[2023-02-22 11:38] LABS: Glucose,Whole Blood 222 mg/dL (70-110)
--- NOTE | 2023-02-22 11:56 | P.GSCN ---
History of Present Illness Consult date: 02/22/23 Reason for Consult: Diabetic foot ulcers Requesting physician: Ángela Davidson History of present illness: This is an 88-year-old diabetic female who has had history of previous ulcerations. She currently lives at home with her . She has developed ulcerations on the toes of both feet with some surrounding cellulitis. Review of Systems All systems: negative Past Medical History Past Medical History: Cancer, Diabetes Mellitus, Eye Disorder, GERD/Reflux, Hypertension, Osteoarthritis (OA) Additional Past Medical History / Comment(s): herminia knee pain,torn meniscus rt knee,hx 2006 R breast cancer with lumpectomy/radiation, NIDDM type II, neuropathy bilateral hands/feet, past hx anemia, occasional low back pain, bilateral glaucoma History of Any Multi-Drug Resistant Organisms: None Reported Past Surgical History: Back Surgery, Breast Surgery, Cholecystectomy, Hysterectomy Additional Past Surgical History / Comment(s): R breast lumpectomy, D&C, low back surgery x2 including caging, EGD, colonoscopy, surgery for kidney sto olimpia,sinus surgery, OOPHERECTOMY- BILATERAL Past Anesthesia/Blood Transfusion Reactions: No Reported Reaction, Motion Sickness Additional Past Anesthesia/Blood Transfusion Reaction / Comm: Pt has received blood in past without reaction. Past Psychological History: No Psychological Hx Reported Additional Psychological History / Comment(s): Pt resides with spouse. She uses a cane prn. She is independent. Smoking Status: Never smoker Past Alcohol Use History: Rare Past Drug Use History: None Reported - Past Family History Father Family Medical History: No Reported History Additional Family Medical History / Comment(s): Father in a hunting accident Mother Family Medical History: Cancer Additional Family Medical History / Comment(s): Leukemia Medications and Allergies Home Medications Medication Instructions Recorded Confirmed Type Glimepiride [Amaryl] 1 mg PO DAILY 12/06/18 02/20/23 History Latanoprost [Xalatan 0.005%] 1 drop BOTH EYES HS 12/06/18 02/20/23 History Timolol 0.5% Ophth Soln [Timoptic 1 drop BOTH EYES BID 12/06/18 02/20/23 History 0.5% Ophth Soln] Ascorbic Acid [Vitamin C] 1,000 mg PO HS 01/22/21 02/20/23 History Aspirin [Adult Low Dose Aspirin EC] 81 mg PO DAILY 02/20/23 02/20/23 History Brinzolamide/Brimonidine Tart 1 drop BOTH EYES TID 02/20/23 02/20/23 History [Simbrinza 1%-0.2% Eye Drops] Cholecalciferol [Vitamin D3 (25 50 mcg PO HS 02/20/23 02/20/23 History Mcg = 1000 Iu)] Cholestyramine/Aspartame 4 gm PO TID-W/MEALS 02/20/23 02/20/23 History [Cholestyramine Light Packet] Cranberry Fruit Concentrate [Azo 250 mg PO BID 02/20/23 02/20/23 History Cranberry] Cyanocobalamin (Vitamin B-12) 5,000 mcg PO DAILY 02/20/23 02/20/23 History [Vitamin B-12] Escitalopram Oxalate [Lexapro] 10 mg PO DAILY 02/20/23 02/20/23 History Ferrous Sulfate [Iron (65 MG 325 mg PO DAILY 02/20/23 02/20/23 History Elemental)] Fluticasone Nasal Russell [Flonase 1 spray EA NOSTRIL BID 02/20/23 02/20/23 History Nasal Russell] Lactobacillus Acidophilus 1 cap PO HS 02/20/23 02/20/23 History [Florajen Acidophilus] Omeprazole 20 mg PO DAILY 02/20/23 02/20/23 History Pioglitazone [Actos] 15 mg PO DAILY 02/20/23 02/20/23 History Turmeric Root Extract [Turmeric] 1,053 mg PO BID 02/20/23 02/20/23 History atenoloL [Tenormin] 25 mg PO DAILY 02/20/23 02/20/23 History lisinopriL [Zestril] 20 mg PO HS 02/20/23 02/20/23 History Allergies Allergy/AdvReac Type Severity Reaction Status Date / Time atorvastatin [From Lipitor] Allergy muscle pain Verified 02/20/23 21:32 rosuvastatin [From Crestor] Allergy muscle pain Verified 02/20/23 21:32 sulfamethoxazole Allergy Nausea & Verified 02/20/23 21:32 [From Bactrim] Vomiting trimethoprim [From Bactrim] Allergy Nausea & Verified 02/20/23 21:32 Vomiting Surgical - Exam Osteopathic Statement: *. No significant issues noted on an osteopathic structural exam other than those noted in the History and Physical/Consult. Vital Signs Temp Pulse Resp BP Pulse Ox 98.4 F 65 18 139/59 96 02/20/23 20:50 02/20/23 20:50 02/20/23 20:50 02/20/23 20:50 02/20/23 20:50 Ulcers medial aspect of left great toe, which is fairly small, distal tip right second toe under calluses with purulence. Surgically missing ends of third toe on the right and another toe on the left. Results - Labs 02/22/23 05:34 02/22/23 05:34 Abnormal Lab Results - Last 24 Hours (Table) 02/21/23 02/21/23 02/21/23 Range/Units 11:52 16:54 20:11 WBC (4.50-10.00) X 10*3/uL RBC (4.10-5.20) X 10*6/uL Hgb (12.0-15.0) d/dL Hct (37.2-46.3) % MCHC (32.0-37.0) d/dL RDW (11.5-14.5) % Neutrophils # (1.80-7.70) X 10*3/uL Glucose (70-110) mg/dL POC Glucose (mg/dL) 161 H 148 H 212 H (70-110) mg/dL 02/22/23 02/22/23 02/22/23 Range/Units 05:34 05:34 06:10 WBC 10.98 H (4.50-10.00) X 10*3/uL RBC 3.60 L (4.10-5.20) X 10*6/uL Hgb 10.5 L (12.0-15.0) d/dL Hct 34.1 L (37.2-46.3) % MCHC 30.8 L (32.0-37.0) d/dL RDW 15.1 H (11.5-14.5) % Neutrophils # 8.80 H (1.80-7.70) X 10*3/uL Glucose 123 H (70-110) mg/dL POC Glucose (mg/dL) 132 H (70-110) mg/dL 02/22/23 Range/Units 11:37 WBC (4.50-10.00) X 10*3/uL RBC (4.10-5.20) X 10*6/uL Hgb (12.0-15.0) d/dL Hct (37.2-46.3) % MCHC (32.0-37.0) d/dL RDW (11.5-14.5) % Neutrophils # (1.80-7.70) X 10*3/uL Glucose (70-110) mg/dL POC Glucose (mg/dL) 222 H (70-110) mg/dL Diabetes panel 02/22/23 Range/Units 05:34 Sodium 140 (135-145) mmol/L Potassium 4.0 (3.5-5.5) mmol/L Chloride 103 (96-109) mmol/L Carbon Dioxide 27.3 (21.6-31.8) mmol/L BUN 13.8 (9.0-27.0) mg/dL Creatinine 0.8 (0.6-1.5) mg/dL Glucose 123 H (70-110) mg/dL Calcium 9.1 (8.7-10.3) mg/dL Calcium panel 02/22/23 Range/Units 05:34 Calcium 9.1 (8.7-10.3) mg/dL Pituitary panel 02/22/23 Range/Units 05:34 Sodium 140 (135-145) mmol/L Potassium 4.0 (3.5-5.5) mmol/L Chloride 103 (96-109) mmol/L Carbon Dioxide 27.3 (21.6-31.8) mmol/L BUN 13.8 (9.0-27.0) mg/dL Creatinine 0.8 (0.6-1.5) mg/dL Glucose 123 H (70-110) mg/dL Calcium 9.1 (8.7-10.3) mg/dL Adrenal panel 02/22/23 Range/Units 05:34 Sodium 140 (135-145) mmol/L Potassium 4.0 (3.5-5.5) mmol/L Chloride 103 (96-109) mmol/L Carbon Dioxide 27.3 (21.6-31.8) mmol/L BUN 13.8 (9.0-27.0) mg/dL Creatinine 0.8 (0.6-1.5) mg/dL Glucose 123 H (70-110) mg/dL Calcium 9.1 (8.7-10.3) mg/dL Assessment and Plan (1) Diabetic ulcer of right foot associated with diabetes mellitus due to underlying condition, with fat layer exposed Current Visit: Yes Status: Acute Code(s): E08.621 - DIABETES MELLITUS DUE TO UNDERLYING CONDITION W FOOT ULCER; L97.512 - NON-PRS CHRONIC ULCER OTH PRT RIGHT FOOT W FAT LAYER EXPOSED SNOMED Code(s): 905583958 (2) Diabetic ulcer of left foot associated with diabetes mellitus due to underlying condition, with fat layer exposed Current Visit: Yes Status: Acute Code(s): E08.621 - DIABETES MELLITUS DUE TO UNDERLYING CONDITION W FOOT ULCER; L97.522 - NON-PRS CHRONIC ULCER OTH PRT LEFT FOOT W FAT LAYER EXPOSED SNOMED Code(s): 600110742 Plan: I recommend straightforward wound treatment at this time with absorptive silver and gauze dressings. I discussed and described these dressings to nursing staff. Dressing should be carried on every other day. I recommend follow-up in wound care center for further progress and adjustment of care as needed. Prognosis for healing is fair in regards to the hammertoe deformity on the right foot. She may eventually require distal amputation of th is toe to prevent further ulceration, however that would be a last resort. In my conversation with the patient it seems as if she and her are unable to provide adequate care for themselves in their home. I would therefore recommend consultation with social scientist for appropriate support systems on discharge. Patient has already been seen by Dr. Davidson who will manage any further needs in their vascular assessment or treatment.
--- NOTE | 2023-02-22 13:23 | P.PN ---
Subjective Progress Note Date: 02/22/23 Principal diagnosis: Toe wounds Patient was seen and examined today as a follow-up. No new complaints at this time. She remains afebrile. Wound cultures currently pending. Patient remains on IV Zosyn. Objective - Vital Signs Vital signs: Vital Signs Temp 97.6 F 02/22/23 08:22 Pulse 80 02/22/23 08:53 Resp 17 02/22/23 08:22 BP 175/63 02/22/23 08:22 Pulse Ox 100 02/22/23 08:22 FiO2 Intake & Output 02/21/23 02/22/23 02/22/23 18:59 06:59 18:59 Other: # Voids 2 3 # Bowel Movements 1 - Exam General appearance: The patient is alert, oriented, appears in no acute distress. HET: Head is normocephalic and atraumatic. Pupils are equal and reactive. Neck: Supple. Extremities: Normal skin color and turgor. No cyanosis, patient with bilateral lower extremity edema at the ankles. Palpable left dorsalis pedis and right PT pulse. Sensorimotor intact. Bilateral feet with dressings clean dry and intact. Neurological: No focal deficits. Strength and sensation are grossly intact. - Labs CBC & Chem 7: 02/22/23 05:34 02/22/23 05:34 Labs: Abnormal Lab Results - Last 24 Hours (Table) 02/21/23 02/21/23 02/22/23 Range/Units 16:54 20:11 05:34 WBC 10.98 H (4.50-10.00) X 10*3/uL RBC 3.60 L (4.10-5.20) X 10*6/uL Hgb 10.5 L (12.0-15.0) d/dL Hct 34.1 L (37.2-46.3) % MCHC 30.8 L (32.0-37.0) d/dL RDW 15.1 H (11.5-14.5) % Neutrophils # 8.80 H (1.80-7.70) X 10*3/uL Glucose (70-110) mg/dL POC Glucose (mg/dL) 148 H 212 H (70-110) mg/dL 02/22/23 02/22/23 02/22/23 Range/Units 05:34 06:10 11:37 WBC (4.50-10.00) X 10*3/uL RBC (4.10-5.20) X 10*6/uL Hgb (12.0-15.0) d/dL Hct (37.2-46.3) % MCHC (32.0-37.0) d/dL RDW (11.5-14.5) % Neutrophils # (1.80-7.70) X 10*3/uL Glucose 123 H (70-110) mg/dL POC Glucose (mg/dL) 132 H 222 H (70-110) mg/dL Assessment and Plan Assessment: 1. Infected Diabetic ulcers, bilateral toes 2. Diabetes mellitus Plan: 1. Continue local wound care per recommendations from wound clinic and follow up outpatient with wound clinic 2. Continue IV antibiotics per recommendations from infectious disease 3. No further vascular surgical intervention warranted at this time Thank you for this consultation, we will sign off at this time. The impression and plan of care has been dictated as directed. I performed a history and examination of this patient, discussed the same with the dictator. I agree with the dictator's note ,documented as a scribe. Any additional findings or plans will be noted.
--- NOTE | 2023-02-22 13:40 | P.PN ---
Subjective Progress Note Date: 02/22/23 Hospital Course: 88-year-old female with a PMH of type II DM with peripheral vascular disease st atus post palpitations of bilateral third toes distal phalanx who was transferred from [facility] with the patient had presented earlier today with complaints of redness and possible infection in her feet. Bilateral feet x-ray revealed no findings for acute osteomyelitis. Laboratory evaluation revealed an ESR of 47, sodium 138, potassium 4.0, chloride 104, CO2 23, BUN 17, creatinine 0.9, lactic acid 0.8, CRP 11.79, magnesium 1.6, WBC count 13.2 and hemoglobin 10.8. Right lower extremity venous Doppler was negative for DVT. Patient was admitted for cellulitis, started on IV Zosyn. ID and ask for surgery consulted. Subjective: Patient seen and examined at bedside. No acute events overnight. Claims that she had worsening shortness of breath and wheezing overnight. Denies any swelling or new rashes Pertinent positives and negatives as discussed above, a complete review of systems was performed and all other systems are negative. Vitals Signs Reviewed. General: non toxic, no distress, appears at stated age, normal weight Derm: Left great toe ulcer with surrounding erythema, right second toe ulcer with surrounding erythema Head: atraumatic, normocephalic, symmetric Eyes: EOMI, no lid lag, anicteric sclera, pupils equal round reactive to light ENT: Nose and ears atraumatic Neck: No cervical lymphadenopathy, trachea midline, supple Mouth: no lip lesion, mucus membranes moist Cardiovascular: S1S2 reg, no murmur, positive dorsalis pedis pulse bilateral, right lower extremity 1+ pitting edema noted without Tenderness Lungs: Scattered end expiratory wheezing, no accessory muscle use, supplemental oxygen Abdominal: soft, nontender to palpation, no guarding Ext: muscle strength 5 out of 5 in all 4 extremities grossly, no gross muscle atrophy, no contractures, Neuro: CN II-XI grossly intact, no gross focal neuro deficits Psych: Alert, oriented, appropriate affect Data Reviewed Today: Pertinent Labs: WBC 10.98, hemoglobin 10.5, platelet 213, creatinine 0.8, blood sugars range between 1:30 to 2-12 Imaging: Chest X-ray independently interpreted, no opacities Assessment and Plan: Active: Diabetic foot infection Lower extremity cellulitis Leukocytosis, improving Type 2 diabetes Chronic normocytic anemia, stable Acute hypoxic respiratory failure -Vascular surgery note reviewed, continue IV antibiotics and local wound care, no interventions at the moment -Blood cultures negative growth to date -ID following -Continue IV Zosyn -Sliding scale insulin, no changes today -Patient denies any personal history of COPD or asthma -Does have significant wheezing on exam, started on bronchodilators -If not improving, can consider steroids Chronic: Hypertension DVT ppx: Lovenox Code status: Full code Anticipated discharge place: Pending clinical course Anticipated discharge time: Pending clinical course Objective - Vital Signs Vital signs: Vital Signs Temp 97.6 F 02/22/23 08:22 Pulse 80 02/22/23 08:53 Resp 17 02/22/23 08:22 BP 175/63 02/22/23 08:22 Pulse Ox 100 02/22/23 08:22 FiO2 Intake & Output 02/21/23 02/22/23 02/22/23 18:59 06:59 18:59 Other: # Voids 2 3 # Bowel Movements 1 - Labs CBC & Chem 7: 02/22/23 05:34 02/22/23 05:34 Labs: Abnormal Lab Results - Last 24 Hours (Table) 02/21/23 02/21/23 02/22/23 Range/Units 16:54 20:11 05:34 WBC 10.98 H (4.50-10.00) X 10*3/uL RBC 3.60 L (4.10-5.20) X 10*6/uL Hgb 10.5 L (12.0-15.0) d/dL Hct 34.1 L (37.2-46.3) % MCHC 30.8 L (32.0-37.0) d/dL RDW 15.1 H (11.5-14.5) % Neutrophils # 8.80 H (1.80-7.70) X 10*3/uL Glucose (70-110) mg/dL POC Glucose (mg/dL) 148 H 212 H (70-110) mg/dL 02/22/23 02/22/23 02/22/23 Range/Units 05:34 06:10 11:37 WBC (4.50-10.00) X 10*3/uL RBC (4.10-5.20) X 10*6/uL Hgb (12.0-15.0) d/dL Hct (37.2-46.3) % MCHC (32.0-37.0) d/dL RDW (11.5-14.5) % Neutrophils # (1.80-7.70) X 10*3/uL Glucose 123 H (70-110) mg/dL POC Glucose (mg/dL) 132 H 222 H (70-110) mg/dL Microbiology - Last 24 Hours (Table) 02/20/23 22:15 Blood Culture - Preliminary Blood 02/20/23 22:00 Blood Culture - Preliminary Blood
[2023-02-22 17:04] LABS: Glucose,Whole Blood 172 mg/dL (70-110)
[2023-02-22] MEDS: lisinopriL 20 MG TAB PO SCH (21:16)
[2023-02-22 21:17] LABS: Glucose,Whole Blood 141 mg/dL (70-110)
[2023-02-22] MEDS: LACTOBACILLUS ACIDOPHILUS/PECT 1 EACH CAPSULE PO SCH (21:17)
[2023-02-22] MEDS: ASCORBIC ACID 500 MG TAB PO SCH (21:17)
[2023-02-22] MEDS: CHOLECALCIFEROL 25 MCG (1000 IU) TABLET PO SCH (21:17)
[2023-02-22] MEDS: LATANOPROST 0.005% OPHTH DROPS 2.5 ML BTL BOTH EYES SCH (21:20)
[2023-02-23] MEDS: SODIUM CHLORIDE 0.9% 1,000 ML IV SCH ×2 (02:37→21:59)
[2023-02-23] MEDS: PIPERACILLIN-TAZOBACTAM 3.375 GM in SODIUM CHLORIDE 0.9% 100 ML IVPB SCH ×3 (05:47→21:56)
[2023-02-23 06:31] LABS: Glucose,Whole Blood 177 mg/dL (70-110)
[2023-02-23] MEDS: INSULIN ASPART (NovoLOG) 100 UNIT/ML VIAL SQ SCH ×4 (07:35→21:50)
[2023-02-23] MEDS: CHOLESTYRAMINE (WITH SUGAR) 4 GM PACKET PO SCH ×3 (08:32→17:22)
[2023-02-23] MEDS: FERROUS SULFATE 325 MG TAB PO SCH (08:33)
[2023-02-23] MEDS: FAMOTIDINE 20 MG TAB PO SCH (08:33)
[2023-02-23] MEDS: ENOXAPARIN 40 MG/0.4 ML SYRINGE SQ SCH (08:33)
[2023-02-23] MEDS: CYANOCOBALAMIN 500 MCG TAB PO SCH (08:33)
[2023-02-23] MEDS: ASPIRIN 81 MG PO SCH (08:33)
[2023-02-23] MEDS: FLUTICASONE 50MCG/SPRAY NASAL 16GM EA NOSTRIL SCH ×2 (08:33→21:54)
[2023-02-23] MEDS: ESCITALOPRAM 10 MG TAB PO SCH (08:33)
[2023-02-23] MEDS: atenoloL 25 MG TAB PO SCH (08:33)
[2023-02-23] MEDS: PANTOPRAZOLE 40 MG TABLET PO SCH (08:33)
[2023-02-23] MEDS: TIMOLOL 0.5% OPHTH DROPS 5 ML BTL BOTH EYES SCH ×2 (08:34→21:51)
[2023-02-23] MEDS: BRIMONIDINE TARTRATE 0.2% DROPS 5 ML BTL BOTH EYES SCH ×3 (08:34→21:50)
[2023-02-23] MEDS: DORZOLAMIDE HCL 2% DROPS 10 ML BTL BOTH EYES SCH ×3 (08:34→21:50)
[2023-02-23 09:10] LABS: BUN/Creat Ratio 19.43 Ratio (12.00-20.00); Basophils # (A) 0.03 X 10*3/uL (0.00-0.10); Basophils % (A) 0.4 %; Blood Urea Nitrogen 13.6 mg/dL (9.0-27.0); Calcium 8.7 mg/dL (8.7-10.3); Carbon Dioxide 24.5 mmol/L (21.6-31.8); Chloride 105 mmol/L (96-109); Eosinophils # (A) 0.23 X 10*3/uL (0.04-0.35); Eosinophils % (A) 2.9 %; Glucose 165 mg/dL (70-110); HCT 31.7 % (37.2-46.3); HGB 9.5 d/dL (12.0-15.0); Lymphocytes # (A) 1.04 X 10*3/uL (0.90-5.00); MCV 96.6 FL (80.0-97.0); Mean Platelet Volume 11.1 FL (9.5-12.2); Monocytes # (A) 0.74 X 10*3/uL (0.20-1.00); Monocytes % (A) 9.3 %; NRBC Per 100 WBC 0 X 10*3/uL (0.00-0.01); Platelet Count 179 X 10*3/uL (140-440); RBC 3.28 X 10*6/uL (4.10-5.20); Sodium 139 mmol/L (135-145); WBC 7.97 X 10*3/uL (4.50-10.00)
[2023-02-23] MEDS: ALBUTEROL NEBULIZED 2.5 MG/3 ML INHALATION PRN ×2 (09:36→20:54)
[2023-02-23 12:02] LABS: Glucose,Whole Blood 139 mg/dL (70-110)
--- NOTE | 2023-02-23 14:26 | P.PN ---
Subjective Progress Note Date: 02/23/23 88-year-old female with a PMH of type II DM with peripheral vascular disease status post palpitations of bilateral third toes distal phalanx who was transferred from [facility] with the patient had presented earlier today with complaints of redness and possible infection in her feet. Bilateral f eet x-ray revealed no findings for acute osteomyelitis. Laboratory evaluation revealed an ESR of 47, sodium 138, potassium 4.0, chloride 104, CO2 23, BUN 17, creatinine 0.9, lactic acid 0.8, CRP 11.79, magnesium 1.6, WBC count 13.2 and hemoglobin 10.8. Right lower extremity venous Doppler was negative for DVT. Patient was admitted for cellulitis, started on IV Zosyn. ID and ask for surgery consulted. 02/23 Patient seen and examined at bedside. No acute events overnight. Patient reports shortness of breath and wheezing that started yesterday. She continues to reports swelling and pain in her RLE. CBC shows hemoglobin 9.5. BMP shows glucose of 165. Chest x-ray done yesterday was negative for acute changes. Wound and blood culture so far negative. Plans for swing bed at [place] on discharge likely on . She is continued on Zosyn IV. Vitals Signs: BP 175/55. HR 74. T 98.3F. 100% on 2L NC. RR 17 General: non toxic, no distress, appears at stated age, normal weight Derm: Left great toe ulcer with surrounding erythema, right second toe ulcer with surrounding erythema Head: atraumatic, normocephalic, symmetric Eyes: EOMI, no lid lag, anicteric sclera ENT: Nose and ears atraumatic Neck: No cervical lymphadenopathy, trachea midline, supple Mouth: no lip lesion, mucus membranes moist Cardiovascular: S1S2 reg, no murmur, right lower extremity 1+ pitting edema noted Lungs: Scattered end expiratory wheezing, no accessory muscle use, supplemental oxygen Abdominal: soft, nontender to palpation, no guarding Ext: muscle strength 5 out of 5 in all 4 extremities grossly, no gross muscle atrophy, no contractures, Neuro: no gross focal neuro deficits Psych: Alert, oriented, appropriate affect Diabetic foot infection Lower extremity cellulitis Leukocytosis, improving Type 2 diabetes Chronic normocytic anemia, stable Acute hypoxic respiratory failure Based on my assessment of this patient, this patient meets a moderate complexity level of care. Patient has a new diagnosis of right lower extremity cellulitis with uncertain prognosis. Diabetic foot infection: Continue Zosyn 3.375g IV Q8H. Follow WCx and BCx. ID and Vascular Sx on board. Lower extremity cellulitis: Management as above. Leukocytosis, improving Type 2 diabetes: ISS. Accuchecks ACHS. Hypoglycemic precautions. Chronic normocytic anemia, stable Acute hypoxic respiratory failure: CXR unrevealing. Albuterol neb as needed for SOB/wheezing. I have reviewed the following sap consultant notes: I have reviewed the results of the following tests: CBC, BMP, WCx, BCx as above. I have ordered the following tests: I have discussed the care of this patient with the following independent historian: I have independently interpreted the following test below: I have discussed the management of this patient with the following physician: Objective - Vital Signs Vital signs: Vital Signs Temp 98.3 F 02/23/23 07:30 Pulse 58 L 02/23/23 09:47 Resp 17 02/23/23 07:30 BP 175/77 02/23/23 07:30 Pulse Ox 94 L 02/23/23 09:36 FiO2 Intake & Output 02/22/23 02/23/23 02/23/23 18:59 06:59 18:59 Intake Total 100 Balance 100 Weight 69.853 kg Intake: Intake, IV Titration 100 Amount Piperacillin-Tazobactam 3 100 .375 gm In Sodium Chloride 0.9% 100 ml @ 25 mls/hr IVPB Q8H [facility] Rx#: [id number] Other: # Voids 2 3 - Labs CBC & Chem 7: 02/23/23 05:18 02/23/23 05:18 Labs: Abnormal Lab Results - Last 24 Hours (Table) 02/22/23 02/22/23 02/23/23 Range/Units 16:59 21:16 05:18 RBC 3.28 L (4.10-5.20) X 10*6/uL Hgb 9.5 L (12.0-15.0) d/dL Hct 31.7 L (37.2-46.3) % MCHC 30.0 L (32.0-37.0) d/dL RDW 15.0 H (11.5-14.5) % Glucose (70-110) mg/dL POC Glucose (mg/dL) 172 H 141 H (70-110) mg/dL 02/23/23 02/23/23 02/23/23 Range/Units 05:18 06:30 12:00 RBC (4.10-5.20) X 10*6/uL Hgb (12.0-15.0) d/dL Hct (37.2-46.3) % MCHC (32.0-37.0) d/dL RDW (11.5-14.5) % Glucose 165 H (70-110) mg/dL POC Glucose (mg/dL) 177 H 139 H (70-110) mg/dL Microbiology - Last 24 Hours (Table) 02/20/23 22:15 Blood Culture - Preliminary Blood 02/20/23 22:00 Blood Culture - Preliminary Blood 02/21/23 11:50 Gram Stain - Preliminary Toe - Left First
[2023-02-23 17:10] LABS: Glucose,Whole Blood 214 mg/dL (70-110)
[2023-02-23 20:34] LABS: Glucose,Whole Blood 184 mg/dL (70-110)
[2023-02-23] MEDS: LACTOBACILLUS ACIDOPHILUS/PECT 1 EACH CAPSULE PO SCH (20:43)
[2023-02-23] MEDS: CHOLECALCIFEROL 25 MCG (1000 IU) TABLET PO SCH (20:43)
[2023-02-23] MEDS: lisinopriL 20 MG TAB PO SCH (20:43)
[2023-02-23] MEDS: ASCORBIC ACID 500 MG TAB PO SCH (20:43)
[2023-02-23] MEDS: LATANOPROST 0.005% OPHTH DROPS 2.5 ML BTL BOTH EYES SCH (21:51)
[2023-02-24] MEDS: INSULIN ASPART (NovoLOG) 100 UNIT/ML VIAL SQ SCH ×4 (05:59→21:09)
[2023-02-24 06:00] LABS: Glucose,Whole Blood 145 mg/dL (70-110)
[2023-02-24] MEDS: PIPERACILLIN-TAZOBACTAM 3.375 GM in SODIUM CHLORIDE 0.9% 100 ML IVPB SCH ×3 (06:00→21:13)
[2023-02-24] MEDS: ALBUTEROL NEBULIZED 2.5 MG/3 ML INHALATION PRN (08:11)
[2023-02-24] MEDS: ENOXAPARIN 40 MG/0.4 ML SYRINGE SQ SCH (08:43)
[2023-02-24] MEDS: ASPIRIN 81 MG PO SCH (08:43)
[2023-02-24] MEDS: FERROUS SULFATE 325 MG TAB PO SCH (08:43)
[2023-02-24] MEDS: ESCITALOPRAM 10 MG TAB PO SCH (08:43)
[2023-02-24] MEDS: atenoloL 25 MG TAB PO SCH (08:43)
[2023-02-24] MEDS: PANTOPRAZOLE 40 MG TABLET PO SCH (08:43)
[2023-02-24] MEDS: FAMOTIDINE 20 MG TAB PO SCH (08:43)
[2023-02-24] MEDS: CHOLESTYRAMINE (WITH SUGAR) 4 GM PACKET PO SCH ×3 (08:43→17:50)
[2023-02-24] MEDS: CYANOCOBALAMIN 500 MCG TAB PO SCH (08:43)
[2023-02-24] MEDS: FLUTICASONE 50MCG/SPRAY NASAL 16GM EA NOSTRIL SCH ×2 (08:46→21:09)
[2023-02-24] MEDS: TIMOLOL 0.5% OPHTH DROPS 5 ML BTL BOTH EYES SCH ×2 (08:47→21:12)
[2023-02-24] MEDS: DORZOLAMIDE HCL 2% DROPS 10 ML BTL BOTH EYES SCH ×3 (08:48→21:08)
[2023-02-24] MEDS: BRIMONIDINE TARTRATE 0.2% DROPS 5 ML BTL BOTH EYES SCH ×3 (08:48→21:16)
--- NOTE | 2023-02-24 10:38 | P.PN ---
Subjective Progress Note Date: 02/22/23 Principal diagnosis: Left big toe and right second toe diabetic foot wound and cellulitis Patient is 88 year female with a past medical history. For diabetes mellitus peripheral vascular disease bilateral third toe distal fax amputation presented to hospital with infected callus blister to the left big toe and right second toe status post debridement. On today's evaluation that is 02/22/2023, the patient denies having any fever or chills, the patient is breathing comfortably on room air HEENT to the left big toe and right second toe is currently controlled no chest pain or shortness of cough no abdominal pain or diarrhea. Patient white count is 10.98, creatinine 0.8 local cultures currently pending Objective - Vital Signs Vital signs: Vital Signs Temp 97.6 F 02/22/23 08:22 Pulse 80 02/22/23 08:53 Resp 17 02/22/23 08:22 BP 175/63 02/22/23 08:22 Pulse Ox 100 02/22/23 08:22 FiO2 Intake & Output 02/21/23 02/22/23 02/22/23 18:59 06:59 18:59 Other: # Voids 2 3 # Bowel Movements 1 - Exam GENERAL DESCRIPTION: An elderly female lying in bed in no distress RESPIRATORY SYSTEM: Unlabored breathing , decreased breath sounds at bases HEART: S1 S2 regular rate and rhythm , ABDOMEN: Soft , no tenderness EXTREMITIES: Left big toe and right second toe are currently dressed no drainage on the dressing - Labs CBC & Chem 7: 02/23/23 05:18 02/23/23 05:18 Labs: Abnormal Lab Results - Last 24 Hours (Table) 02/21/23 02/21/23 02/22/23 Range/Units 16:54 20:11 05:34 WBC 10.98 H (4.50-10.00) X 10*3/uL RBC 3.60 L (4.10-5.20) X 10*6/uL Hgb 10.5 L (12.0-15.0) d/dL Hct 34.1 L (37.2-46.3) % MCHC 30.8 L (32.0-37.0) d/dL RDW 15.1 H (11.5-14.5) % Neutrophils # 8.80 H (1.80-7.70) X 10*3/uL Glucose (70-110) mg/dL POC Glucose (mg/dL) 148 H 212 H (70-110) mg/dL 02/22/23 02/22/23 02/22/23 Range/Units 05:34 06:10 11:37 WBC (4.50-10.00) X 10*3/uL RBC (4.10-5.20) X 10*6/uL Hgb (12.0-15.0) d/dL Hct (37.2-46.3) % MCHC (32.0-37.0) d/dL RDW (11.5-14.5) % Neutrophils # (1.80-7.70) X 10*3/uL Glucose 123 H (70-110) mg/dL POC Glucose (mg/dL) 132 H 222 H (70-110) mg/dL Assessment and Plan (1) Cellulitis of toe of left foot Current Visit: Yes Status: Acute Code(s): L03.032 - CELLULITIS OF LEFT TOE SNOMED Code(s): 06298270 (2) Cellulitis of toe of right foot Current Visit: Yes Status: Acute Code(s): L03.031 - CELLULITIS OF RIGHT TOE SNOMED Code(s): 54377661 (3) Diabetic foot ulcer associated with diabetes mellitus due to underlying condition Current Visit: Yes Status: Acute Code(s): E08.621 - DIABETES MELLITUS DUE TO UNDERLYING CONDITION W FOOT ULCER; L97.509 - NON-PRESSURE CHRONIC ULCER OTH PRT UNSP FOOT W UNSP SEVERITY SNOMED Code(s): 284420623 Plan: 1patient with diabetic foot infection involving the left big toe with likely infected callus/bullae that has been debrided at the bedside by vascular surgery and also her right second toe will need to cover for the polymicrobial rica usually associated with diabetic foot infection. 2patient to continue Zosyn 3.375 g every 8 hours while waiting for the culture to finalize to determine her discharge antibiotics . Dictation was produced using [employer] software. please excuse any grammatical, word or spelling errors. Time with Patient: Less than 30
--- NOTE | 2023-02-24 10:40 | P.PN ---
Subjective Progress Note Date: 02/23/23 Principal diagnosis: Left big toe and right second toe diabetic foot wound and cellulitis Patient is 88 year female with a past medical history. For diabetes mellitus peripheral vascular disease bilateral third toe distal fax amputation presented to hospital with infected callus blister to the left big toe and right second toe status post debridement. On today's evaluation that is 02/23/2023, the patient remains to be afebrile, the patient is breathing comfortably on room air, the patient pain to the left big toe and right second toe is currently controlled, the patient denies chest pain or shortness of cough no abdominal pain or diarrhea. Patient white count is 7.97, creatinine 0.7, blood culture so far negative and local cultures currently pending Objective - Vital Signs Vital signs: Vital Signs Temp 98.3 F 02/23/23 07:30 Pulse 58 L 02/23/23 09:47 Resp 17 02/23/23 07:30 BP 175/77 02/23/23 07:30 Pulse Ox 94 L 02/23/23 09:36 FiO2 Intake & Output 02/22/23 02/23/23 02/23/23 18:59 06:59 18:59 Intake Total 100 Balance 100 Weight 69.853 kg Intake: Intake, IV Titration 100 Amount Piperacillin-Tazobactam 3 100 .375 gm In Sodium Chloride 0.9% 100 ml @ 25 mls/hr IVPB Q8H [facility] Rx#: [id number] Other: # Voids 2 3 - Exam GENERAL DESCRIPTION: An elderly female lying in bed in no distress RESPIRATORY SYSTEM: Unlabored breathing , decreased breath sounds at bases HEART: S1 S2 regular rate and rhythm , ABDOMEN: Soft , no tenderness EXTREMITIES: Left big toe and right second toe are currently dressed no drainage on the dressing - Labs CBC & Chem 7: 02/23/23 05:18 02/23/23 05:18 Labs: Abnormal Lab Results - Last 24 Hours (Table) 02/22/23 02/22/23 02/23/23 Range/Units 16:59 21:16 05:18 RBC 3.28 L (4.10-5.20) X 10*6/uL Hgb 9.5 L (12.0-15.0) d/dL Hct 31.7 L (37.2-46.3) % MCHC 30.0 L (32.0-37.0) d/dL RDW 15.0 H (11.5-14.5) % Glucose (70-110) mg/dL POC Glucose (mg/dL) 172 H 141 H (70-110) mg/dL 02/23/23 02/23/23 02/23/23 Range/Units 05:18 06:30 12:00 RBC (4.10-5.20) X 10*6/uL Hgb (12.0-15.0) d/dL Hct (37.2-46.3) % MCHC (32.0-37.0) d/dL RDW (11.5-14.5) % Glucose 165 H (70-110) mg/dL POC Glucose (mg/dL) 177 H 139 H (70-110) mg/dL Microbiology - Last 24 Hours (Table) 02/20/23 22:15 Blood Culture - Preliminary Blood 02/20/23 22:00 Blood Culture - Preliminary Blood 02/21/23 11:50 Gram Stain - Preliminary Toe - Left First Assessment and Plan (1) Cellulitis of toe of left foot Current Visit: Yes Status: Acute Code(s): L03.032 - CELLULITIS OF LEFT TOE SNOMED Code(s): 69805878 (2) Cellulitis of toe of right foot Current Visit: Yes Status: Acute Code(s): L03.031 - CELLULITIS OF RIGHT TOE SNOMED Code(s): 08048117 (3) Diabetic foot ulcer associated with diabetes mellitus due to underlying condition Current Visit: Yes Status: Acute Code(s): E08.621 - DIABETES MELLITUS DUE TO UNDERLYING CONDITION W FOOT ULCER; L97.509 - NON-PRESSURE CHRONIC ULCER OTH PRT UNSP FOOT W UNSP SEVERITY SNOMED Code(s): 705393208 Plan: 1patient with diabetic foot infection involving the left big toe with likely infected callus/bullae that has been debrided at the bedside by vascular surgery and also her right second toe will need to cover for the polymicrobial rica usually associated with diabetic foot infection. 2patient seemed to have shown clinical improvement we will continue the patient on Zosyn 3.375 g every 8 hours while waiting for the culture to finalize to determine her discharge antibiotics . Questions concerned were answered Dictation was produced using dragon dictation software. please excuse any grammatical, word or spelling errors. Time with Patient: Less than 30
[2023-02-24 12:03] LABS: Glucose,Whole Blood 220 mg/dL (70-110)
--- NOTE | 2023-02-24 13:37 | P.PN ---
Subjective Progress Note Date: 02/24/23 88-year-old female with a PMH of type II DM with peripheral vascular disease status post palpitations of bilateral third toes distal phalanx who was transferred from [facility] with the patient had presented earlier today with complaints of redness and possible infection in her feet. Bilateral f eet x-ray revealed no findings for acute osteomyelitis. Laboratory evaluation revealed an ESR of 47, sodium 138, potassium 4.0, chloride 104, CO2 23, BUN 17, creatinine 0.9, lactic acid 0.8, CRP 11.79, magnesium 1.6, WBC count 13.2 and hemoglobin 10.8. Right lower extremity venous Doppler was negative for DVT. Patient was admitted for cellulitis, started on IV Zosyn. ID and ask for surgery consulted. 02/23 Patient seen and examined at bedside. No acute events overnight. Patient reports shortness of breath and wheezing that started yesterday. She continues to reports swelling and pain in her RLE. CBC shows hemoglobin 9.5. BMP shows glucose of 165. Chest x-ray done yesterday was negative for acute changes. Wound and blood culture so far negative. Plans for swing bed at [place] on discharge likely on . She is continued on Zosyn IV. 02/24 Patient was seen and examined. No acute events overnight. Patient reports no issues with breathing. Wound and blood culture so far negative. Plans for swing bed at [place] on discharge likely on . She is continued on Zosyn IV. Vitals Signs: BP 155/53. HR 62. T 97.9F. 91% on RA. RR 20 General: non toxic, no distress, appears at stated age, normal weight Derm: Left great toe ulcer with surrounding erythema, right second toe ulcer with surrounding erythema Head: atraumatic, normocephalic, symmetric Eyes: EOMI, no lid lag, anicteric sclera ENT: Nose and ears atraumatic Neck: No cervical lymphadenopathy, trachea midline, supple Cardiovascular: S1S2 reg, no murmur, right lower extremity 1+ pitting edema noted Lungs: Decreased BS BL, no accessory muscle use, supplemental oxygen Abdominal: soft, nontender to palpation, no guarding Ext: muscle strength 5 out of 5 in all 4 extremities grossly, no gross muscle atrophy, no contractures, Neuro: no gross focal neuro deficits Psych: Alert, oriented, appropriate affect Diabetic foot infection Lower extremity cellulitis Leukocytosis, improving Type 2 diabetes Chronic normocytic anemia, stable Acute hypoxic respiratory failure Based on my assessment of this patient, this patient meets a moderate complexity level of care. Patient has a new diagnosis of right lower extremity cellulitis with uncertain prognosis. Diabetic foot infection: Continue Zosyn 3.375g IV Q8H. Follow WCx and BCx. ID and Vascular Sx on board. Lower extremity cellulitis: Management as above. Leukocytosis, improving Type 2 diabetes: ISS. Accuchecks ACHS. Hypoglycemic precautions. Chronic normocytic anemia, stable Acute hypoxic respiratory failure: CXR unrevealing. Albuterol neb as needed for SOB/wheezing. I have reviewed the following case consultant notes: I have reviewed the results of the following tests: POC glucose 145-220 over the past 24H. WCx, BCx as above. I have ordered the following tests: I have discussed the care of this patient with the following independent istorian: I have independently interpreted the following test below: I have discussed the management of this patient with the following physician: Objective - Vital Signs Vital signs: Vital Signs Temp 97.9 F 02/24/23 07:08 Pulse 60 02/24/23 08:29 Resp 20 02/24/23 07:08 BP 155/53 02/24/23 07:08 Pulse Ox 91 L 02/24/23 07:08 FiO2 Intake & Output 02/23/23 02/24/23 02/24/23 18:59 06:59 18:59 Intake Total 100 260 Balance 100 260 Intake: Intake, IV Titration 100 260 Amount Piperacillin-Tazobactam 3 100 100 .375 gm In Sodium Chloride 0.9% 100 ml @ 25 mls/hr IVPB Q8H [facility] Rx#: [id number] Sodium Chloride 0.9% 1, 160 000 ml @ 20 mls/hr IV . Q24H [facility] Rx#:[id number] Other: # Voids 3 # Bowel Movements 1 - Labs CBC & Chem 7: 02/23/23 05:18 02/23/23 05:18 Labs: Abnormal Lab Results - Last 24 Hours (Table) 02/23/23 02/23/23 02/24/23 Range/Units 17:09 20:33 05:59 POC Glucose (mg/dL) 214 H 184 H 145 H (70-110) mg/dL 02/24/23 Range/Units 12:02 POC Glucose (mg/dL) 220 H (70-110) mg/dL Microbiology - Last 24 Hours (Table) 02/20/23 22:15 Blood Culture - Preliminary Blood 02/20/23 22:00 Blood Culture - Preliminary Blood 02/21/23 11:50 Gram Stain - Final Toe - Left First Wound Culture - Final
[2023-02-24] MEDS: ACETAMINOPHEN TAB 325 MG TAB PO PRN (15:10)
[2023-02-24 16:39] LABS: Glucose,Whole Blood 172 mg/dL (70-110)
[2023-02-24 20:51] LABS: Glucose,Whole Blood 184 mg/dL (70-110)
[2023-02-24] MEDS: LATANOPROST 0.005% OPHTH DROPS 2.5 ML BTL BOTH EYES SCH (21:10)
[2023-02-24] MEDS: ASCORBIC ACID 500 MG TAB PO SCH (21:11)
[2023-02-24] MEDS: lisinopriL 20 MG TAB PO SCH (21:11)
[2023-02-24] MEDS: CHOLECALCIFEROL 25 MCG (1000 IU) TABLET PO SCH (21:11)
[2023-02-24] MEDS: LACTOBACILLUS ACIDOPHILUS/PECT 1 EACH CAPSULE PO SCH (21:11)
--- NOTE | 2023-02-24 21:57 | P.PN ---
Subjective Progress Note Date: 02/24/23 Principal diagnosis: Left big toe and right second toe diabetic foot wound and cellulitis Patient is 88 year female with a past medical history. For diabetes mellitus peripheral vascular disease bilateral third toe distal fax amputation presented to hospital with infected callus blister to the left big toe and right second toe status post debridement. On today's evaluation that is 02/24/2023 the patient remains to be afebrile, the patient is breathing comfortably no chest pain no shortness of breath or cough no nausea vomiting no abdominal pain or pain to left big toe right second toe area. No labs were drawn today, the patient left big toe cultures came back negative blood culture has been negative Objective - Vital Signs Vital signs: Vital Signs Temp 97.9 F 02/24/23 07:08 Pulse 60 02/24/23 08:29 Resp 20 02/24/23 07:08 BP 155/53 02/24/23 07:08 Pulse Ox 91 L 02/24/23 07:08 FiO2 Intake & Output 02/23/23 02/24/23 02/24/23 18:59 06:59 18:59 Intake Total 100 260 Balance 100 260 Intake: Intake, IV Titration 100 260 Amount Piperacillin-Tazobactam 3 100 100 .375 gm In Sodium Chloride 0.9% 100 ml @ 25 mls/hr IVPB Q8H [facility] Rx#: [id number] Sodium Chloride 0.9% 1, 160 000 ml @ 20 mls/hr IV . Q24H [facility] Rx#:[id number] Other: # Voids 3 # Bowel Movements 1 - Exam GENERAL DESCRIPTION: An elderly female lying in bed in no distress RESPIRATORY SYSTEM: Unlabored breathing , decreased breath sounds at bases HEART: S1 S2 regular rate and rhythm , ABDOMEN: Soft , no tenderness EXTREMITIES: Left big toe and right second toe swelling and redness has decreased - Labs CBC & Chem 7: 02/23/23 05:18 02/23/23 05:18 Labs: Abnormal Lab Results - Last 24 Hours (Table) 02/23/23 02/23/23 02/23/23 Range/Units 12:00 17:09 20:33 POC Glucose (mg/dL) 139 H 214 H 184 H (70-110) mg/dL 02/24/23 Range/Units 05:59 POC Glucose (mg/dL) 145 H (70-110) mg/dL Microbiology - Last 24 Hours (Table) 02/21/23 11:50 Gram Stain - Final Toe - Left First Wound Culture - Final 02/20/23 22:15 Blood Culture - Preliminary Blood 02/20/23 22:00 Blood Culture - Preliminary Blood Assessment and Plan (1) Cellulitis of toe of left foot Current Visit: Yes Status: Acute Code(s): L03.032 - CELLULITIS OF LEFT TOE SNOMED Code(s): 71516970 (2) Cellulitis of toe of right foot Current Visit: Yes Status: Acute Code(s): L03.031 - CELLULITIS OF RIGHT TOE SNOMED Code(s): 30853002 (3) Diabetic foot ulcer associated with diabetes mellitus due to underlying condition Current Visit: Yes Status: Acute Code(s): E08.621 - DIABETES MELLITUS DUE TO UNDERLYING CONDITION W FOOT ULCER; L97.509 - NON-PRESSURE CHRONIC ULCER OTH PRT UNSP FOOT W UNSP SEVERITY SNOMED Code(s): 576193421 Plan: 1patient with diabetic foot infection involving the left big toe with likely infected callus/bullae that has been debrided at the bedside by vascular surgery and also her right second toe will need to cover for the polymicrobial rica usually associated with diabetic foot infection. 2patient seemed to have shown clinical improvement Local culture has been negative for resistant presently blood culture has been negative patient to continue Zosyn however will be able to finish therapy with oral Augmentin and local wound care with Aquacel silver dressing prescription sent to the pharmacy Dictation was produced using [employer] dictation software. please excuse any grammatical, word or spelling errors. Time with Patient: Less than 30
[2023-02-24] MEDS: SODIUM CHLORIDE 0.9% 1,000 ML IV SCH (23:29)
[2023-02-25] MEDS: PIPERACILLIN-TAZOBACTAM 3.375 GM in SODIUM CHLORIDE 0.9% 100 ML IVPB SCH ×2 (05:22→11:52)
[2023-02-25 06:10] LABS: Glucose,Whole Blood 178 mg/dL (70-110)
[2023-02-25] MEDS: INSULIN ASPART (NovoLOG) 100 UNIT/ML VIAL SQ SCH ×2 (06:33→11:48)
[2023-02-25 07:31] VITALS: BP 165/77; RESP 16; TEMP 98
[2023-02-25] MEDS: CHOLESTYRAMINE (WITH SUGAR) 4 GM PACKET PO SCH ×2 (09:07→11:51)
[2023-02-25] MEDS: ENOXAPARIN 40 MG/0.4 ML SYRINGE SQ SCH (09:07)
[2023-02-25] MEDS: PANTOPRAZOLE 40 MG TABLET PO SCH (09:07)
[2023-02-25] MEDS: FERROUS SULFATE 325 MG TAB PO SCH (09:08)
[2023-02-25] MEDS: FLUTICASONE 50MCG/SPRAY NASAL 16GM EA NOSTRIL SCH (09:08)
[2023-02-25] MEDS: atenoloL 25 MG TAB PO SCH (09:08)
[2023-02-25] MEDS: DORZOLAMIDE HCL 2% DROPS 10 ML BTL BOTH EYES SCH (09:08)
[2023-02-25] MEDS: CYANOCOBALAMIN 500 MCG TAB PO SCH (09:08)
[2023-02-25] MEDS: ASPIRIN 81 MG PO SCH (09:08)
[2023-02-25] MEDS: FAMOTIDINE 20 MG TAB PO SCH (09:08)
[2023-02-25] MEDS: TIMOLOL 0.5% OPHTH DROPS 5 ML BTL BOTH EYES SCH (09:10)
[2023-02-25] MEDS: BRIMONIDINE TARTRATE 0.2% DROPS 5 ML BTL BOTH EYES SCH (09:30)
[2023-02-25] MEDS: ESCITALOPRAM 10 MG TAB PO SCH (09:33)
[2023-02-25 10:18] VITALS: PULSE 64
[2023-02-25 11:49] LABS: Glucose,Whole Blood 145 mg/dL (70-110)
--- NOTE | 2023-02-25 12:43 | P.DS ---
Providers Date of admission: 02/22/23 11:45 Expected date of discharge: 02/25/23 Attending physician: Silvano Delarosa MD Consults: 02/20/23 21:46 Consult Physician Routine Consulting Provider: Hannah Dugan Consult Reason/Comments: Diabetic foot infection Do you want consulting provider notified?: Yes Primary care physician: Germaine Lim, [facility] Hospital Course: 88-year-old female with a PMH of type II DM with peripheral vascular disease status post palpitations of bilateral third toes distal phalanx who was transferred from [facility] with the patient had presented earlier today with complaints of redness and possible infection in her feet. Bilateral feet x-ray revealed no findings for acute osteomyelitis. Laboratory evaluation revealed an ESR of 47, sodium 138, potassium 4.0, chloride 104, CO2 23, BUN 17, creatinine 0.9, lactic acid 0.8, CRP 11.79, magnesium 1.6, WBC count 13.2 and hemoglobin 10.8. Right lower extremity venous Doppler was negative for DVT. Patient was admitted for cellulitis, started on IV Zosyn. ID and ask for surgery consulted. 02/23 Patient seen and examined at bedside. No acute events overnight. Patient reports shortness of breath and wheezing that started yesterday. She continues to reports swelling and pain in her RLE. CBC shows hemoglobin 9.5. BMP shows glucose of 165. Chest x-ray done yesterday was negative for acute changes. Wound and blood culture so far negative. Plans for swing bed at [place] on discharge likely on . She is continued on Zosyn IV. 02/24 Patient was seen and examined. No acute events overnight. Patient reports no issues with breathing. Wound and blood culture so far negative. Plans for swing bed at [place] on discharge likely on . She is continued on Zosyn IV. 02/25 Patient was seen and examined. No acute events overnight. She has no complaints. Accepted to swing bed at [place]. Plans for discharge today. She will be discharged with Augmentin by mouth for 10 days. Given appointment with PCP within 1-2 days, Dr. Davidson as needed and Wound Center within 1 week of discharge. Vitals Signs: BP 165/77. HR 77. T 98F. 90% on RA. RR 16 Pertinent studies include venous Doppler, chest x-ray. General: non toxic, no distress, appears at stated age, normal weight Derm: Left great toe ulcer with surrounding erythema, right second toe ulcer with surrounding erythema Head: atraumatic, normocephalic, symmetric Eyes: EOMI, no lid lag, anicteric sclera ENT: Nose and ears atraumatic Neck: No cervical lymphadenopathy, trachea midline, supple Cardiovascular: S1S2 reg, no murmur, right lower extremity 1+ pitting edema noted Lungs: Decreased BS BL, no accessory muscle use, supplemental oxygen Abdominal: soft, nontender to palpation, no guarding Ext: muscle strength 5 out of 5 in all 4 extremities grossly, no gross muscle atrophy, no contractures, Neuro: no gross focal neuro deficits Psych: Alert, oriented, appropriate affect Discharge Diagnosis: Diabetic foot infection Lower extremity cellulitis Leukocytosis, improving Type 2 diabetes Chronic normocytic anemia, stable Acute hypoxic respiratory failure This complex discharge took 35 minutes to complete. Patient Condition at Discharge: Stable Plan - Discharge Summary Discharge Rx Participant: No New Discharge Prescriptions: New Famotidine [Pepcid] 20 mg PO DAILY tab Albuterol Nebulized [Ventolin Nebulized] 2.5 mg INHALATION RT-Q6H PRN ml PRN Reason: Shortness Of Breath Or Wheezing Amoxic-Pot Clav 875-125Mg [Augmentin 875-125] 1 tab PO BID 10 Days #20 tab Acetaminophen Tab [Tylenol] 650 mg PO Q6HR PRN tab PRN Reason: Mild Pain Or Fever > 100.5 Continue Timolol 0.5% Ophth Soln [Timoptic 0.5% Ophth Soln] 1 drop BOTH EYES BID Latanoprost [Xalatan 0.005%] 1 drop BOTH EYES HS Glimepiride [Amaryl] 1 mg PO DAILY Ascorbic Acid [Vitamin C] 1,000 mg PO HS Cholecalciferol [Vitamin D3 (25 Mcg = 1000 Iu)] 50 mcg PO HS lisinopriL [Zestril] 20 mg PO HS Cyanocobalamin (Vitamin B-12) [Vitamin B-12] 5,000 mcg PO DAILY Cranberry Fruit Concentrate [Azo Cranberry] 250 mg PO BID atenoloL [Tenormin] 25 mg PO DAILY Pioglitazone [Actos] 15 mg PO DAILY Turmeric Root Extract [Turmeric] 1,053 mg PO BID Omeprazole 20 mg PO DAILY Brinzolamide/Brimonidine Tart [Simbrinza 1%-0.2% Eye Drops] 1 drop BOTH EYES TID Lactobacillus Acidophilus [Florajen Acidophilus] 1 cap PO HS Fluticasone Nasal [place] [Flonase Nasal [place]] 1 spray EA NOSTRIL BID Ferrous Sulfate [Iron (65 MG Elemental)] 325 mg PO DAILY Escitalopram Oxalate [Lexapro] 10 mg PO DAILY Cholestyramine/Aspartame [Cholestyramine Light Packet] 4 gm PO TID-W/MEALS Aspirin [Adult Low Dose Aspirin EC] 81 mg PO DAILY Discharge Medication List Glimepiride [Amaryl] 1 mg PO DAILY 12/06/18 [History] Latanoprost [Xalatan 0.005%] 1 drop BOTH EYES HS 12/06/18 [History] Timolol 0.5% Ophth Soln [Timoptic 0.5% Ophth Soln] 1 drop BOTH EYES BID 12/06/18 [History] Ascorbic Acid [Vitamin C] 1,000 mg PO HS 01/22/21 [History] Aspirin [Adult Low Dose Aspirin EC] 81 mg PO DAILY 02/20/23 [History] Brinzolamide/Brimonidine Tart [Simbrinza 1%-0.2% Eye Drops] 1 drop BOTH EYES TID 02/20/23 [History] Cholecalciferol [Vitamin D3 (25 Mcg = 1000 Iu)] 50 mcg PO HS 02/20/23 [History] Cholestyramine/Aspartame [Cholestyramine Light Packet] 4 gm PO TID-W/MEALS 02/20/23 [History] Cranberry Fruit Concentrate [Azo Cranberry] 250 mg PO BID 02/20/23 [History] Cyanocobalamin (Vitamin B-12) [Vitamin B-12] 5,000 mcg PO DAILY 02/20/23 [History] Escitalopram Oxalate [Lexapro] 10 mg PO DAILY 02/20/23 [History] Ferrous Sulfate [Iron (65 MG Elemental)] 325 mg PO DAILY 02/20/23 [History] Fluticasone Nasal [place] [Flonase Nasal [place]] 1 spray EA NOSTRIL BID 02/20/23 [History] Lactobacillus Acidophilus [Florajen Acidophilus] 1 cap PO HS 02/20/23 [History] Omeprazole 20 mg PO DAILY 02/20/23 [History] Pioglitazone [Actos] 15 mg PO DAILY 02/20/23 [History] Turmeric Root Extract [Turmeric] 1,053 mg PO BID 02/20/23 [History] atenoloL [Tenormin] 25 mg PO DAILY 02/20/23 [History] lisinopriL [Zestril] 20 mg PO HS 02/20/23 [History] Amoxic-Pot Clav 875-125Mg [Augmentin 875-125] 1 tab PO BID 10 Days #20 tab 02/24/23 [Rx] Acetaminophen Tab [Tylenol] 650 mg PO Q6HR PRN tab 02/25/23 [Rx] Albuterol Nebulized [Ventolin Nebulized] 2.5 mg INHALATION RT-Q6H PRN ml 02/25/23 [Rx] Famotidine [Pepcid] 20 mg PO DAILY tab 02/25/23 [Rx] Follow up Appointment(s)/Referral(s): Ángela Davidson DO [STAFF PHYSICIAN] - As Needed None,Stated [REFERRING] - 1-2 days W[facility] [NON-STAFF] - 1 Week Patient Instructions/Handouts: Cellulitis (GEN), Incision and Drainage (DC) Discharge Disposition: TRANSFER TO SNF/ECF
--- NOTE | 2023-03-04 16:00 | P.PN ---
Subjective Progress Note Date: 02/25/23 Principal diagnosis: Left big toe and right second toe diabetic foot wound and cellulitis Patient is 88 year female with a past medical history. For diabetes mellitus peripheral vascular disease bilateral third toe distal fax amputation presented to hospital with infected callus blister to the left big toe and right second toe status post debridement. On today's evaluation that is 02/25/2023 the patient denies any fever or any chills, the patient is breathing comfortably on room air, the patient denies chest pain no shortness of breath or cough no nausea vomiting no abdominal pain or pain to left big toe right second toe area. No labs were drawn today, the patient left big toe cultures remains to be negative blood culture has been negative Objective - Vital Signs Vital signs: Vital Signs Temp 98.0 F 02/25/23 07:01 Pulse 64 02/25/23 10:17 Resp 16 02/25/23 07:01 BP 165/77 02/25/23 07:01 Pulse Ox 92 L 02/25/23 10:17 FiO2 21 02/25/23 09:19 Intake & Output 02/24/23 02/25/23 02/25/23 18:59 06:59 18:59 Intake Total 260 Balance 260 Weight 69.853 kg Intake: Intake, IV Titration 260 Amount Piperacillin-Tazobactam 3 100 .375 gm In Sodium Chloride 0.9% 100 ml @ 25 mls/hr IVPB Q8H [facility] Rx#: [id number] Sodium Chloride 0.9% 1, 160 000 ml @ 20 mls/hr IV . Q24H [facility] Rx#:[id number] Other: # Voids 3 - Exam GENERAL DESCRIPTION: An elderly female lying in bed in no distress RESPIRATORY SYSTEM: Unlabored breathing , decreased breath sounds at bases HEART: S1 S2 regular rate and rhythm , ABDOMEN: Soft , no tenderness EXTREMITIES: Left big toe and right second toe swelling and redness has decreased - Labs CBC & Chem 7: 02/23/23 05:18 02/23/23 05:18 Labs: Abnormal Lab Results - Last 24 Hours (Table) 02/24/23 02/24/23 02/25/23 Range/Units 16:37 20:50 06:09 POC Glucose (mg/dL) 172 H 184 H 178 H (70-110) mg/dL 08/17/23 Range/Units 11:48 POC Glucose (mg/dL) 145 H (70-110) mg/dL Microbiology - Last 24 Hours (Table) 02/20/23 22:15 Blood Culture - Preliminary Blood 02/20/23 22:00 Blood Culture - Preliminary Blood Assessment and Plan (1) Cellulitis of toe of left foot Status: Acute Code(s): L03.032 - CELLULITIS OF LEFT TOE SNOMED Code(s): 63003896 (2) Cellulitis of toe of right foot Status: Acute Code(s): L03.031 - CELLULITIS OF RIGHT TOE SNOMED Code(s): 47303317 (3) Diabetic foot ulcer associated with diabetes mellitus due to underlying condition Status: Acute Code(s): E08.621 - DIABETES MELLITUS DUE TO UNDERLYING CONDITION W FOOT ULCER; L97.509 - NON-PRESSURE CHRONIC ULCER OTH PRT UNSP FOOT W UNSP SEVERITY SNOMED Code(s): 279221157 Plan: 1patient with diabetic foot infection involving the left big toe with likely infected callus/bullae that has been debrided at the bedside by vascular surgery and also her right second toe will need to cover for the polymicrobial rica usually associated with diabetic foot infection. 2patient has shown clinical improvement Local culture has been negative for resistant presently blood culture has been negative patient will finish therapy with oral Augmentin and local wound care with Aquacel silver dressing and close outpatient follow-up Dictation was produced using [employer] dictation software. please excuse any grammatical, word or spelling errors. Time with Patient: Less than 30
== END 2023-02-25 13:12 | DRG 622 ==
LOC: EC 20:45 → 4SSUR 21:46 → OBSVTOIN 02-22 11:45
PROVIDERS: ADMIT Internal Medicine; ATTEND Internal Medicine
PROC: 0JBR0ZZ Excision of Left Foot Subcutaneous Tissue and Fascia, Open Approach (ICD-10-PCS; principal; 2023-02-21)
PROC: 0HBMXZZ Excision of Right Foot Skin, External Approach (ICD-10-PCS; principal; 2023-02-21)
PROC: 0Y9N0ZZ Drainage of Left Foot, Open Approach (ICD-10-PCS; principal; 2023-02-21)
PROC: 0Y9M0ZZ Drainage of Right Foot, Open Approach (ICD-10-PCS; principal; 2023-02-21)
PROC: 0HBNXZZ Excision of Left Foot Skin, External Approach (ICD-10-PCS; principal; 2023-02-21)
DX: E11.621 Type 2 diabetes mellitus with foot ulcer (principal); J96.01 Acute respiratory failure with hypoxia; L97.522 Non-pressure chronic ulcer of other part of left foot with fat layer exposed; L97.512 Non-pressure chronic ulcer of other part of right foot with fat layer exposed; E11.51 Type 2 diabetes mellitus with diabetic peripheral angiopathy without gangrene; L97.521 Non-pressure chronic ulcer of other part of left foot limited to breakdown of skin; D64.9 Anemia, unspecified; I10 Essential (primary) hypertension; L03.032 Cellulitis of left toe; S90.422A Blister (nonthermal), left great toe, initial encounter; L03.031 Cellulitis of right toe; K21.9 Gastro-esophageal reflux disease without esophagitis; R60.0 Localized edema; R53.81 Other malaise; H40.9 Unspecified glaucoma; M19.90 Unspecified osteoarthritis, unspecified site; Z85.3 Personal history of malignant neoplasm of breast; Z89.422 Acquired absence of other left toe(s); Z89.421 Acquired absence of other right toe(s); Z98.1 Arthrodesis status; Z79.84 Long term (current) use of oral hypoglycemic drugs; Z79.82 Long term (current) use of aspirin; Z88.1 Allergy status to other antibiotic agents; Z92.3 Personal history of irradiation; Z79.899 Other long term (current) drug therapy; Z88.8 Allergy status to other drugs, medicaments and biological substances; E11.628 Type 2 diabetes mellitus with other skin complications; E11.42 Type 2 diabetes mellitus with diabetic polyneuropathy
CPT/HCPCS: 71045; 80048; 85025; 87040; 87070; 87075; 87205; 94640; 94760; 99285

== ENCOUNTER → 2024-03-17 | Outpatient (CLI) | payer MEDICARE, BC ==
[2024-03-17 11:04] VITALS: BP 177/81; PULSE 63; RESP 16; TEMP 97.8
--- NOTE | 2024-03-17 11:47 | P.GSCN ---
History of Present Illness Consult date: 03/17/24 Reason for Consult: right breast skin thickening Requesting physician: Germaine Lim History of present illness: Ángela is an 89 year old female seen in consultation for Germaine Lim regarding skin thickening of the right breast. She had a bilateral mammogrma on 01-14-24 which was BIRAD 0 resulting in a right breast ultrasound on 01-28-24. This was personally reviewed and discussed with DR. Capone. It was felt the findings on the ultrasound correlated with benign cyst. The mammogram was not available for review. The patient had a right breast lumpectomy and radiation therapy for an invasive cancer 2006, it was found on a mammogram. She did not feel it. She did not have any chemotherapy or hormone therapy. She was told it was stage 1. It was treated in [place] she is not sure of the Dr.s name. She has not noted any new lumps, masses or nodules in her breast. She has not had any other surgery on her breast. She has not had any recent trauma or infection in her breast. caffeine: decaff coffee 2/day nicotine: none chocolate: occasional BCP: none hormone: none Family History: sister: ovarian cancer at 78 mother: of acute leukemia at 85 patient: breast cancer 2006 Hormonal History: menarche: 15 G4M1P3, age at first : 24, breast fed: no hysterectomy secondary to fibroids left ovaries; about 37 Surgical History: gallbladder kidney stone 2 back surgeries knee replacement right breast ? 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 ordered MRI on neck difficulty walking Social History: nicotine: none alcohol: none drugs: none Review of Systems - Constitutional Denies fever, Denies weight loss - EENT Eyes: denies as per HPI Ears: bilateral: decreased hearing (hearing aids) Ears, nose, mouth and throat: Denies dysphagia - Breasts bilateral: as per HPI - Cardiovascular Denies chest pain, Denies shortness of breath - Respiratory Denies cough, Denies 7 - Gastrointestinal Reports as per HPI, Reports diarrhea - Genitourinary Genitourinary: Denies dysuria, Denies hematuria Menstruation: Reports post hysterectomy - Musculoskeletal Reports as per HPI - Integumentary Denies rash, Denies unusual bruising - Neurological Denies headaches, Denies syncope - Psychiatric Reports as per HPI - Endocrine Endocrine Comment(s): diabetic Reports as per HPI - Hematologic/Lymphatic Denies easy bleeding, Denies easy bruising Hematologic/Lymphatic Comment(s): takes an aspirin daily - Allergic/Immunologic Reports as per HPI Past Medical History Past Medical History: Cancer, Diabetes Mellitus, Eye Disorder, GERD/Reflux, Hypertension, Osteoarthritis (OA) Additional Past Medical History / Comment(s): herminia knee pain,torn meniscus rt knee,hx 2006 R breast cancer with lumpectomy/radiation, NIDDM type II, neurop athy bilateral hands/feet, past hx anemia, occasional low back pain, bilateral glaucoma History of Any Multi-Drug Resistant Organisms: None Reported Past Surgical History: Back Surgery, Breast Surgery, Cholecystectomy, Hysterectomy Additional Past Surgical History / Comment(s): R breast lumpectomy, D&C, low back surgery x2 including caging, EGD, colonoscopy, surgery for kidney stones,sinus surgery, OOPHERECTOMY- BILATERAL Past Anesthesia/Blood Transfusion Reactions: No Reported Reaction, Motion Sickness Additional Past Anesthesia/Blood Transfusion Reaction / Comm: Pt has received blood in past without reaction. Past Psychological History: No Psychological Hx Reported Additional Psychological History / Comment(s): Pt resides with spouse. She uses a cane prn. She is independent. Smoking Status: Never smoker Past Alcohol Use History: Rare Past Drug Use History: None Reported - Past Family History Father Family Medical History: No Reported History Additional Family Medical History / Comment(s): Father in a hunting accident Mother Family Medical History: Cancer Additional Family Medical History / Comment(s): Leukemia Medications and Allergies Home Medications Medication Instructions Recorded Confirmed Type Glimepiride [Amaryl] 1 mg PO DAILY 12/06/18 03/17/24 History Latanoprost [Xalatan 0.005%] 1 drop BOTH EYES HS 12/06/18 03/17/24 History Timolol 0.5% Ophth Soln [Timoptic 1 drop BOTH EYES BID 12/06/18 03/17/24 History 0.5% Ophth Soln] Ascorbic Acid [Vitamin C] 1,000 mg PO HS 01/22/21 03/17/24 History Aspirin [Adult Low Dose Aspirin EC] 81 mg PO DAILY 02/20/23 03/17/24 History Brinzolamide/Brimonidine Tart 1 drop BOTH EYES TID 02/20/23 03/17/24 History [Simbrinza 1%-0.2% Eye Drops] Cholecalciferol [Vitamin D3 (25 50 mcg PO HS 02/20/23 03/17/24 History Mcg = 1000 Iu)] Cholestyramine/Aspartame 4 gm PO TID-W/MEALS 02/20/23 03/17/24 History [Cholestyramine Light Packet] Cranberry Fruit Concentrate [Azo 250 mg PO BID 02/20/23 03/17/24 History Cranberry] Cyanocobalamin (Vitamin B-12) 5,000 mcg PO DAILY 02/20/23 03/17/24 History [Vitamin B-12] Escitalopram Oxalate [Lexapro] 10 mg PO DAILY 02/20/23 03/17/24 History Ferrous Sulfate [Iron (65 MG 325 mg PO DAILY 02/20/23 03/17/24 History Elemental)] Fluticasone Nasal [place] [Flonase 1 spray EA NOSTRIL BID 02/20/23 03/17/24 History Nasal [place]] Lactobacillus Acidophilus 1 cap PO HS 02/20/23 03/17/24 History [Florajen Acidophilus] Omeprazole 20 mg PO DAILY 02/20/23 03/17/24 History Pioglitazone [Actos] 15 mg PO DAILY 02/20/23 03/17/24 History Turmeric Root Extract [Turmeric] 1,053 mg PO BID 02/20/23 03/17/24 History atenoloL [Tenormin] 25 mg PO DAILY 02/20/23 03/17/24 History lisinopriL [Zestril] 20 mg PO HS 02/20/23 03/17/24 History Amoxic-Pot Clav 875-125Mg 1 tab PO BID 10 Days #20 tab 02/24/23 03/17/24 Rx [Augmentin 875-125] Acetaminophen Tab [Tylenol] 650 mg PO Q6HR PRN tab 02/25/23 03/17/24 Rx Albuterol Nebulized [Ventolin 2.5 mg INHALATION RT-Q6H PRN ml 02/25/23 03/17/24 Rx Nebulized] Famotidine [Pepcid] 20 mg PO DAILY tab 02/25/23 03/17/24 Rx Allergies Allergy/AdvReac Type Severity Reaction Status Date / Time atorvastatin [From Lipitor] Allergy muscle pain Verified 03/17/24 11:00 rosuvastatin [From Crestor] Allergy muscle pain Verified 03/17/24 11:00 sulfamethoxazole Allergy Nausea & Verified 03/17/24 11:00 [From Bactrim] Vomiting trimethoprim [From Bactrim] Allergy Nausea & Verified 03/17/24 11:00 Vomiting Surgical - Exam Vital Signs Temp Pulse Resp BP Pulse Ox 97.8 F 63 16 177/81 94 L 03/17/24 11:01 03/17/24 11:01 03/17/24 11:01 03/17/24 11:01 03/17/24 11:01 - General no distress - Eyes normal ocular movement - ENT wears hearing aids - Neck trachea midline - Respiratory normal respiratory effort, clear to auscultation - Cardiovascular Heart Sounds: normal: S1, S2 - Abdomen Abdomen: soft, non tender, no guarding, no rigid, no rebound - Integumentary normal turgor - Musculoskeletal difficulty with ambulation uses a wheel chair - Psychiatric oriented to time, oriented to person, oriented to place, speech is normal, memory intact Breast Exam: does not wear a bra inspection: right breast smaller than left breast, post op and post radiation changes palpation: right breast: Postsurgical postradiation changes, examination does not reveal any discrete lump mass or nodule in the breast Right axilla: No adenopathy of concern Left breast: No dominant masses or nodules of concern, fibrocystic changes Left axilla: No adenopathy of concern Patient was examined in the upright position she is unable to get on the examining table Results ultrasound and mammogram personally reviewed and discussed with Dr. Miles, compared to prior 2019 mammogram changes in the skin felt to be post treatment Assessment and Plan Assessment: Impression: patient status post right breast lumpectomy and radiation therapy 2006 mammogram and ultrasound January 2024 some changes right breast skin thickening,a nd ? shadow at 9:00 Plan: breast MRI and follow up after repeat right breast mammogram dn ultrasound in 6 months consider skin biopsy/ patient declined CC: Germaine Lim
== END ==
LOC: WWCWWP 09:39
PROVIDERS: ATTEND Surgery
DX: Z48.817 Encounter for surgical aftercare following surgery on the skin and subcutaneous tissue (principal); R23.4 Changes in skin texture; Z80.3 Family history of malignant neoplasm of breast; Z92.3 Personal history of irradiation; Z85.3 Personal history of malignant neoplasm of breast; Z88.8 Allergy status to other drugs, medicaments and biological substances; Z88.2 Allergy status to sulfonamides; Z88.1 Allergy status to other antibiotic agents

== ENCOUNTER → 2024-03-27 | Outpatient (CLI) | payer MEDICARE, BC ==
--- NOTE | 2024-04-06 09:59 | BMR ---
EXAM DATE: 03/27/2024 EXAM DESCRIPTION: MRI-Breast Bilat (W/WO Contrast) INDICATION: Previous history of breast cancer, abnormal imaging COMPARISON: PRIOR MRIs: None available. Correlation to mammograms: 01/11/2024, 03/27/2019, 09/04/2019. Correlation to ultrasound: 09/04/2019, 01/26/2024 CONTRAST: 7 cc Gadavist IV gadolinium contrast TECHNIQUE: Study was performed at [facility] with Radiologic interpretation by [facility] Multiplanar multisequence MR imaging of both breasts was performed with a dedicated breast coil. Images were obtained before and after administration of IV gadolinium, using the standard breast mass protocol. Computer aided detection was utilized for interpretation. FINDINGS: LMP: Postmenopausal General breast composition: There are scattered areas of fibroglandular tissue Background parenchymal enhancement: Minimal RIGHT BREAST: The T2 weighted series shows no areas of abnormal signal intensity. There is postsurgical changes with calcifications in the right breast. Review of the dynamic series shows no early or abnormal enhancement. LEFT BREAST: The T2 weighted series shows no areas of abnormal signal intensity. Review of the dynamic series shows no early or abnormal enhancement. LYMPH NODES: There is no evidence of internal mammary or axillary adenopathy. Miscellaneous findings:Heart is enlarged. Pulmonary artery is prominent measuring up to 3.6 cm. IMPRESSION: RIGHT BREAST: No MR evidence of malignancy. LEFT BREAST: No MR evidence of malignancy. OVERALL ASSESSMENT -- BI-RADS 2: Benign MTDD
== END | disposition home or self-care (01) ==
LOC: RADMRIMAIN 13:22
PROVIDERS: ATTEND Surgery
DX: Z85.3 Personal history of malignant neoplasm of breast
CPT/HCPCS: 77049

== ENCOUNTER → 2024-04-14 | Outpatient (CLI) | payer MEDICARE, BC ==
[2024-04-14 14:19] VITALS: BP 126/53; PULSE 63; RESP 17; TEMP 97.9
--- NOTE | 2024-04-14 14:50 | P.PN ---
Subjective Progress Note Date: 04/14/24 Principal diagnosis: right breast cancer 2006 Ángela is an 89 year old female seen in consultation for Germaine Lim regarding skin thickening of the right breast. She had a bilateral mammogrma on 01-14-24 which was BIRAD 0 resulting in a right breast ultrasound on 01-28-24. T his was personally reviewed and discussed with DR. Capone. It was felt the findings on the ultrasound correlated with benign cyst. The mammogram was not available for review. The patient had a right breast lumpectomy and radiation therapy for an invasive cancer 2006, it was found on a mammogram. She did not feel it. She did not have any chemotherapy or hormone therapy. She was told it was stage 1. It was treated in [place] she is not sure of the Dr.s name. She has not noted any new lumps, masses or nodules in her breast. She has not had any other surgery on her breast. She has not had any recent trauma or infection in her breast. bilateral breast MRI on 03-27-24 benign BIRADS 2 caffeine: decaff coffee 2/day nicotine: none chocolate: occasional BCP: none hormone: none Family History: sister: ovarian cancer at 78 mother: of acute leukemia at 85 patient: breast cancer 2006 Hormonal History: menarche: 15 G4M1P3, age at first : 24, breast fed: no hysterectomy secondary to fibroids left ovaries; about 37 Surgical History: gallbladder kidney stone 2 back surgeries knee replacement right breast ? 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 ordered MRI on neck difficulty walking Social History: nicotine: none alcohol: none drugs: none Review of Systems - Constitutional Denies fever, Denies weight loss - EENT Eyes: denies as per HPI Ears: bilateral: decreased hearing (hearing aids) Ears, nose, mouth and throat: Denies dysphagia - Breasts bilateral: as per HPI - Cardiovascular Denies chest pain, Denies shortness of breath - Respiratory Denies cough, - Gastrointestinal Reports as per HPI, Reports diarrhea - Genitourinary Genitourinary: Denies dysuria, Denies hematuria Menstruation: Reports post hysterectomy - Musculoskeletal Reports as per HPI - Integumentary Denies rash, Denies unusual bruising - Neurological Denies headaches, Denies syncope - Psychiatric Reports as per HPI - Endocrine Endocrine Comment(s): diabetic Reports as per HPI - Hematologic/Lymphatic Denies easy bleeding, Denies easy bruising Hematologic/Lymphatic Comment(s): takes an aspirin daily - Allergic/Immunologic Reports as per HPI Past Medical History Past Medical History: Cancer, Diabetes Mellitus, Eye Disorder, GERD/Reflux, Hypertension, Osteoarthritis (OA) Additional Past Medical History / Comment(s): hreminia knee pain,torn meniscus rt knee,hx 2006 R breast cancer with lumpectomy/radiation, NIDDM type II, neuropathy bilateral hands/feet, past hx anemia, occasional low back pain, bilateral glaucoma History of Any Multi-Drug Resistant Organisms: None Reported Past Surgical History: Back Surgery, Breast Surgery, Cholecystectomy, Hysterectomy Additional Past Surgical History / Comment(s): R breast lumpectomy, D&C, low back surgery x2 including caging, EGD, colonoscopy, surgery for kidney stones,sinus surgery, OOPHERECTOMY- BILATERAL Past Anesthesia/Blood Transfusion Reactions: No Reported Reaction, Motion Sickness Additional Past Anesthesia/Blood Transfusion Reaction / Comm: Pt has received blood in past without reaction. Past Psychological History: No Psychological Hx Reported Additional Psychological History / Comment(s): Pt resides with spouse. She uses a cane prn. She is independent. Smoking Status: Never smoker Past Alcohol Use History: Rare Past Drug Use History: None Reported - Past Family History Father Family Medical History: No Reported History Additional Family Medical History / Comment(s): Father in a hunting accident Mother Family Medical History: Cancer Additional Family Medical History / Comment(s): Leukemia Medications and Allergies Home Medications Medication Instructions Recorded Confirmed Type Glimepiride [Amaryl] 1 mg PO DAILY 12/06/18 03/17/24 History Latanoprost [Xalatan 0.005%] 1 drop BOTH EYES HS 12/06/18 03/17/24 History Timolol 0.5% Ophth Soln [Timoptic 1 drop BOTH EYES BID 12/06/18 03/17/24 History 0.5% Ophth Soln] Ascorbic Acid [Vitamin C] 1,000 mg PO HS 01/22/21 03/17/24 History Aspirin [Adult Low Dose Aspirin EC] 81 mg PO DAILY 02/20/23 03/17/24 History Brinzolamide/Brimonidine Tart 1 drop BOTH EYES TID 02/20/23 03/17/24 History [Simbrinza 1%-0.2% Eye Drops] Cholecalciferol [Vitamin D3 (25 50 mcg PO HS 02/20/23 03/17/24 History Mcg = 1000 Iu)] Cholestyramine/Aspartame 4 gm PO TID-W/MEALS 02/20/23 03/17/24 History [Cholestyramine Light Packet] Cranberry Fruit Concentrate [Azo 250 mg PO BID 02/20/23 03/17/24 History Cranberry] Cyanocobalamin (Vitamin B-12) 5,000 mcg PO DAILY 02/20/23 03/17/24 History [Vitamin B-12] Escitalopram Oxalate [Lexapro] 10 mg PO DAILY 02/20/23 03/17/24 History Ferrous Sulfate [Iron (65 MG 325 mg PO DAILY 02/20/23 03/17/24 History Elemental)] Fluticasone Nasal [place] [Flonase 1 spray EA NOSTRIL BID 02/20/23 03/17/24 History Nasal [place]] Lactobacillus Acidophilus 1 cap PO HS 02/20/23 03/17/24 History [Florajen Acidophilus] Omeprazole 20 mg PO DAILY 02/20/23 03/17/24 History Pioglitazone [Actos] 15 mg PO DAILY 02/20/23 03/17/24 History Turmeric Root Extract [Turmeric] 1,053 mg PO BID 02/20/23 03/17/24 History atenoloL [Tenormin] 25 mg PO DAILY 02/20/23 03/17/24 History lisinopriL [Zestril] 20 mg PO HS 02/20/23 03/17/24 History Amoxic-Pot Clav 875-125Mg 1 tab PO BID 10 Days #20 tab 02/24/23 03/17/24 Rx [Augmentin 875-125] Acetaminophen Tab [Tylenol] 650 mg PO Q6HR PRN tab 02/25/23 03/17/24 Rx Albuterol Nebulized [Ventolin 2.5 mg INHALATION RT-Q6H PRN ml 02/25/23 03/17/24 Rx Nebulized] Famotidine [Pepcid] 20 mg PO DAILY tab 02/25/23 03/17/24 Rx Allergies Allergy/AdvReac Type Severity Reaction Status Date / Time atorvastatin [From Lipitor] Allergy muscle pain Verified 03/17/24 11:00 rosuvastatin [From Crestor] Allergy muscle pain Verified 03/17/24 11:00 sulfamethoxazole Allergy Nausea & Verified 03/17/24 11:00 [From Bactrim] Vomiting trimethoprim [From Bactrim] Allergy Nausea & Verified 03/17/24 11:00 Vomiting - General no distress - Eyes normal ocular movement - ENT wears hearing aids - Neck trachea midline - Integumentary normal turgor - Musculoskeletal difficulty with ambulation uses a wheel chair - Psychiatric oriented to time, oriented to person, oriented to place, speech is normal, memory intact Breast Exam: does not wear a bra inspection: right breast smaller than left breast, post op and post radiation changes palpation: right breast: Postsurgical postradiation changes, examination does not reveal any discrete lump mass or nodule in the breast Right axilla: No adenopathy of concern Patient was examined in the upright position she is unable to get on the examining table Results ultrasound and mammogram personally reviewed and discussed with Dr. Miles, compared to prior 2019 mammogram changes in the skin felt to be post treatment Breast MRI 03-27-24 BIRAD 2 Assessment and Plan Assessment: Impression: patient status post right breast lumpectomy and radiation therapy 2006 mammogram and ultrasound January 2024 some changes right breast skin thickening,a nd ? shadow at 9:00 Plan: repeat right breast mammogram and ultrasound in 6 months; October 2024 with appointment follow up sooner any concerns CC: Germaine Lim Additional CC's: Germaine Lim Objective - Vital Signs Vital signs: Vital Signs Temp 97.9 F 04/14/24 14:12 Pulse 63 04/14/24 14:12 Resp 17 04/14/24 14:12 BP 126/53 04/14/24 14:12 Pulse Ox 96 04/14/24 14:12 FiO2 Intake & Output 04/13/24 04/14/24 04/14/24 18:59 06:59 18:59 Weight 72.575 kg
== END ==
LOC: WWCWWP 13:45
PROVIDERS: ATTEND Surgery
DX: R92.8 Other abnormal and inconclusive findings on diagnostic imaging of breast (principal); C50.911 Malignant neoplasm of unspecified site of right female breast; R23.4 Changes in skin texture; Z80.3 Family history of malignant neoplasm of breast; Z48.817 Encounter for surgical aftercare following surgery on the skin and subcutaneous tissue; Z92.3 Personal history of irradiation; Z88.2 Allergy status to sulfonamides; Z88.1 Allergy status to other antibiotic agents; Z88.8 Allergy status to other drugs, medicaments and biological substances